=== PATIENT | male | born 1975 | race Caucasian/White ===

== ENCOUNTER 2022-10-01 12:27 | Emergency (ER) | payer MEDICAID ==
[~2022-10-01] VITALS: Ht 160 cm; Wt 84.1 kg
[~2022-10-01 12:27] MED LIST: GEMF600T89 PO; PANT-47 PO
[2022-10-01 16:15] LABS: BASOPHILS % (AUTO) 0.6 % (0-1); EOSINOPHILS # (AUTO) 0.2 X10'3 (0-0.9); HEMATOCRIT 38.5 % (42.0-52.0); HEMOGLOBIN 12.7 g/dl (14.0-17.9); LYMPHOCYTES # (AUTO) 1.8 X10'3 (1.1-4.8); LYMPHOCYTES % (AUTO) 22.2 % (21-51); MEAN CORPUSCULAR HEMOGLOBIN 28.6 PG (27.0-31.0); MEAN CORPUSCULAR VOLUME 86.6 FL (78-98); MEAN PLATELET VOLUME 6.3 FL (7.4-10.4); MONOCYTES # (AUTO) 1.1 X10'3 (0-0.9); MONOCYTES % (AUTO) 13.3 % (2-12); NEUTROPHILS % (AUTO) 60.9 % (42-75); PLATELET COUNT 322 X10'3 (140-440); RED BLOOD COUNT 4.45 X10'6 (4.70-6.10); RED CELL DISTRIBUTION WIDTH 18.7 % (11.5-14.5); WHITE BLOOD COUNT 8.2 X10'3 (4.5-11.0)
[2022-10-01 16:25] LABS: ALANINE AMINOTRANSFERASE 22 U/L (12-78); ALBUMIN 3.7 G/DL (3.4-5.0); ALBUMIN/GLOBULIN RATIO 0.8 (1.1-1.5); ALKALINE PHOSPHATASE 61 IU/L (46-116); ANION GAP 8 (8-16); ASPARTATE AMINO TRANSFERASE 21 U/L (10-37); BILIRUBIN,TOTAL 0.4 MG/DL (0.1-1.0); BLOOD UREA NITROGEN 12 MG/DL (7-18); BUN/CREATININE RATIO 15.4 (10.0-20.0); CALCIUM 9.3 MG/DL (8.5-10.1); CHLORIDE 101 MMOL/L (99-107); CREATININE 0.78 MG/DL (0.60-1.10); GLUCOSE 106 MG/DL (70-104); LIPASE 66 U/L (73-393); POTASSIUM 4.4 MMOL/L (3.5-5.1); SODIUM 137 MMOL/L (135-145); TOTAL CARBON DIOXIDE 27.6 MMOL/L (24-32); TOTAL PROTEIN 8.2 G/DL (6.4-8.2); eGFR > 90 ML/MIN
[2022-10-01 17:56] LABS: PLATELET ESTIMATE NORMAL
[2022-10-01 17:58] LABS: ANISOCYTOSIS 1+
[2022-10-01 18:31] VITALS: BP 124/76
== END 2022-10-01 18:34 | disposition home or self-care (01) ==
LOC: ER 12:27
DX: L53.8 Other specified erythematous conditions (principal); Z88.0 Allergy status to penicillin; Z79.899 Other long term (current) drug therapy
CPT/HCPCS: 36415; 71045; 80053; 83690; 85008; 85025; 93005; 93971; 99285

== ENCOUNTER 2022-11-17 02:12 | Inpatient (IN) | payer MEDICAID ==
[~2022-11-17] VITALS: Ht 160 cm; Wt 86.4 kg
[2022-11-17] VITALS (14 sets, daily range): BP systolic 89–124; BP diastolic 50–68
[~2022-11-17 02:12] MED LIST changes: +PRED20TA PO
[2022-11-17] MEDS ORDERED: nitroGLYCERIN 0.4mg/hour patch TD ONE (02:35)
[2022-11-17] MEDS ORDERED: normal saline 1000ML IV soln IVB ONE (02:35)
[2022-11-17 03:15] LABS: TOTAL CARBON DIOXIDE 29.3 MMOL/L (24-32)
[2022-11-17 03:38] LABS: ALANINE AMINOTRANSFERASE 28 U/L (12-78); ALBUMIN 3.6 G/DL (3.4-5.0); ALKALINE PHOSPHATASE 87 IU/L (46-116); ANION GAP 6 (8-16); ASPARTATE AMINO TRANSFERASE 17 U/L (10-37); BILIRUBIN,TOTAL 0.2 MG/DL (0.1-1.0); BLOOD UREA NITROGEN 20 MG/DL (7-18); BUN/CREATININE RATIO 25.3 (10.0-20.0); CALCIUM 8.6 MG/DL (8.5-10.1); CHLORIDE 105 MMOL/L (99-107); CREATININE 0.79 MG/DL (0.60-1.10); GLUCOSE 112 MG/DL (70-104); SODIUM 140 MMOL/L (135-145); TOTAL PROTEIN 7.2 G/DL (6.4-8.2); eGFR > 90 ML/MIN
[2022-11-17 03:45] LABS: MAGNESIUM 2.2 MG/DL (1.5-2.4)
[2022-11-17 03:50] LABS: BASOPHILS # (AUTO) 0.1 X10'3 (0-0.2); BASOPHILS % (AUTO) 1.1 % (0-1); EOSINOPHILS # (AUTO) 0.2 X10'3 (0-0.9); EOSINOPHILS % (AUTO) 1.3 % (0-6); HEMATOCRIT 32.7 % (42.0-52.0); HEMOGLOBIN 10.9 g/dl (14.0-17.9); LYMPHOCYTES # (AUTO) 2.4 X10'3 (1.1-4.8); LYMPHOCYTES % (AUTO) 17.5 % (21-51); MEAN CORPUSCULAR HEMOGLOBIN 29.9 PG (27.0-31.0); MEAN CORPUSCULAR HGB CONC 33.2 g/dL (33.0-36.5); MEAN CORPUSCULAR VOLUME 90.1 FL (78-98); MEAN PLATELET VOLUME 6.4 FL (7.4-10.4); NEUTROPHILS # (AUTO) 9.2 X10'3 (1.8-7.7); NEUTROPHILS % (AUTO) 66.1 % (42-75); PLATELET COUNT 348 X10'3 (140-440); RED BLOOD COUNT 3.63 X10'6 (4.70-6.10); RED CELL DISTRIBUTION WIDTH 18.6 % (11.5-14.5); WHITE BLOOD COUNT 13.9 X10'3 (4.5-11.0)
--- NOTE | 2022-11-17 04:40 | NUR ---
NITRO PATCH REMOVED 408. R/T BP 93/62 AND NEW HEADACHE
[2022-11-17] MEDS ORDERED: PREG75CA75 PO (04:50)
[2022-11-17] MEDS ORDERED: ALBU18HF2 IH (04:50)
[2022-11-17] MEDS ORDERED: TIOT18CA3 INH (04:50)
[2022-11-17] MEDS ORDERED: LEVO50TA8 PO (04:50)
[2022-11-17] MEDS ORDERED: magnesium Cl slow-release 64mg tablet PO PRN (04:50)
[2022-11-17] MEDS ORDERED: magnesium hydroxide 30ml (MOM) UD suspension PO PRN (04:50)
[2022-11-17] MEDS ORDERED: ondansetron/PF 4mg/2ml inj IV PRN (04:50)
[2022-11-17] MEDS ORDERED: HYDROcodone/acetaminophen 5mg/325mg tablet PO PRN (04:50)
[2022-11-17] MEDS ORDERED: acetaminophen 325mg tablet PO PRN ×2 (04:50)
[2022-11-17] MEDS ORDERED: potassium Cl 40MEQ/1/2NS 520ml 520 ML IV PRN (04:50)
[2022-11-17] MEDS ORDERED: magnesium 4gm in 100ml NS 100 ML IV PRN (04:50)
[2022-11-17] MEDS ORDERED: ACET325T55 PO (04:50)
[2022-11-17] MEDS ORDERED: TRAZ-251 PO (04:50)
[2022-11-17] MEDS ORDERED: potassium Cl 20 mEq SR tablet PO PRN ×2 (04:50)
[2022-11-17] MEDS ORDERED: mag hydrox/Alum hydrox/simeth 30ml oral suspension PO PRN (04:50)
[2022-11-17] MEDS ORDERED: APIX5TAB3 PO (04:50)
[2022-11-17] MEDS ORDERED: HYDR-3968 PO (04:50)
[2022-11-17] MEDS ORDERED: NICO-631 TOP (04:50)
[2022-11-17] MEDS ORDERED: magnesium 2GM in 50ml NS 50 ML IV PRN (04:50)
[2022-11-17] MEDS ORDERED: morphine 2 MG/ML inj. syringe IV PRN (04:50)
[2022-11-17] MEDS ORDERED: DULO60CA65 PO (04:50)
[2022-11-17] MEDS ORDERED: DAPS100T2 PO (04:50)
--- NOTE | 2022-11-17 04:50 | NUR ---
PT COMPLAINS OF DIAPHORESIS. STAT EKG OBTAINED. AWARE.
[2022-11-17] MEDS ORDERED: NITR0.4T51 SL (04:52)
[2022-11-17] MEDS ORDERED: OMEP40CA21 PO (04:54)
[2022-11-17] MEDS: normal saline 1000ml 1,000 ML IV SCH ×2 (05:05→15:11)
[2022-11-17] MEDS ORDERED: levoFLOXACIN 250mg tablet PO ONE (05:40)
[2022-11-17] MEDS ORDERED: albuterol 2.5 MG/3 ML nebule NEB PRN (05:50)
[2022-11-17] MEDS ORDERED: levoFLOXACIN-Levaquin 500mg/D5 100 ML IV ONE (06:00)
[2022-11-17 06:21] LABS: CHOL/HDL RATIO 5.1 (0.00-4.99); CHOLESTEROL 117 MG/DL (0-200); HDL CHOLESTEROL 23 MG/DL (35-60); LDL CHOLESTEROL 56 MG/DL (50-100); TRIGLYCERIDES 285 MG/DL (20-135)
[2022-11-17] MEDS: docusate sod 100mg capsule PO SCH ×2 (06:29→20:20)
[2022-11-17] MEDS: pantoprazole 40mg Tablet.DR PO SCH ×2 (06:29→08:39)
[2022-11-17] MEDS: levoTHYROXINE 25mcg tablet PO SCH (06:29)
[2022-11-17] MEDS: morphine 2 MG/ML inj. syringe IV PRN (06:35)
[2022-11-17 07:10] LABS: ANISOCYTOSIS 2+; PLATELET ESTIMATE NORMAL; POLYCHROMASIA 1+; ROULEAUX 1+
--- NOTE | 2022-11-17 07:39 | NUR ---
REPORT TAKEN FROM ED RN . pATIENT ARRIVED TO FLOOR WITH NO C/O CP AT THIS TIME. VITALS STABLE. TELEL ON. COMPUTER AIDE IN ROOM . PATIENT ORIENTED TO ROOM AND CALL LIGHT. [facility] NOTIFIED PATIENT HAS ARRIVED TO FLOOR.
[2022-11-17] MEDS ORDERED: DAPSONE 100 MG PO SCH (08:00)
[2022-11-17] MEDS: duloxetine 30mg CAPSULE.DR PO SCH (08:39)
[2022-11-17] MEDS: pregabalin 75mg capsule PO SCH ×2 (08:39→20:20)
[2022-11-17] MEDS: apixaban 5mg tablet PO SCH ×2 (08:40→20:21)
[2022-11-17] MEDS: nicotine 14mg patch - 24hr TD SCH (08:41)
[2022-11-17] MEDS: ipratropium 0.5 MG/2.5ML nebule NEB SCH ×3 (09:00→20:27)
--- NOTE | 2022-11-17 09:18 | NUR ---
patient off floor to stress lab
[2022-11-17 09:27] LABS: D-DIMER 0.56 MG/L FEU (0-0.50)
[2022-11-17] MEDS ORDERED: regadenoson 0.4mg/5ml syringe IV ONE (09:35)
--- NOTE | 2022-11-17 10:50 | NUR ---
PATIENT BACK FROM [facility]UC [facility]
--- NOTE | 2022-11-17 12:00 | NUR ---
Page Sent promotional table spacer PAGER ID: [phone] MESSAGE: [id number] SAI. STRESS TEST RESULT S AVAILABLE IN [employer]. OK TO FEED PATIENT HEART HEALTHY DIET? [email or web address] (108 character message out of a maximum of 240)
--- NOTE | 2022-11-17 12:01 | NUR ---
HOME MEDS TAKEN TO PHARMACY
--- NOTE | 2022-11-17 12:03 | NUR ---
NOTIFIED BY PHARMACY THAT [employer] [facility] HAS BLACK MOLD IN IT AND THEY WILL NOT BE DISTRIBUTING IT
--- NOTE | 2022-11-17 18:00 | NUR ---
Patient in room PCU 3014. I have received report from Helena MEDINA and had the opportunity to ask questions and assume patient care.
--- NOTE | 2022-11-17 18:05 | NUR ---
Problems reprioritized. Patient report given, questions answered & plan of care reviewed with CHET MEDINA. PATIENT RESTING IN BED IN NO ACUTE DISTRESS.
[2022-11-17] MEDS ORDERED: enoxaparin 40mg/0.4ml syringe SQ SCH (20:00)
[2022-11-17] MEDS: HYDROcodone/acetaminophen 10/325mg tab PO PRN (20:21)
[2022-11-17] MEDS: traZODone 50mg tablet PO SCH (20:21)
[2022-11-18] VITALS (7 sets, daily range): BP systolic 90–121; BP diastolic 49–72
[2022-11-18] MEDS: normal saline 1000ml 1,000 ML IV SCH (00:50)
--- NOTE | 2022-11-18 01:46 | NUR ---
patient slept on/off throughout the night. patient was able to walk to bathroom.
[2022-11-18] MEDS: ipratropium 0.5 MG/2.5ML nebule NEB SCH ×3 (07:04→20:45)
[2022-11-18 07:21] LABS: BASOPHILS # (AUTO) 0.1 X10'3 (0-0.2); BASOPHILS % (AUTO) 0.9 % (0-1); EOSINOPHILS # (AUTO) 0.3 X10'3 (0-0.9); HEMATOCRIT 33.5 % (42.0-52.0); HEMOGLOBIN 10.9 g/dl (14.0-17.9); LYMPHOCYTES # (AUTO) 2.5 X10'3 (1.1-4.8); LYMPHOCYTES % (AUTO) 25.5 % (21-51); MEAN CORPUSCULAR HEMOGLOBIN 29.6 PG (27.0-31.0); MEAN CORPUSCULAR HGB CONC 32.6 g/dL (33.0-36.5); MEAN CORPUSCULAR VOLUME 90.6 FL (78-98); MEAN PLATELET VOLUME 6.6 FL (7.4-10.4); MONOCYTES # (AUTO) 1.4 X10'3 (0-0.9); MONOCYTES % (AUTO) 14.3 % (2-12); NEUTROPHILS # (AUTO) 5.4 X10'3 (1.8-7.7); NEUTROPHILS % (AUTO) 56.3 % (42-75); PLATELET COUNT 334 X10'3 (140-440); RED BLOOD COUNT 3.69 X10'6 (4.70-6.10); RED CELL DISTRIBUTION WIDTH 18.6 % (11.5-14.5); WHITE BLOOD COUNT 9.6 X10'3 (4.5-11.0)
[2022-11-18 07:22] LABS: ALANINE AMINOTRANSFERASE 20 U/L (12-78); ALBUMIN 3.1 G/DL (3.4-5.0); ALBUMIN/GLOBULIN RATIO 0.9 (1.1-1.5); ALKALINE PHOSPHATASE 50 IU/L (46-116); ANION GAP 6 (8-16); ASPARTATE AMINO TRANSFERASE 18 U/L (10-37); BILIRUBIN,TOTAL 0.4 MG/DL (0.1-1.0); BLOOD UREA NITROGEN 13 MG/DL (7-18); BUN/CREATININE RATIO 16.3 (10.0-20.0); CALCIUM 8.5 MG/DL (8.5-10.1); CHLORIDE 107 MMOL/L (99-107); GLUCOSE 100 MG/DL (70-104); POTASSIUM 4.3 MMOL/L (3.5-5.1); SODIUM 140 MMOL/L (135-145); TOTAL CARBON DIOXIDE 27.1 MMOL/L (24-32); TOTAL PROTEIN 6.5 G/DL (6.4-8.2); eGFR > 90 ML/MIN
[2022-11-18] MEDS: levoTHYROXINE 25mcg tablet PO SCH (07:52)
[2022-11-18] MEDS: docusate sod 100mg capsule PO SCH ×2 (07:52→20:27)
[2022-11-18] MEDS: duloxetine 30mg CAPSULE.DR PO SCH (07:52)
[2022-11-18] MEDS: pregabalin 75mg capsule PO SCH ×2 (07:52→20:27)
[2022-11-18] MEDS: HYDROcodone/acetaminophen 10/325mg tab PO PRN ×3 (07:53→20:25)
[2022-11-18] MEDS: pantoprazole 40mg Tablet.DR PO SCH (07:53)
[2022-11-18] MEDS: apixaban 5mg tablet PO SCH ×2 (07:53→20:28)
[2022-11-18] MEDS: DAPSONE 100 MG PO SCH (07:54)
[2022-11-18] MEDS: nicotine 14mg patch - 24hr TD SCH (07:55)
--- NOTE | 2022-11-18 09:21 | NUR ---
patient c/o chest pressure following walking. HR 140's . EKG being done . Dr Woodson made aware . will continue to monitor
[2022-11-18] MEDS: morphine 2 MG/ML inj. syringe IV PRN (10:00)
[2022-11-18] MEDS ORDERED: iohexol 350MG/ML 100ml bottle IV ONE (11:24)
[2022-11-18] MEDS: aspirin 81mg tab.chew PO SCH (12:56)
[2022-11-18] MEDS: isosorbide mononitrate 30mg tab.SR.24H PO SCH (12:57)
--- NOTE | 2022-11-18 14:13 | NUR ---
PRESSURE ULCER EDUCATION: DEFINITION: A pressure ulcer is an area of skin that breaks down when you stay in one position too long. The constant pressure against the skin reduces the blood flow to that area and the affected tissue dies. CAUSES: "Being bedridden or in a wheelchair "Fragile skin "Having a chronic condition, such as diabetes or vascular disease "Inability to move certain parts of your body without assistance "Older age "Incontinence of urine or stool SYMPTOMS: "A reddened area that DOES NOT turn white when pressed on - this can be the beginning of a pressure ulcer "A blister, deep sore or a crater - these can be advanced pressure ulcers FIRST AID: "Relieve the pressure on this area "Keep the area clean and dry "Call your primary doctor if you see any of the above symptoms "DO NOT massage the area "DO NOT use a donut shaped or ring shaped pillow- these actually interfere with the blood flow and cause complications PREVENTION: "Check for pressure ulcers everyday "Change position at least every two hours to relieve pressure "Use items that help relieve pressure- pillows, sheepskin, foam padding, and powders. "Keep skin clean and dry "Eat healthy well balanced meals "Exercise daily IF YOU SEE ANY OF THESE SYMPTOMS WHILE IN THE HOSPITAL - TELL YOUR NURSE IMMEDIATELY. IF YOU SEE ANY OF THESE SYMPTOMS WHILE AT HOME OR HAVE ANY QUESTIONS OR CONCERNS ABOUT PRESSURE ULCERS - CALL YOUR PRIMARY DOCTOR IMMEDIATELY. Addendum: 11/18/22 at 1413 by uLpe Kaye RN Amended: Links added.
--- NOTE | 2022-11-18 15:41 | NUR ---
PATIENT C/O CHEST PAIN AGAIN. hr 110. STATE IT CAME AFTER EATING, ALSO THAT HE FELT CONSTIPATED. MOM given and maalox, patient reported relief following admin of maalox . Bayard was given also for pain 02/06. will continue to monitor
--- NOTE | 2022-11-18 18:38 | NUR ---
patient appears stable. report given to Abena MEDINA
[2022-11-18] MEDS: metoprolol tartrate 25mg tablet PO SCH ×2 (20:27→22:31)
[2022-11-18] MEDS: traZODone 50mg tablet PO SCH (20:27)
--- NOTE | 2022-11-18 23:19 | NUR ---
patient complained of having trouble swallowing he did have new medications ordered this am due to complaining of chest pain. dr Smith came to bedside to assess patient. per md hold the metropolol am dose just incase but it is unusual. patient was eating a sandwich and yogart. patient states feeling better.
[2022-11-19] VITALS: BP 104/64
[2022-11-19 03:25] VITALS: BP 97/57
[2022-11-19 06:46] LABS: BASOPHILS # (AUTO) 0.1 X10'3 (0-0.2); BASOPHILS % (AUTO) 0.7 % (0-1); EOSINOPHILS # (AUTO) 0.4 X10'3 (0-0.9); EOSINOPHILS % (AUTO) 4.6 % (0-6); HEMATOCRIT 33.2 % (42.0-52.0); HEMOGLOBIN 10.7 g/dl (14.0-17.9); LYMPHOCYTES # (AUTO) 2.3 X10'3 (1.1-4.8); LYMPHOCYTES % (AUTO) 28.9 % (21-51); MEAN CORPUSCULAR HEMOGLOBIN 29.1 PG (27.0-31.0); MEAN CORPUSCULAR HGB CONC 32.3 g/dL (33.0-36.5); MEAN PLATELET VOLUME 6.6 FL (7.4-10.4); MONOCYTES # (AUTO) 1.2 X10'3 (0-0.9); MONOCYTES % (AUTO) 15.3 % (2-12); NEUTROPHILS % (AUTO) 50.5 % (42-75); PLATELET COUNT 333 X10'3 (140-440); RED BLOOD COUNT 3.69 X10'6 (4.70-6.10); RED CELL DISTRIBUTION WIDTH 18.5 % (11.5-14.5)
[2022-11-19 07:00] LABS: ALANINE AMINOTRANSFERASE 20 U/L (12-78); ALBUMIN/GLOBULIN RATIO 0.8 (1.1-1.5); ALKALINE PHOSPHATASE 50 IU/L (46-116); ANION GAP 4 (8-16); ASPARTATE AMINO TRANSFERASE 15 U/L (10-37); BILIRUBIN,TOTAL 0.3 MG/DL (0.1-1.0); BLOOD UREA NITROGEN 17 MG/DL (7-18); BUN/CREATININE RATIO 17.5 (10.0-20.0); CHLORIDE 103 MMOL/L (99-107); CREATININE 0.97 MG/DL (0.60-1.10); GLUCOSE 108 MG/DL (70-104); POTASSIUM 4.8 MMOL/L (3.5-5.1); SODIUM 137 MMOL/L (135-145); TOTAL CARBON DIOXIDE 30.4 MMOL/L (24-32); TOTAL PROTEIN 6.7 G/DL (6.4-8.2); eGFR 84 ML/MIN
[2022-11-19 07:25] VITALS: BP 106/57
[2022-11-19] MEDS: docusate sod 100mg capsule PO SCH (08:00)
[2022-11-19] MEDS: DAPSONE 100 MG PO SCH (08:00)
[2022-11-19] MEDS ORDERED: atorvastatin 20mg tablet PO SCH (08:00)
[2022-11-19] MEDS: ipratropium 0.5 MG/2.5ML nebule NEB SCH (08:26)
[2022-11-19] MEDS ORDERED: ISOS30TA84 PO (09:28)
[2022-11-19] MEDS ORDERED: ASPI81TA53 PO (09:28)
[2022-11-19] MEDS ORDERED: METO-395 PO (09:28)
[2022-11-19] MEDS ORDERED: ATOR20TA66 PO (09:28)
[2022-11-19] MEDS: apixaban 5mg tablet PO SCH (09:42)
[2022-11-19] MEDS: duloxetine 30mg CAPSULE.DR PO SCH (09:42)
[2022-11-19] MEDS: pregabalin 75mg capsule PO SCH (09:43)
[2022-11-19] MEDS: levoTHYROXINE 25mcg tablet PO SCH (09:43)
[2022-11-19] MEDS: pantoprazole 40mg Tablet.DR PO SCH (09:43)
[2022-11-19] MEDS: aspirin 81mg tab.chew PO SCH (09:43)
[2022-11-19] MEDS: isosorbide mononitrate 30mg tab.SR.24H PO SCH (09:43)
[2022-11-19] MEDS: nicotine 14mg patch - 24hr TD SCH (09:45)
[2022-11-19 11:00] VITALS: BP 100/57
[2022-11-19] MEDS: HYDROcodone/acetaminophen 10/325mg tab PO PRN (12:13)
--- NOTE | 2022-11-19 15:13 | NUR ---
[facility] note, primary nurse stated the pt is leaving at 1430 today, he will require supplies and dressings re-done as he is just out of the shower and his ride is here. Time out, wounds were cleansed well with normal saline, patted dry, honey and alginate applied, covered with kerlix roll and secured with tape. Supplies provided for 2 weeks, to get him through until he can make his appointment with [facility] wound center. I gave him our card and instructed him to call and make an initial appointment cinthia, it may take time to get in to authorize his insurance, ect. I also notified the facilities planner and spoke to September in out-pt wound center. The patient is seen at a wound clinic up in [place] but they only provide dressing changes. He stated he would really like to come here and furthermore he would benefit from being seen in our wound clinic. He was packed up and escorted out via WC with supplies in hand.
--- NOTE | 2022-11-19 15:53 | NUR ---
Pt stable for discharge per Dr. Woodson. All discharge instructions reviewed with patient and all questions answered, pt verbalized understanding. New medications e-scripted to pharmacy in [place]. PIV discontinued, cannula intact. Tele discontinued. Wound care pictures taken before discharge. All belongings collected and sent with patient. Wheeled to lobby via nursing staff and picked up by spouse.
== END 2022-11-19 14:35 | disposition home or self-care (01) | DRG 198 ==
LOC: ER 02:12 → ED HOLD 04:50 → UNDOADMIN 04:50 → ED HOLD 04:54 → EDBEDREQ 05:43 → ED HOLD 07:25 → PCU 3S 07:25
PROVIDERS: ADMIT Internal Medicine; ATTEND Family Medicine
PROC: 4A02XM4 Measurement of Cardiac Total Activity, External Approach (ICD-10-PCS; principal; 2022-11-17)
PROC: 3E073KZ Introduction of Other Diagnostic Substance into Coronary Artery, Percutaneous Approach (ICD-10-PCS; 2022-11-17)
PROC: B32T1ZZ Computerized Tomography (CT Scan) of Left Pulmonary Artery using Low Osmolar Contrast (ICD-10-PCS; 2022-11-18)
PROC: B3201ZZ Computerized Tomography (CT Scan) of Thoracic Aorta using Low Osmolar Contrast (ICD-10-PCS; 2022-11-18)
PROC: B32S1ZZ Computerized Tomography (CT Scan) of Right Pulmonary Artery using Low Osmolar Contrast (ICD-10-PCS; 2022-11-18)
DX: I20.9 Angina pectoris, unspecified (principal); S81.801A Unspecified open wound, right lower leg, initial encounter; S81.802A Unspecified open wound, left lower leg, initial encounter; J44.9 Chronic obstructive pulmonary disease, unspecified; R00.0 Tachycardia, unspecified; X58.XXXA Exposure to other specified factors, initial encounter; Z83.3 Family history of diabetes mellitus; Z86.718 Personal history of other venous thrombosis and embolism; Z87.891 Personal history of nicotine dependence; Z88.0 Allergy status to penicillin; Z90.49 Acquired absence of other specified parts of digestive tract; Z79.899 Other long term (current) drug therapy; Y93.89 Activity, other specified; Y92.89 Other specified places as the place of occurrence of the external cause; Y99.8 Other external cause status; Z79.01 Long term (current) use of anticoagulants
CPT/HCPCS: 36415; 71045; 71275; 78452; 80053; 80061; 83605; 83735; 83880; 84145; 84443; 84484; 85008; 85025; 85379; 85610; 87040; 87081; 93005; 93017; 93306; 94640; 94760; 97161; 97530; 99285; A4615; A4649; A6196; A6223; A6260; A6446; A6449; A9500; G0378; J1956; J2270; J2405; J2785; J3490; J7030; Q9967

== ENCOUNTER 2023-05-06 15:31 | Inpatient (IN) | payer MEDICAID ==
[~2023-05-06] VITALS: Ht 160 cm; Wt 99.9 kg
[~2023-05-06 15:31] MED LIST changes: +ALBU18HF2 IH; +APIX5TAB3 PO; +DAPS100T2 PO; +GABA-530 PO; -GEMF600T89 PO; +IBUP-1985 PO; +LEVO50TA8 PO; +METO25TA6 PO; -PRED20TA PO; +TIOT18CA3 INH
[2023-05-06] MEDS ORDERED: aspirin 81mg tab.chew PO ONE (15:55)
[2023-05-06 18:01] LABS: BASOPHILS # (AUTO) 0.1 X10'3 (0-0.2); BASOPHILS % (AUTO) 0.7 % (0-1); EOSINOPHILS # (AUTO) 0.3 X10'3 (0-0.9); EOSINOPHILS % (AUTO) 3.6 % (0-6); HEMATOCRIT 30.3 % (42.0-52.0); HEMOGLOBIN 9.7 g/dl (14.0-17.9); LYMPHOCYTES # (AUTO) 1.6 X10'3 (1.1-4.8); LYMPHOCYTES % (AUTO) 16.6 % (21-51); MEAN CORPUSCULAR HEMOGLOBIN 28.3 PG (27.0-31.0); MEAN CORPUSCULAR VOLUME 88.3 FL (78-98); MEAN PLATELET VOLUME 7.2 FL (7.4-10.4); MONOCYTES # (AUTO) 1.3 X10'3 (0-0.9); MONOCYTES % (AUTO) 13.2 % (2-12); NEUTROPHILS # (AUTO) 6.2 X10'3 (1.8-7.7); NEUTROPHILS % (AUTO) 65.9 % (42-75); PLATELET COUNT 386 X10'3 (140-440); RED BLOOD COUNT 3.43 X10'6 (4.70-6.10); RED CELL DISTRIBUTION WIDTH 19.1 % (11.5-14.5); WHITE BLOOD COUNT 9.4 X10'3 (4.5-11.0)
[2023-05-06 18:23] LABS: ALANINE AMINOTRANSFERASE 35 U/L (12-78); ALBUMIN 3.1 G/DL (3.4-5.0); ALBUMIN/GLOBULIN RATIO 0.8 (1.1-1.5); ALKALINE PHOSPHATASE 76 IU/L (46-116); ANION GAP 6 (8-16); ASPARTATE AMINO TRANSFERASE 20 U/L (10-37); BILIRUBIN,TOTAL 0.4 MG/DL (0.1-1.0); BLOOD UREA NITROGEN 23 MG/DL (7-18); BUN/CREATININE RATIO 25.6 (10.0-20.0); CHLORIDE 102 MMOL/L (99-107); GLUCOSE 122 MG/DL (70-104); MAGNESIUM 1.9 MG/DL (1.5-2.4); POTASSIUM 4.2 MMOL/L (3.5-5.1); SODIUM 138 MMOL/L (135-145); TOTAL CARBON DIOXIDE 29.6 MMOL/L (24-32); TOTAL PROTEIN 7.2 G/DL (6.4-8.2); eCRCL 83 ML/MIN; eGFR > 90 ML/MIN
[2023-05-06] MEDS ORDERED: PERFLUTREN PROTEIN-A MICROSPHR (Optison) 0.22 MG/ML 3ML VIAL IV ONE (18:45)
[2023-05-06] MEDS ORDERED: iohexol 350MG/ML 100ml bottle IV ONE (18:46)
[2023-05-06 19:24] LABS: PLATELET ESTIMATE NORMAL; TOTAL CELLS COUNTED 100
[2023-05-06 19:25] LABS: ANISOCYTOSIS 2+
[2023-05-06 19:27] LABS: POLYCHROMASIA FEW; TEAR DROP CELLS FEW
[2023-05-06] MEDS ORDERED: CefTRIAXone 2gm/D5W 50ml BAG 50 ML IV ONE (20:15)
[2023-05-06] MEDS ORDERED: acetaminophen 325mg tablet PO PRN ×2 (20:20)
[2023-05-06] MEDS ORDERED: potassium Cl 20 mEq SR tablet PO PRN ×2 (20:20)
[2023-05-06] MEDS ORDERED: magnesium Cl slow-release 64mg tablet PO PRN (20:20)
[2023-05-06] MEDS ORDERED: potassium Cl 40MEQ/1/2NS 520ml 520 ML IV PRN (20:20)
[2023-05-06] MEDS ORDERED: magnesium 2GM in 50ml NS 50 ML IV PRN (20:20)
[2023-05-06] MEDS ORDERED: morphine 2 MG/ML inj. syringe IV PRN (20:20)
[2023-05-06] MEDS ORDERED: ondansetron/PF 4mg/2ml inj IV PRN (20:20)
[2023-05-06] MEDS ORDERED: magnesium 4gm in 100ml NS 100 ML IV PRN (20:20)
[2023-05-06] MEDS ORDERED: albuterol 2.5 MG/3 ML nebule NEB PRN (20:25)
[2023-05-06] MEDS: cefepime 2g/NS 100ml ADVANTAGE 100 ML IV SCH (21:25)
[2023-05-06] MEDS: azithromycin/NS 500mg/250ml 250 ML IV SCH (22:32)
[2023-05-07] MEDS: HYDROcodone/acetaminophen 5mg/325mg tablet PO PRN ×2 (02:44→23:55)
[2023-05-07] MEDS ORDERED: azithromycin/NS 500mg/250ml 250 ML IV SCH (08:00)
[2023-05-07] MEDS: cefepime 2g/NS 100ml ADVANTAGE 100 ML IV SCH ×2 (08:16→20:34)
[2023-05-07 08:18] LABS: BASOPHILS % (AUTO) 0.6 % (0-1); EOSINOPHILS # (AUTO) 0.4 X10'3 (0-0.9); EOSINOPHILS % (AUTO) 4.5 % (0-6); HEMATOCRIT 29.8 % (42.0-52.0); HEMOGLOBIN 9.4 g/dl (14.0-17.9); LYMPHOCYTES # (AUTO) 1.5 X10'3 (1.1-4.8); LYMPHOCYTES % (AUTO) 18.5 % (21-51); MEAN CORPUSCULAR HGB CONC 31.6 g/dL (33.0-36.5); MEAN CORPUSCULAR VOLUME 88.8 FL (78-98); MEAN PLATELET VOLUME 6.7 FL (7.4-10.4); MONOCYTES # (AUTO) 1.5 X10'3 (0-0.9); MONOCYTES % (AUTO) 17.6 % (2-12); NEUTROPHILS # (AUTO) 4.9 X10'3 (1.8-7.7); NEUTROPHILS % (AUTO) 58.8 % (42-75); PLATELET COUNT 337 X10'3 (140-440); RED BLOOD COUNT 3.35 X10'6 (4.70-6.10); WHITE BLOOD COUNT 8.3 X10'3 (4.5-11.0)
[2023-05-07 08:37] LABS: TOTAL CELLS COUNTED 100
[2023-05-07 08:38] LABS: ANISOCYTOSIS 2+; PLATELET ESTIMATE NORMAL; POLYCHROMASIA FEW; STOMATOCYTES 1+
[2023-05-07] MEDS: azithromycin/NS 500mg/250ml 250 ML IV SCH (08:55)
[2023-05-07 09:00] LABS: ALANINE AMINOTRANSFERASE 29 U/L (12-78); ALBUMIN 3.1 G/DL (3.4-5.0); ALBUMIN/GLOBULIN RATIO 0.8 (1.1-1.5); ALKALINE PHOSPHATASE 50 IU/L (46-116); ANION GAP 6 (8-16); ASPARTATE AMINO TRANSFERASE 21 U/L (10-37); BILIRUBIN,TOTAL 0.5 MG/DL (0.1-1.0); BLOOD UREA NITROGEN 22 MG/DL (7-18); BUN/CREATININE RATIO 27.8 (10.0-20.0); CALCIUM 9.1 MG/DL (8.5-10.1); CHLORIDE 103 MMOL/L (99-107); CREATININE 0.79 MG/DL (0.60-1.10); GLUCOSE 96 MG/DL (70-104); POTASSIUM 4.3 MMOL/L (3.5-5.1); SODIUM 138 MMOL/L (135-145); TOTAL CARBON DIOXIDE 28.8 MMOL/L (24-32); eCRCL 94 ML/MIN; eGFR > 90 ML/MIN
[2023-05-07] MEDS ORDERED: regadenoson 0.4mg/5ml syringe IV PRN (12:20)
[2023-05-07] MEDS ORDERED: nitroGLYCERIN 0.4mg SUBLingual tab SL PRN ×2 (12:20→16:30)
[2023-05-07] MEDS ORDERED: metoprolol tartrate 1mg/ml inj IV PRN (12:20)
[2023-05-07] MEDS ORDERED: aminophylline 250mg/10ml inj. IV PRN (12:20)
[2023-05-07 19:00] VITALS: BP 113/59; PULSE 109; RESP 18; TEMP 99.5; O2SAT 96
[2023-05-07 20:00] VITALS: RESP 18; O2SAT 96
[2023-05-07] MEDS ORDERED: enoxaparin 40mg/0.4ml syringe SQ SCH (20:00)
[2023-05-07] MEDS: carvedilol 6.25mg tablet PO SCH (20:35)
[2023-05-07] MEDS: apixaban 5mg tablet PO SCH (20:35)
[2023-05-07] MEDS: furosemide 20MG tablet PO SCH (20:35)
[2023-05-07 22:00] VITALS: BP 103/55; PULSE 116; RESP 20; TEMP 98.2; O2SAT 96
[2023-05-08] VITALS (16 sets, daily range): BP systolic 92–121; BP diastolic 49–76; PULSE 85–109; RESP 14–19; TEMP 97.3–98.7; O2SAT 96–99
[2023-05-08] MEDS: cefepime 2g/NS 100ml ADVANTAGE 100 ML IV SCH ×2 (06:55→21:21)
[2023-05-08 08:00] LABS: BASOPHILS # (AUTO) 0.1 X10'3 (0-0.2); BASOPHILS % (AUTO) 0.6 % (0-1); EOSINOPHILS # (AUTO) 0.5 X10'3 (0-0.9); EOSINOPHILS % (AUTO) 5.8 % (0-6); HEMATOCRIT 30.2 % (42.0-52.0); HEMOGLOBIN 9.6 g/dl (14.0-17.9); LYMPHOCYTES # (AUTO) 1.2 X10'3 (1.1-4.8); LYMPHOCYTES % (AUTO) 14.8 % (21-51); MEAN CORPUSCULAR HEMOGLOBIN 27.8 PG (27.0-31.0); MEAN CORPUSCULAR HGB CONC 31.7 g/dL (33.0-36.5); MEAN CORPUSCULAR VOLUME 87.7 FL (78-98); MEAN PLATELET VOLUME 6.9 FL (7.4-10.4); MONOCYTES # (AUTO) 1.1 X10'3 (0-0.9); MONOCYTES % (AUTO) 13.5 % (2-12); NEUTROPHILS # (AUTO) 5.2 X10'3 (1.8-7.7); NEUTROPHILS % (AUTO) 65.3 % (42-75); PLATELET COUNT 361 X10'3 (140-440); RED BLOOD COUNT 3.44 X10'6 (4.70-6.10); RED CELL DISTRIBUTION WIDTH 19.2 % (11.5-14.5)
[2023-05-08] MEDS: azithromycin/NS 500mg/250ml 250 ML IV SCH (08:09)
[2023-05-08 08:15] LABS: ALANINE AMINOTRANSFERASE 31 U/L (12-78); ALBUMIN 3.4 G/DL (3.4-5.0); ALBUMIN/GLOBULIN RATIO 0.8 (1.1-1.5); ALKALINE PHOSPHATASE 57 IU/L (46-116); ANION GAP 6 (8-16); ASPARTATE AMINO TRANSFERASE 21 U/L (10-37); BILIRUBIN,TOTAL 0.6 MG/DL (0.1-1.0); BLOOD UREA NITROGEN 16 MG/DL (7-18); CALCIUM 9.4 MG/DL (8.5-10.1); CHLORIDE 103 MMOL/L (99-107); CHOL/HDL RATIO 3.5 (0.00-4.99); CHOLESTEROL 112 MG/DL (0-200); GLUCOSE 106 MG/DL (70-104); HDL CHOLESTEROL 32 MG/DL (35-60); LDL CHOLESTEROL 62 MG/DL (50-100); POTASSIUM 4.1 MMOL/L (3.5-5.1); SODIUM 138 MMOL/L (135-145); TOTAL CARBON DIOXIDE 28.9 MMOL/L (24-32); TOTAL PROTEIN 7.5 G/DL (6.4-8.2); TRIGLYCERIDES 130 MG/DL (20-135); eCRCL 93 ML/MIN; eGFR > 90 ML/MIN
[2023-05-08 08:25] LABS: HEMOGLOBIN A1C 4.8 % (4.5-6.2)
[2023-05-08] MEDS: furosemide 20MG tablet PO SCH ×2 (10:46→21:21)
[2023-05-08] MEDS: apixaban 5mg tablet PO SCH ×2 (10:46→21:21)
[2023-05-08] MEDS: carvedilol 6.25mg tablet PO SCH ×2 (10:46→21:21)
[2023-05-08] MEDS: aspirin 81mg tab.chew PO SCH (10:47)
[2023-05-08] MEDS: atorvastatin 20mg tablet PO SCH (10:47)
[2023-05-08] MEDS: spironolactone 25 MG tablet PO SCH (10:47)
[2023-05-08] MEDS: HYDROcodone/acetaminophen 5mg/325mg tablet PO PRN ×2 (11:01→21:20)
[2023-05-08] MEDS: potassium Cl 20 mEq SR tablet PO SCH (12:31)
[2023-05-09 02:00] VITALS: BP 118/76; PULSE 83; RESP 14; TEMP 98.1; O2SAT 99
[2023-05-09 06:00] VITALS: BP 135/72; PULSE 87; RESP 18; TEMP 98.4; O2SAT 96
[2023-05-09 07:31] LABS: BASOPHILS # (AUTO) 0.1 X10'3 (0-0.2); BASOPHILS % (AUTO) 0.8 % (0-1); EOSINOPHILS # (AUTO) 0.4 X10'3 (0-0.9); EOSINOPHILS % (AUTO) 5.8 % (0-6); HEMATOCRIT 31.6 % (42.0-52.0); HEMOGLOBIN 10.1 g/dl (14.0-17.9); LYMPHOCYTES # (AUTO) 1.2 X10'3 (1.1-4.8); LYMPHOCYTES % (AUTO) 16.4 % (21-51); MEAN CORPUSCULAR HEMOGLOBIN 28.1 PG (27.0-31.0); MEAN CORPUSCULAR VOLUME 87.6 FL (78-98); MEAN PLATELET VOLUME 6.5 FL (7.4-10.4); MONOCYTES # (AUTO) 1.1 X10'3 (0-0.9); MONOCYTES % (AUTO) 14.9 % (2-12); NEUTROPHILS # (AUTO) 4.7 X10'3 (1.8-7.7); NEUTROPHILS % (AUTO) 62.1 % (42-75); PLATELET COUNT 362 X10'3 (140-440); RED CELL DISTRIBUTION WIDTH 19.2 % (11.5-14.5); WHITE BLOOD COUNT 7.5 X10'3 (4.5-11.0)
[2023-05-09 07:46] LABS: ALANINE AMINOTRANSFERASE 29 U/L (12-78); ALBUMIN 3.5 G/DL (3.4-5.0); ALBUMIN/GLOBULIN RATIO 0.9 (1.1-1.5); ALKALINE PHOSPHATASE 53 IU/L (46-116); ANION GAP 7 (8-16); ASPARTATE AMINO TRANSFERASE 22 U/L (10-37); BILIRUBIN,TOTAL 0.6 MG/DL (0.1-1.0); BLOOD UREA NITROGEN 13 MG/DL (7-18); BUN/CREATININE RATIO 16.3 (10.0-20.0); CALCIUM 9.4 MG/DL (8.5-10.1); CHLORIDE 102 MMOL/L (99-107); GLUCOSE 111 MG/DL (70-104); SODIUM 137 MMOL/L (135-145); TOTAL CARBON DIOXIDE 27.8 MMOL/L (24-32); TOTAL PROTEIN 7.3 G/DL (6.4-8.2); eCRCL 93 ML/MIN; eGFR > 90 ML/MIN
[2023-05-09] MEDS: cefepime 2g/NS 100ml ADVANTAGE 100 ML IV SCH (07:51)
[2023-05-09] MEDS ORDERED: EMPAGLIFLOZIN 10 MG TABLET PO SCH (08:00)
[2023-05-09] MEDS: furosemide 20MG tablet PO SCH (08:00)
[2023-05-09] MEDS: atorvastatin 20mg tablet PO SCH (08:00)
[2023-05-09] MEDS: carvedilol 6.25mg tablet PO SCH (08:00)
[2023-05-09] MEDS: azithromycin/NS 500mg/250ml 250 ML IV SCH (08:00)
[2023-05-09] MEDS: apixaban 5mg tablet PO SCH (08:00)
[2023-05-09] MEDS: aspirin 81mg tab.chew PO SCH (08:30)
[2023-05-09] MEDS: spironolactone 25 MG tablet PO SCH (08:30)
[2023-05-09 08:35] LABS: PLATELET ESTIMATE NORMAL
[2023-05-09 08:37] LABS: ANISOCYTOSIS 2+
[2023-05-09 08:38] LABS: ELLIPTOCYTES FEW
[2023-05-09 11:00] VITALS: BP 117/70; PULSE 107; RESP 19; TEMP 97; O2SAT 97
[2023-05-09] MEDS: potassium Cl 20 mEq SR tablet PO SCH (12:00)
[2023-05-10] MEDS ORDERED: lisinopril 20mg tablet PO SCH (16:00)
== END 2023-05-09 16:00 | DRG 198 ==
LOC: ER 15:31 → ED HOLD 20:23 → PCU 3S 05-07 19:00
PROVIDERS: ADMIT Internal Medicine; ATTEND Family Medicine
PROC: 4A02XM4 Measurement of Cardiac Total Activity, External Approach (ICD-10-PCS; principal; 2023-05-06)
PROC: 3E073KZ Introduction of Other Diagnostic Substance into Coronary Artery, Percutaneous Approach (ICD-10-PCS; 2023-05-06)
PROC: B32T1ZZ Computerized Tomography (CT Scan) of Left Pulmonary Artery using Low Osmolar Contrast (ICD-10-PCS; 2023-05-08)
PROC: B3201ZZ Computerized Tomography (CT Scan) of Thoracic Aorta using Low Osmolar Contrast (ICD-10-PCS; 2023-05-08)
PROC: B32S1ZZ Computerized Tomography (CT Scan) of Right Pulmonary Artery using Low Osmolar Contrast (ICD-10-PCS; 2023-05-08)
DX: I20.9 Angina pectoris, unspecified (principal); I50.31 Acute diastolic (congestive) heart failure; J18.9 Pneumonia, unspecified organism; I11.0 Hypertensive heart disease with heart failure; J44.0 Chronic obstructive pulmonary disease with (acute) lower respiratory infection; E03.9 Hypothyroidism, unspecified; Z20.822 Contact with and (suspected) exposure to COVID-19; Z86.718 Personal history of other venous thrombosis and embolism; Z87.891 Personal history of nicotine dependence; Z90.49 Acquired absence of other specified parts of digestive tract; Z79.01 Long term (current) use of anticoagulants; Z79.899 Other long term (current) drug therapy; Z83.3 Family history of diabetes mellitus
CPT/HCPCS: 36415; 71045; 71275; 78452; 80053; 80061; 83036; 83605; 83735; 83880; 84145; 84484; 85007; 85008; 85025; 87040; 87811; 93017; 93306; 99285; A9500; G0378; J0456; J0692; J2785; J3490; J7040; Q9967

== ENCOUNTER 2023-06-03 01:41 | Emergency (ER) | payer MEDICAID ==
[~2023-06-03] VITALS: Ht 160 cm; Wt 99.0 kg
[2023-06-03 02:02] LABS: BASOPHILS % (AUTO) 0.6 % (0-1); EOSINOPHILS # (AUTO) 0.3 X10'3 (0-0.9); EOSINOPHILS % (AUTO) 4.2 % (0-6); HEMATOCRIT 32.4 % (42.0-52.0); HEMOGLOBIN 10.8 g/dl (14.0-17.9); LYMPHOCYTES # (AUTO) 1.8 X10'3 (1.1-4.8); LYMPHOCYTES % (AUTO) 25.3 % (21-51); MEAN CORPUSCULAR HEMOGLOBIN 28.8 PG (27.0-31.0); MEAN CORPUSCULAR HGB CONC 33.2 g/dL (33.0-36.5); MEAN CORPUSCULAR VOLUME 86.6 FL (78-98); MEAN PLATELET VOLUME 6.5 FL (7.4-10.4); MONOCYTES # (AUTO) 1.4 X10'3 (0-0.9); MONOCYTES % (AUTO) 19.1 % (2-12); NEUTROPHILS # (AUTO) 3.6 X10'3 (1.8-7.7); NEUTROPHILS % (AUTO) 50.8 % (42-75); PLATELET COUNT 214 X10'3 (140-440); RED BLOOD COUNT 3.74 X10'6 (4.70-6.10); RED CELL DISTRIBUTION WIDTH 19.5 % (11.5-14.5); WHITE BLOOD COUNT 7.1 X10'3 (4.5-11.0)
[2023-06-03 02:16] LABS: ALANINE AMINOTRANSFERASE 39 U/L (12-78); ALBUMIN 3.7 G/DL (3.4-5.0); ALBUMIN/GLOBULIN RATIO 0.9 (1.1-1.5); ALKALINE PHOSPHATASE 68 IU/L (46-116); ANION GAP 6 (8-16); ASPARTATE AMINO TRANSFERASE 26 U/L (10-37); BILIRUBIN,TOTAL 0.4 MG/DL (0.1-1.0); BLOOD UREA NITROGEN 24 MG/DL (7-18); BUN/CREATININE RATIO 18.3 (10.0-20.0); CALCIUM 9.1 MG/DL (8.5-10.1); CHLORIDE 100 MMOL/L (99-107); CREATININE 1.31 MG/DL (0.60-1.10); GLUCOSE 117 MG/DL (70-104); POTASSIUM 3.8 MMOL/L (3.5-5.1); SODIUM 135 MMOL/L (135-145); TOTAL CARBON DIOXIDE 29.1 MMOL/L (24-32); TOTAL PROTEIN 7.7 G/DL (6.4-8.2); eCRCL 57 ML/MIN; eGFR 59 ML/MIN
[2023-06-03 02:18] VITALS: TEMP 98.5
[2023-06-03 02:22] LABS: PRO BRAIN NATRIURETIC PEPTIDE 144 PG/ML (0-125)
[2023-06-03] MEDS ORDERED: ASPI-1265 PO (02:39)
[2023-06-03] MEDS ORDERED: CYCL-394 PO (02:47)
[2023-06-03] MEDS ORDERED: CARV6.253 PO (02:47)
[2023-06-03] MEDS ORDERED: OMEP40CA21 PO (02:47)
[2023-06-03] MEDS ORDERED: FURO-150 PO (02:47)
[2023-06-03] MEDS ORDERED: DULO-31 PO (02:47)
[2023-06-03] MEDS ORDERED: EMPA10TA PO (02:47)
[2023-06-03 02:53] LABS: D-DIMER 0.45 MG/L FEU (0-0.50)
[2023-06-03 02:59] LABS: ANISOCYTOSIS 2+; PLATELET ESTIMATE NORMAL; POLYCHROMASIA 1+; STOMATOCYTES FEW; TEAR DROP CELLS 1+; TOTAL CELLS COUNTED 100
[2023-06-03 05:00] VITALS: BP 160/73; PULSE 84; RESP 18; O2SAT 96
== END 2023-06-03 06:40 | disposition home or self-care (01) ==
LOC: ER 01:42
DX: R07.89 Other chest pain (principal); I83.013 Varicose veins of right lower extremity with ulcer of ankle; I83.023 Varicose veins of left lower extremity with ulcer of ankle; I10 Essential (primary) hypertension; J44.9 Chronic obstructive pulmonary disease, unspecified; E03.9 Hypothyroidism, unspecified; Z72.89 Other problems related to lifestyle; Z90.49 Acquired absence of other specified parts of digestive tract; Z79.82 Long term (current) use of aspirin; Z79.899 Other long term (current) drug therapy; Z79.01 Long term (current) use of anticoagulants
CPT/HCPCS: 36415; 71045; 80053; 83880; 84484; 85007; 85025; 85379; 93005; 99285

== ENCOUNTER 2023-06-03 16:26 | Inpatient (IN) | payer MEDICAID ==
[~2023-06-03] VITALS: Ht 160 cm; Wt 96.3 kg
[~2023-06-03 16:26] MED LIST changes: +ASPI-1265 PO; +CARV6.253 PO; +CYCL-394 PO; +DULO-31 PO; +EMPA10TA PO; +FURO-150 PO; +OMEP40CA21 PO
[2023-06-03 17:00] LABS: BASOPHILS % (AUTO) 0.5 % (0-1); EOSINOPHILS # (AUTO) 0.3 X10'3 (0-0.9); EOSINOPHILS % (AUTO) 4.6 % (0-6); HEMOGLOBIN 10.4 g/dl (14.0-17.9); LYMPHOCYTES # (AUTO) 1.7 X10'3 (1.1-4.8); LYMPHOCYTES % (AUTO) 27.2 % (21-51); MEAN CORPUSCULAR HEMOGLOBIN 28.3 PG (27.0-31.0); MEAN CORPUSCULAR HGB CONC 32.6 g/dL (33.0-36.5); MEAN CORPUSCULAR VOLUME 86.8 FL (78-98); MEAN PLATELET VOLUME 6.6 FL (7.4-10.4); MONOCYTES # (AUTO) 1.2 X10'3 (0-0.9); NEUTROPHILS # (AUTO) 3.1 X10'3 (1.8-7.7); NEUTROPHILS % (AUTO) 48.7 % (42-75); PLATELET COUNT 210 X10'3 (140-440); RED BLOOD COUNT 3.68 X10'6 (4.70-6.10); RED CELL DISTRIBUTION WIDTH 19.8 % (11.5-14.5); WHITE BLOOD COUNT 6.3 X10'3 (4.5-11.0)
[2023-06-03 17:11] LABS: ALANINE AMINOTRANSFERASE 39 U/L (12-78); ALBUMIN 3.9 G/DL (3.4-5.0); ALBUMIN/GLOBULIN RATIO 0.9 (1.1-1.5); ALKALINE PHOSPHATASE 66 IU/L (46-116); ANION GAP 7 (8-16); ASPARTATE AMINO TRANSFERASE 25 U/L (10-37); BILIRUBIN,TOTAL 0.4 MG/DL (0.1-1.0); BLOOD UREA NITROGEN 23 MG/DL (7-18); BUN/CREATININE RATIO 23.7 (10.0-20.0); CHLORIDE 101 MMOL/L (99-107); CREATININE 0.97 MG/DL (0.60-1.10); GLUCOSE 103 MG/DL (70-104); POTASSIUM 3.9 MMOL/L (3.5-5.1); SODIUM 136 MMOL/L (135-145); TOTAL CARBON DIOXIDE 28.4 MMOL/L (24-32); TOTAL PROTEIN 8.1 G/DL (6.4-8.2); eGFR 83 ML/MIN
[2023-06-03 17:17] LABS: PRO BRAIN NATRIURETIC PEPTIDE 135 PG/ML (0-125)
[2023-06-03] MEDS ORDERED: magnesium Cl slow-release 64mg tablet PO PRN (18:10)
[2023-06-03] MEDS ORDERED: magnesium hydroxide 30ml (MOM) UD suspension PO PRN (18:10)
[2023-06-03] MEDS ORDERED: acetaminophen 325mg tablet PO PRN (18:10)
[2023-06-03] MEDS ORDERED: magnesium 4gm in 100ml NS 100 ML IV PRN (18:10)
[2023-06-03] MEDS ORDERED: ondansetron/PF 4mg/2ml inj IV PRN (18:10)
[2023-06-03] MEDS ORDERED: HYDROcodone/acetaminophen 5mg/325mg tablet PO PRN (18:10)
[2023-06-03] MEDS ORDERED: potassium Cl 40MEQ/1/2NS 520ml 520 ML IV PRN (18:10)
[2023-06-03] MEDS ORDERED: potassium Cl 20 mEq SR tablet PO PRN ×2 (18:10)
[2023-06-03] MEDS ORDERED: morphine 2 MG/ML inj. syringe IV PRN (18:10)
[2023-06-03] MEDS ORDERED: mag hydrox/Alum hydrox/simeth 30ml oral suspension PO PRN (18:10)
[2023-06-03] MEDS ORDERED: magnesium 2GM in 50ml NS 50 ML IV PRN (18:10)
[2023-06-03] MEDS ORDERED: HYDROcodone/acetaminophen 10/325mg tab PO PRN (18:10)
[2023-06-03] MEDS ORDERED: aspirin 325mg tablet PO ONE (18:30)
[2023-06-03] MEDS: nitroGLYCERIN 0.1mg/hour patch TD SCH (19:00)
[2023-06-03] MEDS: morphine 2 MG/ML inj. syringe IV PRN (19:26)
[2023-06-03] MEDS: K and/or MAG REPLACEMENT MC SCH (20:00)
[2023-06-03] MEDS: docusate sod 100mg capsule PO SCH (22:15)
[2023-06-03 23:55] VITALS: BP 102/63; PULSE 107; RESP 14; TEMP 100.9; O2SAT 96
[2023-06-04] VITALS (9 sets, daily range): BP systolic 101–128; BP diastolic 62–77; PULSE 94–114; RESP 14–19; TEMP 97.7–98.4; O2SAT 96–98
[2023-06-04] MEDS: morphine 2 MG/ML inj. syringe IV PRN ×3 (00:14→20:46)
[2023-06-04] MEDS: K and/or MAG REPLACEMENT MC SCH ×2 (07:10→20:00)
[2023-06-04 07:53] LABS: CHOL/HDL RATIO 3.1 (0.00-4.99); CHOLESTEROL 100 MG/DL (0-200); HDL CHOLESTEROL 32 MG/DL (35-60); LDL CHOLESTEROL 49 MG/DL (50-100); MAGNESIUM 2.1 MG/DL (1.5-2.4); TRIGLYCERIDES 148 MG/DL (20-135)
[2023-06-04] MEDS: nitroGLYCERIN 0.1mg/hour patch TD SCH ×2 (08:00→17:35)
[2023-06-04] MEDS: docusate sod 100mg capsule PO SCH ×2 (08:00→20:00)
[2023-06-04 10:05] LABS: BASOPHILS # (AUTO) 0.1 X10'3 (0-0.2); BASOPHILS % (AUTO) 0.8 % (0-1); EOSINOPHILS # (AUTO) 0.3 X10'3 (0-0.9); EOSINOPHILS % (AUTO) 3.6 % (0-6); HEMATOCRIT 30.7 % (42.0-52.0); HEMOGLOBIN 10.1 g/dl (14.0-17.9); LYMPHOCYTES # (AUTO) 1.8 X10'3 (1.1-4.8); LYMPHOCYTES % (AUTO) 23.1 % (21-51); MEAN CORPUSCULAR HEMOGLOBIN 28.7 PG (27.0-31.0); MEAN CORPUSCULAR HGB CONC 32.9 g/dL (33.0-36.5); MEAN CORPUSCULAR VOLUME 87.1 FL (78-98); MEAN PLATELET VOLUME 7.1 FL (7.4-10.4); MONOCYTES # (AUTO) 1.4 X10'3 (0-0.9); MONOCYTES % (AUTO) 17.4 % (2-12); NEUTROPHILS # (AUTO) 4.3 X10'3 (1.8-7.7); NEUTROPHILS % (AUTO) 55.1 % (42-75); PLATELET COUNT 215 X10'3 (140-440); RED BLOOD COUNT 3.52 X10'6 (4.70-6.10); RED CELL DISTRIBUTION WIDTH 19.4 % (11.5-14.5); WHITE BLOOD COUNT 7.8 X10'3 (4.5-11.0)
[2023-06-04 10:18] LABS: ALANINE AMINOTRANSFERASE 34 U/L (12-78); ALBUMIN 3.8 G/DL (3.4-5.0); ALKALINE PHOSPHATASE 48 IU/L (46-116); ANION GAP 11 (8-16); ASPARTATE AMINO TRANSFERASE 25 U/L (10-37); BILIRUBIN,TOTAL 0.5 MG/DL (0.1-1.0); BLOOD UREA NITROGEN 25 MG/DL (7-18); BUN/CREATININE RATIO 29.8 (10.0-20.0); CALCIUM 9.1 MG/DL (8.5-10.1); CHLORIDE 104 MMOL/L (99-107); CREATININE 0.84 MG/DL (0.60-1.10); GLUCOSE 106 MG/DL (70-104); SODIUM 138 MMOL/L (135-145); TOTAL CARBON DIOXIDE 23.5 MMOL/L (24-32); TOTAL PROTEIN 7.6 G/DL (6.4-8.2); eCRCL 88 ML/MIN; eGFR > 90 ML/MIN
[2023-06-04 10:47] LABS: ANISOCYTOSIS 2+; PLATELET ESTIMATE NORMAL; POLYCHROMASIA FEW; TEAR DROP CELLS FEW; TOTAL CELLS COUNTED 100
[2023-06-04] MEDS: acetaminophen 325mg tablet PO PRN (13:18)
[2023-06-04] MEDS: furosemide 40mg/4ml inj IV SCH (20:47)
[2023-06-04] MEDS ORDERED: ipratropium/albuterol 3ml nebule NEB PRN (21:25)
[2023-06-04] MEDS ORDERED: albuterol 2.5 MG/3 ML nebule NEB PRN (21:25)
[2023-06-04] MEDS ORDERED: cyclobenzaprine 10mg tablet PO PRN ×2 (22:55→23:20)
[2023-06-05] VITALS (14 sets, daily range): BP systolic 104–147; BP diastolic 56–82; PULSE 90–129; RESP 12–18; TEMP 98.1–98.6; O2SAT 96–100
[2023-06-05] MEDS: acetaminophen 325mg tablet PO PRN (01:04)
[2023-06-05] MEDS: K and/or MAG REPLACEMENT MC SCH (06:45)
[2023-06-05] MEDS ORDERED: iohexol 350 MG/ML 50ML vial IV ONE (07:17)
[2023-06-05] MEDS ORDERED: heparin 1,000unit/ml 10ml vial 10 ML ONE (07:17)
[2023-06-05] MEDS ORDERED: fentaNYL/PF 50MCG/1 ML 2ML syringe ONE (07:17)
[2023-06-05] MEDS ORDERED: verapamil 2.5 mg/ml inj IV ONE (07:17)
[2023-06-05] MEDS ORDERED: LIDOcaine 1% (10mg/ml) 2ml vial ONE (07:17)
[2023-06-05] MEDS ORDERED: midazolam 1 mg/ML 2ml injection ONE (07:17)
[2023-06-05] MEDS ORDERED: iohexol 350MG/ML 100ml bottle IV ONE ×2 (07:18→08:31)
[2023-06-05] MEDS ORDERED: nitroGLYCERIN 500mcg/5mL D5W 5 ML IV ONE (07:18)
[2023-06-05 07:36] LABS: BASOPHILS % (AUTO) 0.4 % (0-1); EOSINOPHILS # (AUTO) 0.3 X10'3 (0-0.9); EOSINOPHILS % (AUTO) 4.9 % (0-6); HEMOGLOBIN 10.2 g/dl (14.0-17.9); LYMPHOCYTES # (AUTO) 1.6 X10'3 (1.1-4.8); LYMPHOCYTES % (AUTO) 27.2 % (21-51); MEAN CORPUSCULAR HEMOGLOBIN 28.3 PG (27.0-31.0); MEAN CORPUSCULAR HGB CONC 32.9 g/dL (33.0-36.5); MEAN CORPUSCULAR VOLUME 86.1 FL (78-98); MEAN PLATELET VOLUME 6.5 FL (7.4-10.4); MONOCYTES # (AUTO) 1.1 X10'3 (0-0.9); MONOCYTES % (AUTO) 18.9 % (2-12); NEUTROPHILS # (AUTO) 2.9 X10'3 (1.8-7.7); NEUTROPHILS % (AUTO) 48.6 % (42-75); PLATELET COUNT 212 X10'3 (140-440); RED CELL DISTRIBUTION WIDTH 19.1 % (11.5-14.5)
[2023-06-05] MEDS: docusate sod 100mg capsule PO SCH (08:00)
[2023-06-05] MEDS: furosemide 40mg/4ml inj IV SCH (08:00)
[2023-06-05] MEDS: nitroGLYCERIN 0.1mg/hour patch TD SCH (08:00)
[2023-06-05] MEDS ORDERED: LIDOcaine 1% (10mg/ml)w/preservative inj. 20ml MDV ONE (08:07)
[2023-06-05] MEDS ORDERED: furosemide 40mg/4ml inj ONE (08:52)
[2023-06-05] MEDS ORDERED: non-formulary drug (Albuterol Sulfate (Ventolin Hfa) 2 PUFFS) IH PRN (09:25)
[2023-06-05] MEDS ORDERED: non-formulary drug (Ibuprofen 200 MG) PO PRN (09:25)
[2023-06-05 09:33] LABS: ALANINE AMINOTRANSFERASE 29 U/L (12-78); ALBUMIN 3.7 G/DL (3.4-5.0); ALBUMIN/GLOBULIN RATIO 0.9 (1.1-1.5); ALKALINE PHOSPHATASE 50 IU/L (46-116); ANION GAP 10 (8-16); ASPARTATE AMINO TRANSFERASE 22 U/L (10-37); BILIRUBIN,TOTAL 0.5 MG/DL (0.1-1.0); BLOOD UREA NITROGEN 19 MG/DL (7-18); BUN/CREATININE RATIO 24.1 (10.0-20.0); CHLORIDE 101 MMOL/L (99-107); CREATININE 0.79 MG/DL (0.60-1.10); GLUCOSE 110 MG/DL (70-104); MAGNESIUM 2.2 MG/DL (1.5-2.4); POTASSIUM 3.7 MMOL/L (3.5-5.1); SODIUM 136 MMOL/L (135-145); TOTAL CARBON DIOXIDE 25.1 MMOL/L (24-32); TOTAL PROTEIN 7.7 G/DL (6.4-8.2); eCRCL 94 ML/MIN; eGFR > 90 ML/MIN
[2023-06-05 09:44] LABS: THYROID STIMULATING HORMONE 2.32 ulU/ml (0.34-4.50)
[2023-06-05] MEDS ORDERED: ACET120S35 RC (16:06)
[2023-06-05] MEDS ORDERED: apixaban 5mg tablet PO SCH (20:00)
[2023-06-05] MEDS ORDERED: carvedilol 6.25mg tablet PO SCH (20:00)
[2023-06-05] MEDS ORDERED: gabapentin 100mg capsule PO SCH (20:00)
[2023-06-05] MEDS ORDERED: cyclobenzaprine 10mg tablet PO SCH (21:00)
[2023-06-06] MEDS ORDERED: levoTHYROXINE 25mcg tablet PO SCH (07:00)
[2023-06-06] MEDS ORDERED: aspirin 81mg tab.chew PO SCH (08:00)
[2023-06-06] MEDS ORDERED: ipratropium 0.5 MG/2.5ML nebule NEB SCH (08:00)
[2023-06-06] MEDS ORDERED: non-formulary drug (Omeprazole (Prilosec) 1 CAP) PO SCH (08:00)
[2023-06-06] MEDS ORDERED: duloxetine 30mg CAPSULE.DR PO SCH (08:00)
[2023-06-06] MEDS ORDERED: EMPAGLIFLOZIN 10 MG TABLET PO SCH (08:00)
[2023-06-06] MEDS ORDERED: pantoprazole 40mg Tablet.DR PO SCH (08:00)
[2023-06-06] MEDS ORDERED: DAPSONE 100 MG PO SCH (08:00)
[2023-06-06] MEDS ORDERED: furosemide 20MG tablet PO SCH (08:00)
[2023-06-06] MEDS ORDERED: metoprolol tartrate 25mg tablet PO SCH (08:00)
== END 2023-06-05 18:30 | DRG 192 ==
LOC: ER 16:27 → ED HOLD 18:09 → PCU 3S 22:50
PROVIDERS: ADMIT Internal Medicine; ATTEND Internal Medicine
PROC: 4A023N7 Measurement of Cardiac Sampling and Pressure, Left Heart, Percutaneous Approach (ICD-10-PCS; principal; 2023-06-05)
PROC: B2111ZZ Fluoroscopy of Multiple Coronary Arteries using Low Osmolar Contrast (ICD-10-PCS; 2023-06-05)
PROC: B2151ZZ Fluoroscopy of Left Heart using Low Osmolar Contrast (ICD-10-PCS; 2023-06-05)
DX: R07.89 Other chest pain (principal); I11.0 Hypertensive heart disease with heart failure; I50.32 Chronic diastolic (congestive) heart failure; I82.509 Chronic embolism and thrombosis of unspecified deep veins of unspecified lower extremity; I20.0 Unstable angina; E03.9 Hypothyroidism, unspecified; E66.9 Obesity, unspecified; L03.115 Cellulitis of right lower limb; I87.8 Other specified disorders of veins; L03.116 Cellulitis of left lower limb; L97.929 Non-pressure chronic ulcer of unspecified part of left lower leg with unspecified severity; L97.919 Non-pressure chronic ulcer of unspecified part of right lower leg with unspecified severity; J44.9 Chronic obstructive pulmonary disease, unspecified; Z82.49 Family history of ischemic heart disease and other diseases of the circulatory system; Z90.49 Acquired absence of other specified parts of digestive tract; Z83.3 Family history of diabetes mellitus; Z79.899 Other long term (current) drug therapy; Z79.82 Long term (current) use of aspirin; Z87.891 Personal history of nicotine dependence; Z68.37 Body mass index [BMI] 37.0-37.9, adult; Z79.01 Long term (current) use of anticoagulants
CPT/HCPCS: 36415; 71045; 76937; 80053; 80061; 83735; 83880; 84443; 84484; 85007; 85025; 87081; 93005; 93458; 94760; 99152; 99153; 99285; A4649; A6196; A6213; A6223; A6250; A6258; A6402; A6446; A6449; C1751; G0378; J1644; J1940; J2250; J2270; J3010; J3490; J7030; Q9967

== ENCOUNTER 2023-08-05 16:16 | Inpatient (IN) | payer MEDICAID ==
[~2023-08-05] VITALS: Ht 160 cm; Wt 93.2 kg
[2023-08-05 17:55] LABS: BASOPHILS % (AUTO) 0.4 % (0-1); EOSINOPHILS # (AUTO) 0.1 X10'3 (0-0.9); EOSINOPHILS % (AUTO) 1.2 % (0-6); HEMATOCRIT 31.8 % (42.0-52.0); HEMOGLOBIN 9.9 g/dl (14.0-17.9); LYMPHOCYTES # (AUTO) 1.6 X10'3 (1.1-4.8); LYMPHOCYTES % (AUTO) 13.8 % (21-51); MEAN CORPUSCULAR HEMOGLOBIN 25.4 PG (27.0-31.0); MEAN CORPUSCULAR HGB CONC 31.3 g/dL (33.0-36.5); MEAN CORPUSCULAR VOLUME 81.3 FL (78-98); MEAN PLATELET VOLUME 6.4 FL (7.4-10.4); MONOCYTES # (AUTO) 1.5 X10'3 (0-0.9); MONOCYTES % (AUTO) 12.6 % (2-12); NEUTROPHILS # (AUTO) 8.3 X10'3 (1.8-7.7); PLATELET COUNT 363 X10'3 (140-440); RED BLOOD COUNT 3.91 X10'6 (4.70-6.10); RED CELL DISTRIBUTION WIDTH 21.4 % (11.5-14.5); WHITE BLOOD COUNT 11.5 X10'3 (4.5-11.0)
[2023-08-05 18:07] LABS: ALBUMIN 3.5 G/DL (3.4-5.0); ANION GAP 10 (8-16); BLOOD UREA NITROGEN 10 MG/DL (7-18); BUN/CREATININE RATIO 13.9 (10.0-20.0); CHLORIDE 102 MMOL/L (99-107); CREATININE 0.72 MG/DL (0.60-1.10); GLUCOSE 105 MG/DL (70-104); MAGNESIUM 2.4 MG/DL (1.5-2.4); POTASSIUM 4.1 MMOL/L (3.5-5.1); SODIUM 137 MMOL/L (135-145); TOTAL CARBON DIOXIDE 24.8 MMOL/L (24-32); eCRCL 103 ML/MIN; eGFR > 90 ML/MIN
[2023-08-05 18:40] LABS: ANISOCYTOSIS 3+; PLATELET ESTIMATE NORMAL; POLYCHROMASIA FEW; STOMATOCYTES 1+
[2023-08-05] MEDS: morphine 4 MG/ML inj SYRINge IV ONE (19:22)
[2023-08-05] MEDS: normal saline 1000ml 1,000 ML IV ONE (19:26)
[2023-08-05] MEDS: vancomycin/NS 1 GM ADD-VANTAGE 250 ML IV ONE (19:32)
[2023-08-05] MEDS: cefepime 2g/NS 100ml ADVANTAGE 100 ML IV ONE (20:54)
[2023-08-05] MEDS: piperacillin/tazo 4.5gm/100ml 100 ML IV SCH (21:09)
[2023-08-05] MEDS ORDERED: SILD50TA PO (21:44)
[2023-08-05] MEDS ORDERED: POTA-205 PO (21:44)
[2023-08-05] MEDS ORDERED: HYDR-3965 PO (21:44)
[2023-08-05] MEDS ORDERED: ATOR10TA PO (21:44)
[2023-08-05] MEDS ORDERED: magnesium Cl slow-release 64mg tablet PO PRN (22:20)
[2023-08-05] MEDS ORDERED: potassium Cl 20 mEq SR tablet PO PRN ×2 (22:20)
[2023-08-05] MEDS ORDERED: magnesium hydroxide 30ml (MOM) UD suspension PO PRN (22:20)
[2023-08-05] MEDS ORDERED: magnesium 2GM in 50ml NS 50 ML IV PRN (22:20)
[2023-08-05] MEDS ORDERED: mag hydrox/Alum hydrox/simeth 30ml oral suspension PO PRN (22:20)
[2023-08-05] MEDS ORDERED: acetaminophen 325mg tablet PO PRN (22:20)
[2023-08-05] MEDS ORDERED: magnesium 4gm in 100ml NS 100 ML IV PRN (22:20)
[2023-08-05] MEDS ORDERED: potassium Cl 40MEQ/1/2NS 520ml 520 ML IV PRN (22:20)
[2023-08-05] MEDS: morphine 2 MG/ML inj. syringe IV PRN (23:35)
[2023-08-05] MEDS: pantoprazole 40 MG vial IV ONE (23:44)
[2023-08-05] MEDS ORDERED: albuterol 2.5 MG/3 ML nebule NEB PRN (23:55)
[2023-08-06] VITALS (7 sets, daily range): BP systolic 116–138; BP diastolic 68–80; PULSE 86–121; RESP 15–18; TEMP 98.1–99; O2SAT 95–98
[2023-08-06 00:36] LABS: BILIRUBIN,URINE NEGATIVE (Neg); CLARITY,URINE CLEAR (Clear); COLOR,URINE YELLOW (Yellow); GLUCOSE, URINE 250 mg/dl (Neg); KETONES,URINE NEGATIVE (Neg); LEUKOCYTE ESTERASE ,URINE NEGATIVE (Neg); NITRITES, URINE NEGATIVE (Neg); OCCULT BLOOD,URINE MODERATE (Neg); PH,URINE 5.5 (4.8-8.0); PROTEIN,URINE NEGATIVE (Neg); UROBILINOGEN,URINE 0.2 E.U/dL (0.2-1.0)
[2023-08-06 00:44] LABS: UA COLLECTION TYPE CLN CATCH MIDSTREAM
[2023-08-06 00:47] LABS: BACTERIA,URINE NONE SEEN /HPF (Neg); MUCUS STRANDS NONE SEEN /LPF (Neg); SQUAMOUS EPITHELIAL CELL,UR NONE SEEN /LPF (FEW); WBC,URINE 0-4 /HPF (0-4)
[2023-08-06] MEDS: levoTHYROXINE 25mcg tablet PO SCH (07:57)
[2023-08-06] MEDS: carvedilol 6.25mg tablet PO SCH (07:57)
[2023-08-06] MEDS: pantoprazole 40mg Tablet.DR PO SCH (07:57)
[2023-08-06] MEDS: apixaban 5mg tablet PO SCH (07:58)
[2023-08-06] MEDS: EMPAGLIFLOZIN 10 MG TABLET PO SCH (07:58)
[2023-08-06] MEDS: gabapentin 300mg capsule PO SCH (07:59)
[2023-08-06] MEDS: atorvastatin 10mg tablet PO SCH (07:59)
[2023-08-06] MEDS: furosemide 20MG tablet PO SCH (07:59)
[2023-08-06] MEDS: K and/or MAG REPLACEMENT MC SCH (08:00)
[2023-08-06] MEDS ORDERED: cefepime 2g/NS 100ml ADVANTAGE 100 ML IV SCH (08:00)
[2023-08-06 08:31] LABS: BASOPHILS # (AUTO) 0.1 X10'3 (0-0.2); BASOPHILS % (AUTO) 0.6 % (0-1); EOSINOPHILS # (AUTO) 0.2 X10'3 (0-0.9); EOSINOPHILS % (AUTO) 2.2 % (0-6); HEMATOCRIT 29.7 % (42.0-52.0); HEMOGLOBIN 9.3 g/dl (14.0-17.9); LYMPHOCYTES # (AUTO) 1.1 X10'3 (1.1-4.8); LYMPHOCYTES % (AUTO) 12.1 % (21-51); MEAN CORPUSCULAR HEMOGLOBIN 25.9 PG (27.0-31.0); MEAN CORPUSCULAR HGB CONC 31.3 g/dL (33.0-36.5); MEAN CORPUSCULAR VOLUME 82.6 FL (78-98); MEAN PLATELET VOLUME 6.4 FL (7.4-10.4); MONOCYTES # (AUTO) 1.2 X10'3 (0-0.9); NEUTROPHILS # (AUTO) 6.8 X10'3 (1.8-7.7); NEUTROPHILS % (AUTO) 72.1 % (42-75); PLATELET COUNT 332 X10'3 (140-440); RED BLOOD COUNT 3.59 X10'6 (4.70-6.10); RED CELL DISTRIBUTION WIDTH 21.6 % (11.5-14.5); WHITE BLOOD COUNT 9.5 X10'3 (4.5-11.0)
[2023-08-06] MEDS: duloxetine 30mg CAPSULE.DR PO SCH (08:39)
[2023-08-06] MEDS: cefepime 2g/NS 100ml ADVANTAGE 100 ML IV SCH (08:40)
[2023-08-06] MEDS: docusate sod 100mg capsule PO SCH (08:40)
[2023-08-06 09:13] LABS: ANION GAP 11 (8-16); BLOOD UREA NITROGEN 10 MG/DL (7-18); C-REACTIVE PROTEIN 5.68 MG/DL (0.0-0.5); CALCIUM 8.8 MG/DL (8.5-10.1); CHLORIDE 106 MMOL/L (99-107); CREATININE 0.77 MG/DL (0.60-1.10); GLUCOSE 106 MG/DL (70-104); POTASSIUM 4.1 MMOL/L (3.5-5.1); SODIUM 140 MMOL/L (135-145); TOTAL CARBON DIOXIDE 23.4 MMOL/L (24-32); eCRCL 96 ML/MIN; eGFR > 90 ML/MIN
[2023-08-06 09:26] LABS: FERRITIN 40 NG/ML (26-388)
[2023-08-06 09:44] LABS: IRON 23 UG/DL (53-167)
[2023-08-06 13:31] LABS: % IRON SATURATION 6 % (11-46); TOTAL IRON BINDING CAPACITY 405 UG/DL (259-388)
[2023-08-06] MEDS: HYDROcodone/acetaminophen 5mg/325mg tablet PO PRN (19:11)
[2023-08-06] MEDS: cyclobenzaprine 10mg tablet PO SCH (21:28)
[2023-08-07] VITALS (7 sets, daily range): BP systolic 101–122; BP diastolic 54–78; PULSE 86–108; RESP 15–18; TEMP 97.8–98.8; O2SAT 95–99
[2023-08-07 06:56] LABS: BASOPHILS % (AUTO) 0.7 % (0-1); EOSINOPHILS # (AUTO) 0.3 X10'3 (0-0.9); EOSINOPHILS % (AUTO) 4.6 % (0-6); HEMATOCRIT 29.1 % (42.0-52.0); HEMOGLOBIN 9.3 g/dl (14.0-17.9); LYMPHOCYTES # (AUTO) 1.4 X10'3 (1.1-4.8); LYMPHOCYTES % (AUTO) 22.1 % (21-51); MEAN CORPUSCULAR HEMOGLOBIN 26.3 PG (27.0-31.0); MEAN CORPUSCULAR HGB CONC 32.1 g/dL (33.0-36.5); MEAN PLATELET VOLUME 6.5 FL (7.4-10.4); MONOCYTES # (AUTO) 1.3 X10'3 (0-0.9); MONOCYTES % (AUTO) 20.3 % (2-12); NEUTROPHILS # (AUTO) 3.4 X10'3 (1.8-7.7); NEUTROPHILS % (AUTO) 52.3 % (42-75); PLATELET COUNT 307 X10'3 (140-440); RED BLOOD COUNT 3.54 X10'6 (4.70-6.10); RED CELL DISTRIBUTION WIDTH 21.3 % (11.5-14.5); WHITE BLOOD COUNT 6.5 X10'3 (4.5-11.0)
[2023-08-07 07:07] LABS: ALBUMIN 2.9 G/DL (3.4-5.0); BLOOD UREA NITROGEN 15 MG/DL (7-18); BUN/CREATININE RATIO 19.7 (10.0-20.0); CREATININE 0.76 MG/DL (0.60-1.10); GLUCOSE 110 MG/DL (70-104); SODIUM 141 MMOL/L (135-145); eCRCL 98 ML/MIN; eGFR > 90 ML/MIN
[2023-08-07 07:37] LABS: ANION GAP 6 (8-16); CHLORIDE 106 MMOL/L (99-107)
[2023-08-07 09:05] LABS: ANISOCYTOSIS 3+; PLATELET ESTIMATE NORMAL; TOTAL CELLS COUNTED 100
[2023-08-07] MEDS: ceftolozone/tazobactam inj. 1.5 GM in normal saline 100ml IV soln 100 ML IV SCH (16:23)
[2023-08-07] MEDS: ondansetron/PF 4mg/2ml inj IV PRN (23:11)
[2023-08-08] VITALS (7 sets, daily range): BP systolic 106–142; BP diastolic 56–75; PULSE 78–112; RESP 14–17; TEMP 97.4–98.9; O2SAT 93–98
[2023-08-08 06:46] LABS: BASOPHILS % (AUTO) 0.7 % (0-1); EOSINOPHILS # (AUTO) 0.3 X10'3 (0-0.9); EOSINOPHILS % (AUTO) 5.2 % (0-6); HEMATOCRIT 31.1 % (42.0-52.0); HEMOGLOBIN 9.8 g/dl (14.0-17.9); LYMPHOCYTES # (AUTO) 1.7 X10'3 (1.1-4.8); LYMPHOCYTES % (AUTO) 26.8 % (21-51); MEAN CORPUSCULAR HEMOGLOBIN 25.9 PG (27.0-31.0); MEAN CORPUSCULAR HGB CONC 31.4 g/dL (33.0-36.5); MEAN CORPUSCULAR VOLUME 82.4 FL (78-98); MEAN PLATELET VOLUME 6.6 FL (7.4-10.4); MONOCYTES # (AUTO) 1.1 X10'3 (0-0.9); MONOCYTES % (AUTO) 16.6 % (2-12); NEUTROPHILS # (AUTO) 3.3 X10'3 (1.8-7.7); NEUTROPHILS % (AUTO) 50.7 % (42-75); PLATELET COUNT 348 X10'3 (140-440); RED BLOOD COUNT 3.78 X10'6 (4.70-6.10); RED CELL DISTRIBUTION WIDTH 20.8 % (11.5-14.5); WHITE BLOOD COUNT 6.5 X10'3 (4.5-11.0)
[2023-08-08 07:17] LABS: ALBUMIN 3.2 G/DL (3.4-5.0); ANION GAP 9 (8-16); BLOOD UREA NITROGEN 16 MG/DL (7-18); BUN/CREATININE RATIO 18.4 (10.0-20.0); CALCIUM 9.8 MG/DL (8.5-10.1); CHLORIDE 105 MMOL/L (99-107); CREATININE 0.87 MG/DL (0.60-1.10); GLUCOSE 137 MG/DL (70-104); SODIUM 141 MMOL/L (135-145); TOTAL CARBON DIOXIDE 27.3 MMOL/L (24-32); eCRCL 85 ML/MIN; eGFR > 90 ML/MIN
[2023-08-08] MEDS: HYDROcodone/acetaminophen 10/325mg tab PO PRN (20:00)
[2023-08-09 05:00] VITALS: BP 119/79; PULSE 80; RESP 17; TEMP 97.9; O2SAT 94
[2023-08-09 06:28] LABS: BASOPHILS # (AUTO) 0.1 X10'3 (0-0.2); BASOPHILS % (AUTO) 0.8 % (0-1); EOSINOPHILS # (AUTO) 0.3 X10'3 (0-0.9); EOSINOPHILS % (AUTO) 4.8 % (0-6); HEMATOCRIT 30.3 % (42.0-52.0); HEMOGLOBIN 9.6 g/dl (14.0-17.9); LYMPHOCYTES # (AUTO) 1.9 X10'3 (1.1-4.8); LYMPHOCYTES % (AUTO) 29.7 % (21-51); MEAN CORPUSCULAR HEMOGLOBIN 26.2 PG (27.0-31.0); MEAN CORPUSCULAR HGB CONC 31.8 g/dL (33.0-36.5); MEAN CORPUSCULAR VOLUME 82.4 FL (78-98); MEAN PLATELET VOLUME 6.5 FL (7.4-10.4); NEUTROPHILS # (AUTO) 3.2 X10'3 (1.8-7.7); NEUTROPHILS % (AUTO) 49.7 % (42-75); PLATELET COUNT 378 X10'3 (140-440); RED BLOOD COUNT 3.68 X10'6 (4.70-6.10); RED CELL DISTRIBUTION WIDTH 20.9 % (11.5-14.5); WHITE BLOOD COUNT 6.5 X10'3 (4.5-11.0)
[2023-08-09 06:32] LABS: ALBUMIN 3.1 G/DL (3.4-5.0); ANION GAP 4 (8-16); BLOOD UREA NITROGEN 16 MG/DL (7-18); BUN/CREATININE RATIO 21.1 (10.0-20.0); CHLORIDE 103 MMOL/L (99-107); CREATININE 0.76 MG/DL (0.60-1.10); GLUCOSE 105 MG/DL (70-104); SODIUM 137 MMOL/L (135-145); TOTAL CARBON DIOXIDE 30.4 MMOL/L (24-32); eCRCL 98 ML/MIN; eGFR > 90 ML/MIN
[2023-08-09 09:54] VITALS: RESP 16
[2023-08-09 10:00] VITALS: BP 116/67; PULSE 110; RESP 18; TEMP 97.3; O2SAT 96
[2023-08-09 12:00] LABS: HEMOGLOBIN A1C 5.5 % (4.5-6.2)
[2023-08-09] MEDS: normal saline 500ml IV soln 500 ML IV SCH (12:31)
[2023-08-09 18:00] VITALS: BP 122/68; PULSE 69; RESP 17; TEMP 98.6; O2SAT 97
[2023-08-09 20:00] VITALS: RESP 17; O2SAT 94
[2023-08-09 20:03] VITALS: PULSE 100; RESP 16; O2SAT 98
[2023-08-10] VITALS (7 sets, daily range): BP systolic 108–112; BP diastolic 42–67; PULSE 81–111; RESP 14–18; TEMP 97.9–98.1; O2SAT 96–97
[2023-08-10 07:25] LABS: ALBUMIN 3.4 G/DL (3.4-5.0); BASOPHILS # (AUTO) 0.1 X10'3 (0-0.2); BLOOD UREA NITROGEN 22 MG/DL (7-18); BUN/CREATININE RATIO 28.2 (10.0-20.0); CHLORIDE 107 MMOL/L (99-107); CREATININE 0.78 MG/DL (0.60-1.10); EOSINOPHILS # (AUTO) 0.3 X10'3 (0-0.9); EOSINOPHILS % (AUTO) 4.8 % (0-6); GLUCOSE 123 MG/DL (70-104); HEMATOCRIT 30.2 % (42.0-52.0); HEMOGLOBIN 9.8 g/dl (14.0-17.9); LYMPHOCYTES # (AUTO) 2.1 X10'3 (1.1-4.8); LYMPHOCYTES % (AUTO) 32.7 % (21-51); MEAN CORPUSCULAR HEMOGLOBIN 26.5 PG (27.0-31.0); MEAN CORPUSCULAR HGB CONC 32.3 g/dL (33.0-36.5); MEAN CORPUSCULAR VOLUME 82.2 FL (78-98); MEAN PLATELET VOLUME 6.8 FL (7.4-10.4); MONOCYTES # (AUTO) 1.1 X10'3 (0-0.9); MONOCYTES % (AUTO) 16.9 % (2-12); NEUTROPHILS # (AUTO) 2.9 X10'3 (1.8-7.7); NEUTROPHILS % (AUTO) 44.6 % (42-75); PLATELET COUNT 366 X10'3 (140-440); POTASSIUM 4.3 MMOL/L (3.5-5.1); RED BLOOD COUNT 3.68 X10'6 (4.70-6.10); RED CELL DISTRIBUTION WIDTH 20.7 % (11.5-14.5); SODIUM 142 MMOL/L (135-145); WHITE BLOOD COUNT 6.5 X10'3 (4.5-11.0); eCRCL 95 ML/MIN; eGFR > 90 ML/MIN
[2023-08-10 07:57] LABS: ANION GAP 5 (8-16); TOTAL CARBON DIOXIDE 30.2 MMOL/L (24-32)
[2023-08-11 06:00] VITALS: BP 122/67; PULSE 107; RESP 20; TEMP 97.3; O2SAT 97
[2023-08-11 08:00] VITALS: RESP 20; O2SAT 97
[2023-08-11 10:00] VITALS: BP 118/71; PULSE 114; RESP 18; TEMP 98.3; O2SAT 98
[2023-08-11] MEDS: morphine 2 MG/ML inj. syringe IV PRN (12:07)
[2023-08-11 15:45] VITALS: PULSE 99; RESP 17; O2SAT 96
== END 2023-08-11 16:45 | DRG 383 ==
LOC: ER 16:16 → ED HOLD 22:23 → EDBEDREQ 08-06 08:50 → ORTHO 4S 08-06 16:06
PROVIDERS: ADMIT Internal Medicine; ATTEND Internal Medicine
DX: L03.115 Cellulitis of right lower limb (principal); S81.801A Unspecified open wound, right lower leg, initial encounter; I87.2 Venous insufficiency (chronic) (peripheral); D64.9 Anemia, unspecified; E03.9 Hypothyroidism, unspecified; L03.116 Cellulitis of left lower limb; I10 Essential (primary) hypertension; J44.9 Chronic obstructive pulmonary disease, unspecified; E78.5 Hyperlipidemia, unspecified; Z16.24 Resistance to multiple antibiotics; G47.33 Obstructive sleep apnea (adult) (pediatric); S81.802A Unspecified open wound, left lower leg, initial encounter; X58.XXXA Exposure to other specified factors, initial encounter; K21.9 Gastro-esophageal reflux disease without esophagitis; Z90.49 Acquired absence of other specified parts of digestive tract; Z86.718 Personal history of other venous thrombosis and embolism; Z79.01 Long term (current) use of anticoagulants; Z79.899 Other long term (current) drug therapy; Z83.3 Family history of diabetes mellitus; Z87.891 Personal history of nicotine dependence; Y93.89 Activity, other specified; Y92.89 Other specified places as the place of occurrence of the external cause; Y99.8 Other external cause status
CPT/HCPCS: 36415; 71045; 73590; 80048; 81001; 82728; 83036; 83540; 83550; 83605; 83735; 84145; 84466; 85007; 85008; 85025; 85651; 86140; 87040; 93005; 93970; 94760; 99285; A6196; A6250; A6253; A6446; A6449; C9113; G0378; J0692; J0695; J2270; J2405; J2543; J3370; J3490; J7030; J7040

== ENCOUNTER 2023-11-04 04:17 | Inpatient (IN) | payer MEDICAID ==
[~2023-11-04] VITALS: Ht 162.6 cm; Wt 101.0 kg
[~2023-11-04 04:17] MED LIST changes: -ASPI-1265 PO; +ATOR10TA PO; -DAPS100T2 PO; +HYDR-3965 PO; -IBUP-1985 PO; -PANT-47 PO; +POTA-205 PO; +SILD50TA PO
[2023-11-04 05:07] LABS: ALANINE AMINOTRANSFERASE 34 U/L (12-78); ALBUMIN 3.5 G/DL (3.4-5.0); ALBUMIN/GLOBULIN RATIO 0.9 (1.1-1.5); ALKALINE PHOSPHATASE 61 IU/L (46-116); ANION GAP 12 (8-16); ASPARTATE AMINO TRANSFERASE 23 U/L (10-37); BILIRUBIN,TOTAL 0.4 MG/DL (0.1-1.0); BLOOD UREA NITROGEN 25 MG/DL (7-18); BUN/CREATININE RATIO 24.5 (10.0-20.0); CALCIUM 8.2 MG/DL (8.5-10.1); CHLORIDE 104 MMOL/L (99-107); CREATININE 1.02 MG/DL (0.60-1.10); GLUCOSE 266 MG/DL (70-104); POTASSIUM 3.6 MMOL/L (3.5-5.1); SODIUM 138 MMOL/L (135-145); TOTAL CARBON DIOXIDE 21.7 MMOL/L (24-32); TOTAL PROTEIN 7.2 G/DL (6.4-8.2); eCRCL 76 ML/MIN; eGFR 79 ML/MIN
[2023-11-04 05:14] LABS: PRO BRAIN NATRIURETIC PEPTIDE 1947 PG/ML (0-125)
[2023-11-04 06:13] LABS: BASOPHILS # (AUTO) 0.1 X10'3 (0-0.2); LYMPHOCYTES # (AUTO) 2.2 X10'3 (1.1-4.8)
[2023-11-04 06:14] LABS: BASOPHILS % (AUTO) 0.7 % (0-1); EOSINOPHILS # (AUTO) 0.2 X10'3 (0-0.9); EOSINOPHILS % (AUTO) 1.1 % (0-6); HEMOGLOBIN 10.3 g/dl (14.0-17.9); LYMPHOCYTES % (AUTO) 14.7 % (21-51); MEAN PLATELET VOLUME 7.1 FL (7.4-10.4); MONOCYTES # (AUTO) 1.8 X10'3 (0-0.9); MONOCYTES % (AUTO) 11.9 % (2-12); NEUTROPHILS # (AUTO) 10.7 X10'3 (1.8-7.7); NEUTROPHILS % (AUTO) 71.6 % (42-75); PLATELET COUNT 252 X10'3 (140-440); RED BLOOD COUNT 4.48 X10'6 (4.70-6.10); RED CELL DISTRIBUTION WIDTH 22.8 % (11.5-14.5); WHITE BLOOD COUNT 14.9 X10'3 (4.5-11.0)
[2023-11-04 06:38] LABS: HEMATOCRIT 33.8 % (42.0-52.0); MEAN CORPUSCULAR HEMOGLOBIN 23.6 PG (27.0-31.0); MEAN CORPUSCULAR HGB CONC 30.8 g/dL (33.0-36.5); MEAN CORPUSCULAR VOLUME 76.4 FL (78-98)
[2023-11-04 07:29] LABS: ANISOCYTOSIS 3+; MICROCYTOSIS 1+; PLATELET ESTIMATE NORMAL; TOTAL CELLS COUNTED 100
[2023-11-04] MEDS ORDERED: iohexol 350MG/ML 100ml bottle IV ONE (08:12)
[2023-11-04] MEDS ORDERED: heparin 25,000 UNIT/250ml bag 250 ML IV PRN (10:10)
[2023-11-04] MEDS: nitroGLYCERIN 1gm ointment UD TP ONE (10:40)
[2023-11-04] MEDS: aspirin 325mg tablet PO ONE (10:40)
[2023-11-04] MEDS: heparin 25,000 UNIT/250ml bag 250 ML IV PRN (10:59)
[2023-11-04] MEDS: heparin 10,000 units/1 ML INJ IV ONE (11:00)
[2023-11-04] MEDS: MESSAGE TO NURSING IV ONE ×2 (11:01→18:43)
[2023-11-04 11:36] LABS: APTT 26 SECONDS (22-32); INR 1.1 INR; PROTHROMBIN TIME 11.9 SECONDS (9.0-12.0)
[2023-11-04] MEDS ORDERED: ondansetron/PF 4mg/2ml inj IV PRN (13:05)
[2023-11-04] MEDS ORDERED: magnesium 4gm in 100ml NS 100 ML IV PRN (13:05)
[2023-11-04] MEDS ORDERED: magnesium hydroxide 30ml (MOM) UD suspension PO PRN (13:05)
[2023-11-04] MEDS ORDERED: potassium Cl 40MEQ/1/2NS 520ml 520 ML IV PRN (13:05)
[2023-11-04] MEDS ORDERED: mag hydrox/Alum hydrox/simeth 30ml oral suspension PO PRN (13:05)
[2023-11-04] MEDS ORDERED: potassium Cl 20 mEq SR tablet PO PRN ×2 (13:05)
[2023-11-04] MEDS ORDERED: acetaminophen 325mg tablet PO PRN (13:05)
[2023-11-04] MEDS: PERFLUTREN PROTEIN-A MICROSPHR (Optison) 0.22 MG/ML 3ML VIAL IV ONE (13:05)
[2023-11-04] MEDS ORDERED: magnesium 2GM in 50ml NS 50 ML IV PRN (13:05)
[2023-11-04 13:41] LABS: BASOPHILS # (AUTO) 0.1 X10'3 (0-0.2); BASOPHILS % (AUTO) 0.4 % (0-1); EOSINOPHILS # (AUTO) 0.3 X10'3 (0-0.9); EOSINOPHILS % (AUTO) 1.9 % (0-6); HEMATOCRIT 39.9 % (42.0-52.0); HEMOGLOBIN 11.2 g/dl (14.0-17.9); LYMPHOCYTES # (AUTO) 3.4 X10'3 (1.1-4.8); LYMPHOCYTES % (AUTO) 20.9 % (21-51); MEAN CORPUSCULAR HEMOGLOBIN 22.4 PG (27.0-31.0); MEAN CORPUSCULAR VOLUME 79.8 FL (78-98); MEAN PLATELET VOLUME 7.3 FL (7.4-10.4); MONOCYTES # (AUTO) 2.1 X10'3 (0-0.9); MONOCYTES % (AUTO) 12.5 % (2-12); NEUTROPHILS # (AUTO) 10.5 X10'3 (1.8-7.7); NEUTROPHILS % (AUTO) 64.3 % (42-75); PLATELET COUNT 291 X10'3 (140-440); RED CELL DISTRIBUTION WIDTH 22.9 % (11.5-14.5); WHITE BLOOD COUNT 16.4 X10'3 (4.5-11.0)
[2023-11-04] MEDS: HYDROcodone/acetaminophen 10/325mg tab PO ONE (15:16)
[2023-11-04] MEDS: metoprolol tartrate 50mg tablet PO ONE (15:16)
[2023-11-04] MEDS ORDERED: metoprolol tartrate 1mg/ml inj IV PRN (15:55)
[2023-11-04] MEDS ORDERED: nitroGLYCERIN 0.4mg SUBLingual tab SL PRN (15:55)
[2023-11-04 18:00] VITALS: BP 112/59; PULSE 80; RESP 17; TEMP 97.7; O2SAT 99
[2023-11-04] MEDS ORDERED: HYDROcodone/acetaminophen 5mg/325mg tablet PO PRN (19:20)
[2023-11-04] MEDS: normal saline 1000ml 1,000 ML IV SCH (19:20)
[2023-11-04] MEDS: HYDROcodone/acetaminophen 10/325mg tab PO PRN (19:29)
[2023-11-04] MEDS: docusate sod 100mg capsule PO SCH (20:00)
[2023-11-04] MEDS: K and/or MAG REPLACEMENT MC SCH (20:00)
[2023-11-04] MEDS ORDERED: HYDROcodone/acetaminophen 10/325mg tab PO PRN (21:15)
[2023-11-04 22:00] VITALS: BP 110/58; PULSE 91; RESP 16; TEMP 97.8; O2SAT 96
[2023-11-04] MEDS: morphine 2 MG/ML inj. syringe IV ONE (23:32)
[2023-11-05] VITALS (20 sets, daily range): BP systolic 101–144; BP diastolic 50–84; PULSE 74–113; RESP 12–19; TEMP 97–98.7; O2SAT 95–99
[2023-11-05] MEDS: MESSAGE TO NURSING IV ONE ×3 (02:13→15:43)
[2023-11-05 07:03] LABS: BASOPHILS % (AUTO) 0.4 % (0-1); EOSINOPHILS # (AUTO) 0.3 X10'3 (0-0.9); EOSINOPHILS % (AUTO) 2.5 % (0-6); LYMPHOCYTES # (AUTO) 2.1 X10'3 (1.1-4.8); LYMPHOCYTES % (AUTO) 16.7 % (21-51); MEAN PLATELET VOLUME 7.9 FL (7.4-10.4); MONOCYTES # (AUTO) 1.3 X10'3 (0-0.9); MONOCYTES % (AUTO) 10.6 % (2-12); NEUTROPHILS # (AUTO) 8.7 X10'3 (1.8-7.7); NEUTROPHILS % (AUTO) 69.8 % (42-75); PLATELET COUNT 195 X10'3 (140-440); RED BLOOD COUNT 4.87 X10'6 (4.70-6.10); RED CELL DISTRIBUTION WIDTH 22.5 % (11.5-14.5); WHITE BLOOD COUNT 12.5 X10'3 (4.5-11.0)
[2023-11-05 07:23] LABS: ALANINE AMINOTRANSFERASE 39 U/L (12-78); ALBUMIN 3.7 G/DL (3.4-5.0); ALBUMIN/GLOBULIN RATIO 1.1 (1.1-1.5); ALKALINE PHOSPHATASE 39 IU/L (46-116); ANION GAP 5 (8-16); ASPARTATE AMINO TRANSFERASE 30 U/L (10-37); BILIRUBIN,TOTAL 0.7 MG/DL (0.1-1.0); BLOOD UREA NITROGEN 21 MG/DL (7-18); BUN/CREATININE RATIO 26.9 (10.0-20.0); CALCIUM 8.2 MG/DL (8.5-10.1); CHLORIDE 105 MMOL/L (99-107); CREATININE 0.78 MG/DL (0.60-1.10); GLUCOSE 100 MG/DL (70-104); MAGNESIUM 2.4 MG/DL (1.5-2.4); POTASSIUM 3.7 MMOL/L (3.5-5.1); SODIUM 140 MMOL/L (135-145); TOTAL CARBON DIOXIDE 29.7 MMOL/L (24-32); TOTAL PROTEIN 7.2 G/DL (6.4-8.2); eCRCL 99 ML/MIN; eGFR > 90 ML/MIN
[2023-11-05 07:25] LABS: HEMATOCRIT 37.8 % (42.0-52.0); HEMOGLOBIN 11.9 g/dl (14.0-17.9); MEAN CORPUSCULAR HGB CONC 31.5 g/dL (33.0-36.5); MEAN CORPUSCULAR VOLUME 76.1 FL (78-98)
[2023-11-05] MEDS: atorvastatin 20mg tablet PO SCH (08:46)
[2023-11-05] MEDS: regadenoson 0.4mg/5ml syringe IV PRN (11:30)
[2023-11-05] MEDS: aminophylline 250mg/10ml inj. IV PRN (11:56)
[2023-11-05] MEDS ORDERED: iohexol 300mg/ml 100ml inj. ONE (12:22)
[2023-11-05] MEDS: heparin 10,000 units/1 ML INJ IV PRN (15:40)
[2023-11-05] MEDS: apixaban 5mg tablet PO SCH (19:25)
[2023-11-05] MEDS: carvedilol 6.25mg tablet PO SCH (19:25)
[2023-11-05] MEDS: morphine 2 MG/ML inj. syringe IV PRN (19:50)
[2023-11-05] MEDS ORDERED: apixaban 5mg tablet PO SCH (20:00)
[2023-11-05] MEDS ORDERED: carvedilol 6.25mg tablet PO SCH (20:00)
[2023-11-06] VITALS (7 sets, daily range): BP systolic 112–162; BP diastolic 62–85; PULSE 92–133; RESP 15–20; TEMP 97.2–97.8; O2SAT 95–98
[2023-11-06 06:24] LABS: BASOPHILS # (AUTO) 0.1 X10'3 (0-0.2); BASOPHILS % (AUTO) 0.7 % (0-1); EOSINOPHILS # (AUTO) 0.3 X10'3 (0-0.9); EOSINOPHILS % (AUTO) 2.9 % (0-6); LYMPHOCYTES # (AUTO) 1.4 X10'3 (1.1-4.8); LYMPHOCYTES % (AUTO) 13.9 % (21-51); MEAN PLATELET VOLUME 7.1 FL (7.4-10.4); MONOCYTES # (AUTO) 1.2 X10'3 (0-0.9); NEUTROPHILS % (AUTO) 70.5 % (42-75); PLATELET COUNT 202 X10'3 (140-440); RED BLOOD COUNT 4.49 X10'6 (4.70-6.10); RED CELL DISTRIBUTION WIDTH 22.6 % (11.5-14.5); WHITE BLOOD COUNT 9.9 X10'3 (4.5-11.0)
[2023-11-06 06:54] LABS: HEMATOCRIT 34.3 % (42.0-52.0); HEMOGLOBIN 11.2 g/dl (14.0-17.9)
[2023-11-06 06:55] LABS: MEAN CORPUSCULAR HEMOGLOBIN 24.8 PG (27.0-31.0); MEAN CORPUSCULAR HGB CONC 32.6 g/dL (33.0-36.5); MEAN CORPUSCULAR VOLUME 76.1 FL (78-98)
[2023-11-06 07:02] LABS: ALANINE AMINOTRANSFERASE 29 U/L (12-78); ALBUMIN 3.3 G/DL (3.4-5.0); ALBUMIN/GLOBULIN RATIO 0.9 (1.1-1.5); ALKALINE PHOSPHATASE 62 IU/L (46-116); ANION GAP 10 (8-16); BILIRUBIN,TOTAL 0.4 MG/DL (0.1-1.0); BLOOD UREA NITROGEN 13 MG/DL (7-18); BUN/CREATININE RATIO 18.6 (10.0-20.0); CHLORIDE 105 MMOL/L (99-107); MAGNESIUM 2.3 MG/DL (1.5-2.4); SODIUM 135 MMOL/L (135-145); TOTAL CARBON DIOXIDE 20.2 MMOL/L (24-32); eCRCL 110 ML/MIN; eGFR > 90 ML/MIN
[2023-11-06 07:04] LABS: GLUCOSE 204 MG/DL (70-104); POTASSIUM 3.7 MMOL/L (3.5-5.1)
[2023-11-06 07:20] LABS: ASPARTATE AMINO TRANSFERASE 22 U/L (10-37)
[2023-11-06] MEDS: carVEDilol 3.125mg tablet PO ONE (08:10)
[2023-11-06] MEDS: metoprolol tartrate 1mg/ml inj IV ONE (09:18)
[2023-11-06] MEDS ORDERED: ATOR20TA66 PO (14:27)
[2023-11-06] MEDS ORDERED: DIGO250T4 PO (14:27)
[2023-11-06] MEDS ORDERED: CARV6.253 PO (14:27)
[2023-11-06] MEDS: digoxin 250mcg (0.25mg) tablet PO ONE (14:34)
[2023-11-06] MEDS ORDERED: carvedilol 6.25mg tablet PO SCH (20:00)
[2023-11-07] MEDS ORDERED: digoxin 250mcg (0.25mg) tablet PO SCH (08:00)
== END 2023-11-06 19:00 | DRG 201 ==
LOC: ER 04:18 → ED HOLD 13:03 → PCU 3S 17:59
PROVIDERS: ADMIT Family Medicine; ATTEND Family Medicine
PROC: B32T1ZZ Computerized Tomography (CT Scan) of Left Pulmonary Artery using Low Osmolar Contrast (ICD-10-PCS; 2023-11-04)
PROC: B3201ZZ Computerized Tomography (CT Scan) of Thoracic Aorta using Low Osmolar Contrast (ICD-10-PCS; 2023-11-04)
PROC: B32S1ZZ Computerized Tomography (CT Scan) of Right Pulmonary Artery using Low Osmolar Contrast (ICD-10-PCS; 2023-11-04)
PROC: 4A02XM4 Measurement of Cardiac Total Activity, External Approach (ICD-10-PCS; principal; 2023-11-05)
PROC: 3E033HZ Introduction of Radioactive Substance into Peripheral Vein, Percutaneous Approach (ICD-10-PCS; 2023-11-05)
DX: I48.0 Paroxysmal atrial fibrillation (principal); I21.A1 Myocardial infarction type 2; N17.9 Acute kidney failure, unspecified; K52.9 Noninfective gastroenteritis and colitis, unspecified; M19.09 Primary osteoarthritis, other specified site; J44.9 Chronic obstructive pulmonary disease, unspecified; E03.9 Hypothyroidism, unspecified; E66.9 Obesity, unspecified; I10 Essential (primary) hypertension; E78.5 Hyperlipidemia, unspecified; I25.10 Atherosclerotic heart disease of native coronary artery without angina pectoris; G47.33 Obstructive sleep apnea (adult) (pediatric); I82.503 Chronic embolism and thrombosis of unspecified deep veins of lower extremity, bilateral; I48.92 Unspecified atrial flutter; I83.019 Varicose veins of right lower extremity with ulcer of unspecified site; Z90.49 Acquired absence of other specified parts of digestive tract; Z79.01 Long term (current) use of anticoagulants; Z79.84 Long term (current) use of oral hypoglycemic drugs; Z79.899 Other long term (current) drug therapy; Z82.49 Family history of ischemic heart disease and other diseases of the circulatory system; Z83.3 Family history of diabetes mellitus; Z87.891 Personal history of nicotine dependence; Z68.38 Body mass index [BMI] 38.0-38.9, adult
CPT/HCPCS: 36415; 71045; 71275; 74177; 78452; 80053; 83735; 83880; 84484; 85007; 85025; 85379; 85610; 85730; 87081; 93005; 93017; 93306; 99291; 99292; A4649; A6196; A6213; A6223; A6446; A6449; A9500; G0378; J0280; J1644; J2270; J2785; J3490; J7030; Q9967

== ENCOUNTER 2024-07-05 21:46 | Inpatient (IN) | payer MEDICAID ==
[~2024-07-05] VITALS: Ht 160 cm; Wt 97.6 kg
[~2024-07-05 21:46] MED LIST changes: -ATOR10TA PO; +ATOR20TA66 PO; +DIGO250T4 PO; -FURO-150 PO; -METO25TA6 PO; -POTA-205 PO
[2024-07-05 22:25] LABS: BASOPHILS # (AUTO) 0.1 X10'3 (0-0.2); BASOPHILS % (AUTO) 0.6 % (0-1); EOSINOPHILS # (AUTO) 0.2 X10'3 (0-0.9); EOSINOPHILS % (AUTO) 2.9 % (0-6); HEMATOCRIT 40.6 % (42.0-52.0); HEMOGLOBIN 13.4 g/dl (14.0-17.9); LYMPHOCYTES # (AUTO) 1.7 X10'3 (1.1-4.8); LYMPHOCYTES % (AUTO) 20.7 % (21-51); MEAN CORPUSCULAR HEMOGLOBIN 29.1 PG (27.0-31.0); MEAN CORPUSCULAR VOLUME 88.3 FL (78-98); MEAN PLATELET VOLUME 6.5 FL (7.4-10.4); MONOCYTES # (AUTO) 1.6 X10'3 (0-0.9); MONOCYTES % (AUTO) 19.3 % (2-12); NEUTROPHILS # (AUTO) 4.6 X10'3 (1.8-7.7); NEUTROPHILS % (AUTO) 56.5 % (42-75); PLATELET COUNT 261 X10'3 (140-440); RED CELL DISTRIBUTION WIDTH 19.9 % (11.5-14.5); WHITE BLOOD COUNT 8.2 X10'3 (4.5-11.0)
[2024-07-05] MEDS: ondansetron/PF 4mg/2ml inj IV ONE (22:30)
[2024-07-05] MEDS: morphine 4 MG/ML inj SYRINge IV ONE (22:30)
[2024-07-05 22:38] LABS: ALANINE AMINOTRANSFERASE 14 U/L (12-78); ALBUMIN 3.7 G/DL (3.4-5.0); ALBUMIN/GLOBULIN RATIO 0.9 (1.1-1.5); ALKALINE PHOSPHATASE 61 IU/L (46-116); ANION GAP 7 (8-16); ASPARTATE AMINO TRANSFERASE 15 U/L (10-37); BILIRUBIN,TOTAL 0.4 MG/DL (0.1-1.0); BLOOD UREA NITROGEN 14 MG/DL (7-18); BUN/CREATININE RATIO 15.6 (10.0-20.0); CALCIUM 8.7 MG/DL (8.5-10.1); CHLORIDE 103 MMOL/L (99-107); GLUCOSE 115 MG/DL (70-104); POTASSIUM 4.5 MMOL/L (3.5-5.1); SODIUM 138 MMOL/L (135-145); TOTAL CARBON DIOXIDE 27.6 MMOL/L (24-32); TOTAL PROTEIN 7.7 G/DL (6.4-8.2); eCRCL 82 ML/MIN; eGFR 90 ML/MIN
[2024-07-05 22:45] LABS: TOTAL CELLS COUNTED 100
[2024-07-05 22:46] LABS: ANISOCYTOSIS 1+; PLATELET ESTIMATE NORMAL; POLYCHROMASIA FEW
[2024-07-05 22:49] LABS: PRO BRAIN NATRIURETIC PEPTIDE 431 PG/ML (0-125)
[2024-07-05] MEDS: mag hydrox/Alum hydrox/simeth 30ml oral suspension PO ONE (23:24)
[2024-07-05] MEDS: famotidine/PF 10 mg/ml inj IV ONE (23:24)
[2024-07-05] MEDS: acetaminophen 325mg tablet PO ONE (23:25)
[2024-07-05] MEDS: ketorolac trometh 15mg/ml vial 15 MG/ML ML IV ONE (23:25)
[2024-07-06] MEDS ORDERED: vancomycin inj 1,000 MG in normal saline 250ml IV soln 250 ML IV STA (02:31)
[2024-07-06] MEDS: piperacillin/tazo 3.375gm/50ml 50 ML IV ONE (02:41)
[2024-07-06] MEDS ORDERED: HYDR-3972 PO (02:50)
[2024-07-06] MEDS ORDERED: ATOR10TA70 PO (02:52)
[2024-07-06] MEDS ORDERED: CARV-50 PO (02:52)
[2024-07-06] MEDS ORDERED: DIGO125T2 PO (02:52)
[2024-07-06] MEDS: vancomycin/NS 1 GM ADD-VANTAGE 250 ML IV STA (03:15)
[2024-07-06] MEDS ORDERED: morphine 2 MG/ML inj. syringe IV PRN (04:05)
[2024-07-06] MEDS ORDERED: potassium Cl 20 mEq SR tablet PO PRN ×2 (04:05)
[2024-07-06] MEDS ORDERED: potassium Cl 40MEQ/1/2NS 520ml 520 ML IV PRN (04:05)
[2024-07-06] MEDS ORDERED: ondansetron/PF 4mg/2ml inj IV PRN (04:05)
[2024-07-06] MEDS ORDERED: acetaminophen 325mg tablet PO PRN (04:05)
[2024-07-06] MEDS ORDERED: magnesium Cl slow-release 64mg tablet PO PRN (04:05)
[2024-07-06] MEDS ORDERED: magnesium sulf-water 2g/50mL 50 ML IV PRN (04:05)
[2024-07-06] MEDS ORDERED: mag hydrox/Alum hydrox/simeth 30ml oral suspension PO PRN (04:05)
[2024-07-06] MEDS ORDERED: magnesium sulf-water 4G/100mL 100 ML IV PRN (04:05)
[2024-07-06] MEDS ORDERED: magnesium hydroxide 30ml (MOM) UD suspension PO PRN (04:05)
[2024-07-06] MEDS ORDERED: albuterol 2.5 MG/3 ML nebule NEB PRN (04:55)
[2024-07-06] MEDS: aspirin 325mg tablet PO ONE (05:09)
[2024-07-06] MEDS: normal saline 1000ml 1,000 ML IV SCH (05:10)
[2024-07-06] MEDS: morphine 2 MG/ML inj. syringe IV PRN (05:10)
[2024-07-06 07:46] LABS: C-REACTIVE PROTEIN 0.47 MG/DL (0.0-0.5); MAGNESIUM 2.3 MG/DL (1.5-2.4); POTASSIUM 4.3 MMOL/L (3.5-5.1)
[2024-07-06] MEDS: docusate sod 100mg capsule PO SCH (08:00)
[2024-07-06] MEDS ORDERED: atorvastatin 20mg tablet PO SCH (08:00)
[2024-07-06] MEDS ORDERED: digoxin 250mcg (0.25mg) tablet PO SCH (08:00)
[2024-07-06] MEDS ORDERED: heparin, porcine 5000 units/ml vial SQ SCH (08:00)
[2024-07-06] MEDS: carvedilol 6.25mg tablet PO SCH (08:00)
[2024-07-06] MEDS: K and/or MAG REPLACEMENT MC SCH (08:00)
[2024-07-06] MEDS ORDERED: aminophylline 500mg/20ml vial IV PRN (08:15)
[2024-07-06] MEDS ORDERED: metoprolol tartrate 1mg/ml inj IV PRN (08:15)
[2024-07-06] MEDS ORDERED: regadenoson 0.4mg/5ml syringe IV PRN (08:15)
[2024-07-06] MEDS ORDERED: nitroGLYCERIN 0.4mg SUBLingual tab SL PRN (08:15)
[2024-07-06] MEDS: nitroGLYCERIN 0.4mg/hour patch TD SCH (08:26)
[2024-07-06] MEDS: duloxetine 30mg CAPSULE.DR PO SCH (08:27)
[2024-07-06] MEDS: levoTHYROXINE 25mcg tablet PO SCH (08:27)
[2024-07-06] MEDS: gabapentin 300mg capsule PO SCH (08:28)
[2024-07-06] MEDS: pantoprazole 40mg Tablet.DR PO SCH (08:29)
[2024-07-06] MEDS: atorvastatin 10mg tablet PO SCH (08:29)
[2024-07-06] MEDS: carVEDilol 12.5mg tablet PO SCH (08:30)
[2024-07-06] MEDS: HYDROcodone/acetaminophen 10/325mg tab PO SCH (08:31)
[2024-07-06] MEDS: EMPAGLIFLOZIN 10 MG TABLET PO SCH (08:32)
[2024-07-06] MEDS: digoxin 125mcg (0.125mg) tablet PO SCH (08:32)
[2024-07-06] MEDS: apixaban 5mg tablet PO SCH (08:32)
[2024-07-06] MEDS: CEFEPIME 2gm in D5W 50mL 50 ML IV SCH (09:37)
[2024-07-06 17:31] VITALS: BP 99/66; PULSE 99; RESP 12; TEMP 99; O2SAT 96
[2024-07-06] MEDS: cyclobenzaprine 10mg tablet PO SCH (20:11)
[2024-07-06 22:00] VITALS: BP 98/58; PULSE 95; RESP 16; TEMP 98; O2SAT 92
[2024-07-07] VITALS (12 sets, daily range): BP systolic 96–134; BP diastolic 47–73; PULSE 89–116; RESP 14–18; TEMP 97.9–99.1; O2SAT 94–99
[2024-07-07 06:32] LABS: BASOPHILS % (AUTO) 0.4 % (0-1); EOSINOPHILS # (AUTO) 0.3 X10'3 (0-0.9); EOSINOPHILS % (AUTO) 3.1 % (0-6); HEMATOCRIT 36.8 % (42.0-52.0); HEMOGLOBIN 12.1 g/dl (14.0-17.9); LYMPHOCYTES # (AUTO) 0.7 X10'3 (1.1-4.8); MEAN CORPUSCULAR HEMOGLOBIN 29.5 PG (27.0-31.0); MEAN CORPUSCULAR VOLUME 89.4 FL (78-98); MONOCYTES # (AUTO) 1.6 X10'3 (0-0.9); MONOCYTES % (AUTO) 16.6 % (2-12); NEUTROPHILS # (AUTO) 6.9 X10'3 (1.8-7.7); NEUTROPHILS % (AUTO) 72.9 % (42-75); PLATELET COUNT 248 X10'3 (140-440); RED BLOOD COUNT 4.11 X10'6 (4.70-6.10); RED CELL DISTRIBUTION WIDTH 19.5 % (11.5-14.5); WHITE BLOOD COUNT 9.5 X10'3 (4.5-11.0)
[2024-07-07 06:40] LABS: ALANINE AMINOTRANSFERASE 23 U/L (12-78); ALBUMIN 3.4 G/DL (3.4-5.0); ALBUMIN/GLOBULIN RATIO 0.9 (1.1-1.5); ALKALINE PHOSPHATASE 61 IU/L (46-116); ANION GAP 8 (8-16); ASPARTATE AMINO TRANSFERASE 20 U/L (10-37); BILIRUBIN,TOTAL 0.5 MG/DL (0.1-1.0); BLOOD UREA NITROGEN 20 MG/DL (7-18); BUN/CREATININE RATIO 20.4 (10.0-20.0); CALCIUM 9.1 MG/DL (8.5-10.1); CHLORIDE 105 MMOL/L (99-107); CREATININE 0.98 MG/DL (0.60-1.10); GLUCOSE 114 MG/DL (70-104); MAGNESIUM 2.3 MG/DL (1.5-2.4); POTASSIUM 4.7 MMOL/L (3.5-5.1); SODIUM 140 MMOL/L (135-145); TOTAL CARBON DIOXIDE 27.4 MMOL/L (24-32); TOTAL PROTEIN 7.4 G/DL (6.4-8.2); eCRCL 75 ML/MIN; eGFR 82 ML/MIN
[2024-07-07] MEDS: regadenoson 0.4mg/5ml syringe IV ONE (11:59)
[2024-07-07] MEDS: vancomycin/NS 1 GM ADD-VANTAGE 250 ML IV SCH (16:32)
[2024-07-08 06:00] VITALS: BP 105/66; PULSE 79; RESP 13; TEMP 97.9; O2SAT 96
[2024-07-08 07:08] VITALS: PULSE 79
[2024-07-08 07:27] LABS: ALANINE AMINOTRANSFERASE 20 U/L (12-78); ALBUMIN 3.3 G/DL (3.4-5.0); ALBUMIN/GLOBULIN RATIO 0.8 (1.1-1.5); ALKALINE PHOSPHATASE 52 IU/L (46-116); ANION GAP 9 (8-16); ASPARTATE AMINO TRANSFERASE 17 U/L (10-37); BILIRUBIN,TOTAL 0.6 MG/DL (0.1-1.0); BLOOD UREA NITROGEN 16 MG/DL (7-18); BUN/CREATININE RATIO 20.5 (10.0-20.0); CALCIUM 8.7 MG/DL (8.5-10.1); CHLORIDE 104 MMOL/L (99-107); CREATININE 0.78 MG/DL (0.60-1.10); GLUCOSE 93 MG/DL (70-104); MAGNESIUM 2.2 MG/DL (1.5-2.4); POTASSIUM 4.3 MMOL/L (3.5-5.1); SODIUM 138 MMOL/L (135-145); TOTAL CARBON DIOXIDE 24.7 MMOL/L (24-32); TOTAL PROTEIN 7.3 G/DL (6.4-8.2); eCRCL 94 ML/MIN; eGFR > 90 ML/MIN
[2024-07-08 07:45] LABS: BASOPHILS % (AUTO) 0.6 % (0-1); EOSINOPHILS # (AUTO) 0.3 X10'3 (0-0.9); EOSINOPHILS % (AUTO) 5.4 % (0-6); HEMATOCRIT 35.5 % (42.0-52.0); LYMPHOCYTES # (AUTO) 1.1 X10'3 (1.1-4.8); LYMPHOCYTES % (AUTO) 16.9 % (21-51); MEAN CORPUSCULAR HEMOGLOBIN 29.9 PG (27.0-31.0); MEAN CORPUSCULAR HGB CONC 33.7 g/dL (33.0-36.5); MEAN CORPUSCULAR VOLUME 88.8 FL (78-98); MEAN PLATELET VOLUME 7.3 FL (7.4-10.4); MONOCYTES # (AUTO) 1.3 X10'3 (0-0.9); MONOCYTES % (AUTO) 20.5 % (2-12); NEUTROPHILS # (AUTO) 3.6 X10'3 (1.8-7.7); NEUTROPHILS % (AUTO) 56.6 % (42-75); PLATELET COUNT 216 X10'3 (140-440); RED CELL DISTRIBUTION WIDTH 19.9 % (11.5-14.5); WHITE BLOOD COUNT 6.4 X10'3 (4.5-11.0)
[2024-07-08 08:00] VITALS: RESP 14; O2SAT 96
[2024-07-08] MEDS ORDERED: CIPR-259 PO (11:41)
[2024-07-08] MEDS ORDERED: LINE600T14 PO (11:41)
[2024-07-08 13:36] VITALS: RESP 14
[2024-07-08] MEDS ORDERED: VANCOMYCIN LEVEL IV ONE (15:30)
[2024-07-08] MEDS ORDERED: VANCOMYCIN 1GM 200ML H20 (PEG) 200 ML IV SCH (16:00)
[2024-07-08] MEDS ORDERED: PANT40TA54 PO (18:10)
== END 2024-07-08 15:40 | disposition home or self-care (01) | DRG 383 ==
LOC: ER 21:47 → ED HOLD 07-06 04:23 → ORTHO 4S 07-06 17:19
PROVIDERS: ADMIT Internal Medicine Sleep Medicine; ATTEND Internal Medicine
PROC: 4A02XM4 Measurement of Cardiac Total Activity, External Approach (ICD-10-PCS; principal; 2024-07-07)
PROC: 3E033HZ Introduction of Radioactive Substance into Peripheral Vein, Percutaneous Approach (ICD-10-PCS; 2024-07-07)
DX: L03.115 Cellulitis of right lower limb (principal); I50.30 Unspecified diastolic (congestive) heart failure; I11.0 Hypertensive heart disease with heart failure; L97.818 Non-pressure chronic ulcer of other part of right lower leg with other specified severity; I87.2 Venous insufficiency (chronic) (peripheral); E03.9 Hypothyroidism, unspecified; R07.89 Other chest pain; L97.828 Non-pressure chronic ulcer of other part of left lower leg with other specified severity; I25.10 Atherosclerotic heart disease of native coronary artery without angina pectoris; K21.9 Gastro-esophageal reflux disease without esophagitis; L03.116 Cellulitis of left lower limb; Z16.24 Resistance to multiple antibiotics; E78.5 Hyperlipidemia, unspecified; I48.91 Unspecified atrial fibrillation; J44.9 Chronic obstructive pulmonary disease, unspecified; Z86.718 Personal history of other venous thrombosis and embolism; Z90.49 Acquired absence of other specified parts of digestive tract; Z79.899 Other long term (current) drug therapy
CPT/HCPCS: 36415; 71045; 78452; 80053; 83605; 83735; 83880; 84132; 84145; 84484; 85007; 85025; 85651; 86140; 87040; 87070; 87081; 93005; 93017; 93306; 97110; 97161; 97530; 99285; A4615; A6196; A6213; A6253; A6446; A6449; A9500; G0378; J0692; J1885; J2270; J2405; J2543; J2785; J3370; J3490; J7030

== ENCOUNTER 2024-08-24 15:18 | Inpatient (IN) | payer MEDICAID ==
[~2024-08-24] VITALS: Ht 160 cm; Wt 102.0 kg
[~2024-08-24 15:18] MED LIST changes: +ATOR10TA70 PO; +CARV-50 PO; -CARV6.253 PO; +DIGO125T2 PO; -HYDR-3965 PO; +HYDR-3972 PO; +LINE600T14 PO; -SILD50TA PO
[2024-08-24 15:46] LABS: BASOPHILS % (AUTO) 0.3 % (0-1); EOSINOPHILS # (AUTO) 0.2 X10'3 (0-0.9); EOSINOPHILS % (AUTO) 1.6 % (0-6); HEMATOCRIT 40.3 % (42.0-52.0); LYMPHOCYTES # (AUTO) 1.7 X10'3 (1.1-4.8); MEAN CORPUSCULAR HEMOGLOBIN 28.9 PG (27.0-31.0); MEAN CORPUSCULAR HGB CONC 32.3 g/dL (33.0-36.5); MEAN CORPUSCULAR VOLUME 89.6 FL (78-98); MEAN PLATELET VOLUME 6.1 FL (7.4-10.4); MONOCYTES # (AUTO) 1.4 X10'3 (0-0.9); MONOCYTES % (AUTO) 13.8 % (2-12); NEUTROPHILS # (AUTO) 6.9 X10'3 (1.8-7.7); NEUTROPHILS % (AUTO) 67.3 % (42-75); PLATELET COUNT 332 X10'3 (140-440); RED CELL DISTRIBUTION WIDTH 17.7 % (11.5-14.5); WHITE BLOOD COUNT 10.2 X10'3 (4.5-11.0)
[2024-08-24] MEDS: normal saline 1000ML IV soln IVB ONE (16:33)
[2024-08-24] MEDS: MEROPENEM 1GM/NACL 50ML IVPB 50 ML IV SCH (17:10)
[2024-08-24 17:13] LABS: ALANINE AMINOTRANSFERASE 26 U/L (12-78); ALBUMIN 3.7 G/DL (3.4-5.0); ALBUMIN/GLOBULIN RATIO 0.7 (1.1-1.5); ALKALINE PHOSPHATASE 63 IU/L (46-116); ANION GAP 9 (8-16); ASPARTATE AMINO TRANSFERASE 17 U/L (10-37); BILIRUBIN,TOTAL 0.5 MG/DL (0.1-1.0); BLOOD UREA NITROGEN 9 MG/DL (7-18); BUN/CREATININE RATIO 12.7 (10.0-20.0); CALCIUM 9.1 MG/DL (8.5-10.1); CHLORIDE 101 MMOL/L (99-107); CREATININE 0.71 MG/DL (0.60-1.10); GLUCOSE 93 MG/DL (70-104); SODIUM 139 MMOL/L (135-145); TOTAL PROTEIN 8.7 G/DL (6.4-8.2); eCRCL 104 ML/MIN; eGFR > 90 ML/MIN
[2024-08-24] MEDS: HYDROmorphone 1 mg/ml syringe IV ONE (17:13)
[2024-08-24] MEDS ORDERED: potassium Cl 20 mEq SR tablet PO PRN ×2 (17:30)
[2024-08-24] MEDS ORDERED: acetaminophen 325mg tablet PO PRN ×2 (17:30)
[2024-08-24] MEDS ORDERED: morphine 2 MG/ML inj. syringe IV PRN ×2 (17:30)
[2024-08-24] MEDS ORDERED: magnesium sulf-water 4G/100mL 100 ML IV PRN (17:30)
[2024-08-24] MEDS ORDERED: magnesium sulf-water 2g/50mL 50 ML IV PRN (17:30)
[2024-08-24] MEDS ORDERED: potassium Cl 40MEQ/1/2NS 520ml 520 ML IV PRN (17:30)
[2024-08-24] MEDS ORDERED: ondansetron/PF 4mg/2ml inj IV PRN (17:30)
[2024-08-24] MEDS ORDERED: magnesium hydroxide 30ml (MOM) UD suspension PO PRN (17:30)
[2024-08-24] MEDS ORDERED: mag hydrox/Alum hydrox/simeth 30ml oral suspension PO PRN (17:30)
[2024-08-24] MEDS ORDERED: magnesium Cl slow-release 64mg tablet PO PRN (17:30)
[2024-08-24] MEDS ORDERED: LEVO75TA7 PO (17:39)
[2024-08-24] MEDS ORDERED: APIX5TAB3 PO (17:39)
[2024-08-24] MEDS ORDERED: ATOR20TA PO (17:39)
[2024-08-24] MEDS ORDERED: OXYC1TAB17 PO (17:39)
[2024-08-24] MEDS ORDERED: GABA300C PO (17:39)
[2024-08-24] MEDS: vancomycin/NS 1 GM ADD-VANTAGE 250 ML X 1 DOSE IV ONE (17:56)
[2024-08-24] MEDS: HYDROmorphone inj. 0.5 MG/0.5 ML DISP.SYRIN IV PRN ×2 (17:56→22:42)
[2024-08-24] MEDS: duloxetine 30mg CAPSULE.DR PO SCH (18:40)
[2024-08-24 19:06] LABS: D-DIMER 0.54 MG/L FEU (0-0.50)
[2024-08-24] MEDS: levoTHYROXINE 75mcg tablet PO SCH (19:06)
[2024-08-24] MEDS ORDERED: ipratropium/albuterol 3ml nebule NEB PRN (19:10)
[2024-08-24 19:18] VITALS: PULSE 105; RESP 18; O2SAT 98
[2024-08-24 19:50] LABS: THYROID STIMULATING HORMONE 4.18 ulU/ml (0.34-4.50)
[2024-08-24 19:51] LABS: DIGOXIN 0.4 NG/ML (0.9-1.9)
[2024-08-24] MEDS: docusate sod 100mg capsule PO SCH (20:00)
[2024-08-24] MEDS: K and/or MAG REPLACEMENT MC SCH (20:00)
[2024-08-24] MEDS: normal saline 1000ml 1,000 ML IV SCH (20:06)
[2024-08-24] MEDS: cyclobenzaprine 10mg tablet PO SCH (20:16)
[2024-08-24] MEDS: gabapentin 300mg capsule PO SCH (20:16)
[2024-08-24] MEDS: atorvastatin 20mg tablet PO SCH (20:16)
[2024-08-24] MEDS: carVEDilol 12.5mg tablet PO SCH (20:16)
[2024-08-24 21:00] VITALS: BP 136/81; PULSE 92; RESP 16; TEMP 97.2; O2SAT 96
[2024-08-24 21:45] VITALS: RESP 18; O2SAT 96
[2024-08-24] MEDS: digoxin 125mcg (0.125mg) tablet PO SCH (22:40)
[2024-08-25] VITALS (8 sets, daily range): BP systolic 119–129; BP diastolic 63–65; PULSE 76–113; RESP 14–18; TEMP 98.1; O2SAT 97–98
[2024-08-25] MEDS: heparin, porcine 5000 units/ml vial SQ SCH (00:11)
[2024-08-25] MEDS: vancomycin/NS 1 GM ADD-VANTAGE 250 ML IV SCH (02:10)
[2024-08-25] MEDS: HYDROcodone/acetaminophen 10/325mg tab PO PRN (08:40)
[2024-08-25] MEDS: EMPAGLIFLOZIN 10 MG TABLET PO SCH (08:41)
[2024-08-25] MEDS: ipratropium 0.5 MG/2.5ML nebule IH SCH (08:52)
[2024-08-25 09:48] LABS: BASOPHILS % (AUTO) 0.4 % (0-1); EOSINOPHILS # (AUTO) 0.2 X10'3 (0-0.9); EOSINOPHILS % (AUTO) 2.3 % (0-6); HEMATOCRIT 40.9 % (42.0-52.0); HEMOGLOBIN 13.2 g/dl (14.0-17.9); LYMPHOCYTES # (AUTO) 1.4 X10'3 (1.1-4.8); LYMPHOCYTES % (AUTO) 16.8 % (21-51); MEAN CORPUSCULAR HGB CONC 32.4 g/dL (33.0-36.5); MEAN CORPUSCULAR VOLUME 89.6 FL (78-98); MEAN PLATELET VOLUME 6.4 FL (7.4-10.4); MONOCYTES # (AUTO) 0.8 X10'3 (0-0.9); MONOCYTES % (AUTO) 9.4 % (2-12); NEUTROPHILS # (AUTO) 5.9 X10'3 (1.8-7.7); NEUTROPHILS % (AUTO) 71.1 % (42-75); PLATELET COUNT 323 X10'3 (140-440); RED BLOOD COUNT 4.56 X10'6 (4.70-6.10); RED CELL DISTRIBUTION WIDTH 17.6 % (11.5-14.5); WHITE BLOOD COUNT 8.3 X10'3 (4.5-11.0)
[2024-08-25 10:24] LABS: ALANINE AMINOTRANSFERASE 20 U/L (12-78); ALBUMIN 3.1 G/DL (3.4-5.0); ALBUMIN/GLOBULIN RATIO 0.6 (1.1-1.5); ALKALINE PHOSPHATASE 57 IU/L (46-116); ANION GAP 8 (8-16); ASPARTATE AMINO TRANSFERASE 20 U/L (10-37); BILIRUBIN,TOTAL 0.6 MG/DL (0.1-1.0); BLOOD UREA NITROGEN 9 MG/DL (7-18); BUN/CREATININE RATIO 11.5 (10.0-20.0); CALCIUM 9.1 MG/DL (8.5-10.1); CHLORIDE 104 MMOL/L (99-107); CREATININE 0.78 MG/DL (0.60-1.10); GLUCOSE 114 MG/DL (70-104); MAGNESIUM 1.9 MG/DL (1.5-2.4); POTASSIUM 3.9 MMOL/L (3.5-5.1); SODIUM 138 MMOL/L (135-145); TOTAL CARBON DIOXIDE 26.3 MMOL/L (24-32); TOTAL PROTEIN 8.1 G/DL (6.4-8.2); eCRCL 94 ML/MIN; eGFR > 90 ML/MIN
[2024-08-25] MEDS: morphine 2 MG/ML inj. syringe IV PRN (10:36)
[2024-08-25] MEDS: VANCOMYCIN LEVEL IV ONE (17:30)
[2024-08-25] MEDS: pantoprazole 40 MG vial IV SCH (22:11)
[2024-08-26] VITALS (9 sets, daily range): BP systolic 117–141; BP diastolic 61–72; PULSE 84–113; RESP 14–18; TEMP 97.1–98.4; O2SAT 96–99
[2024-08-26 06:12] LABS: BASOPHILS # (AUTO) 0.1 X10'3 (0-0.2); EOSINOPHILS # (AUTO) 0.3 X10'3 (0-0.9); EOSINOPHILS % (AUTO) 3.7 % (0-6); HEMATOCRIT 36.9 % (42.0-52.0); HEMOGLOBIN 12.1 g/dl (14.0-17.9); LYMPHOCYTES # (AUTO) 1.7 X10'3 (1.1-4.8); MEAN CORPUSCULAR HEMOGLOBIN 29.4 PG (27.0-31.0); MEAN CORPUSCULAR HGB CONC 32.9 g/dL (33.0-36.5); MEAN CORPUSCULAR VOLUME 89.3 FL (78-98); MEAN PLATELET VOLUME 6.7 FL (7.4-10.4); MONOCYTES # (AUTO) 1.1 X10'3 (0-0.9); MONOCYTES % (AUTO) 14.3 % (2-12); NEUTROPHILS # (AUTO) 4.4 X10'3 (1.8-7.7); PLATELET COUNT 288 X10'3 (140-440); RED BLOOD COUNT 4.13 X10'6 (4.70-6.10); RED CELL DISTRIBUTION WIDTH 17.6 % (11.5-14.5); WHITE BLOOD COUNT 7.6 X10'3 (4.5-11.0)
[2024-08-26 06:41] LABS: ALANINE AMINOTRANSFERASE 22 U/L (12-78); ALBUMIN 2.9 G/DL (3.4-5.0); ALBUMIN/GLOBULIN RATIO 0.6 (1.1-1.5); ALKALINE PHOSPHATASE 59 IU/L (46-116); ANION GAP 5 (8-16); ASPARTATE AMINO TRANSFERASE 14 U/L (10-37); BILIRUBIN,TOTAL 0.4 MG/DL (0.1-1.0); BLOOD UREA NITROGEN 12 MG/DL (7-18); BUN/CREATININE RATIO 23.1 (10.0-20.0); CALCIUM 9.1 MG/DL (8.5-10.1); CHLORIDE 106 MMOL/L (99-107); CREATININE 0.52 MG/DL (0.60-1.10); GLUCOSE 102 MG/DL (70-104); SODIUM 139 MMOL/L (135-145); TOTAL CARBON DIOXIDE 27.6 MMOL/L (24-32); TOTAL PROTEIN 7.4 G/DL (6.4-8.2); eCRCL 141 ML/MIN; eGFR > 90 ML/MIN
[2024-08-26] MEDS: VANCOMYCIN LEVEL IV ONE (09:30)
[2024-08-26] MEDS: VANCOMYCIN/WATER FOR INJ (PEG) 1.25GM/250 ML IVPB IV SCH (11:43)
[2024-08-26] MEDS: JUVEN Shake w/Arg/Glut/Ca2+Bmb (Juven 19.3gm) pkt 240ml PO SCH (17:30)
[2024-08-27] VITALS (8 sets, daily range): BP systolic 101–140; BP diastolic 61–73; PULSE 70–101; RESP 16–19; TEMP 97–98.2; O2SAT 96–98
[2024-08-27 06:42] LABS: BASOPHILS # (AUTO) 0.1 X10'3 (0-0.2); BASOPHILS % (AUTO) 0.9 % (0-1); EOSINOPHILS # (AUTO) 0.3 X10'3 (0-0.9); EOSINOPHILS % (AUTO) 3.8 % (0-6); HEMATOCRIT 38.6 % (42.0-52.0); HEMOGLOBIN 12.9 g/dl (14.0-17.9); LYMPHOCYTES # (AUTO) 2.2 X10'3 (1.1-4.8); LYMPHOCYTES % (AUTO) 27.4 % (21-51); MEAN CORPUSCULAR HEMOGLOBIN 29.9 PG (27.0-31.0); MEAN CORPUSCULAR HGB CONC 33.4 g/dL (33.0-36.5); MEAN CORPUSCULAR VOLUME 89.3 FL (78-98); MEAN PLATELET VOLUME 6.2 FL (7.4-10.4); MONOCYTES # (AUTO) 1.3 X10'3 (0-0.9); MONOCYTES % (AUTO) 15.3 % (2-12); NEUTROPHILS # (AUTO) 4.3 X10'3 (1.8-7.7); NEUTROPHILS % (AUTO) 52.6 % (42-75); PLATELET COUNT 296 X10'3 (140-440); RED BLOOD COUNT 4.32 X10'6 (4.70-6.10); RED CELL DISTRIBUTION WIDTH 17.6 % (11.5-14.5); WHITE BLOOD COUNT 8.2 X10'3 (4.5-11.0)
[2024-08-27 06:54] LABS: ALANINE AMINOTRANSFERASE 24 U/L (12-78); ALBUMIN 3.1 G/DL (3.4-5.0); ALBUMIN/GLOBULIN RATIO 0.7 (1.1-1.5); ALKALINE PHOSPHATASE 51 IU/L (46-116); ANION GAP 5 (8-16); ASPARTATE AMINO TRANSFERASE 11 U/L (10-37); BILIRUBIN,TOTAL 0.4 MG/DL (0.1-1.0); BLOOD UREA NITROGEN 11 MG/DL (7-18); BUN/CREATININE RATIO 17.5 (10.0-20.0); CALCIUM 9.1 MG/DL (8.5-10.1); CHLORIDE 103 MMOL/L (99-107); CREATININE 0.63 MG/DL (0.60-1.10); GLUCOSE 91 MG/DL (70-104); MAGNESIUM 2.1 MG/DL (1.5-2.4); POTASSIUM 4.4 MMOL/L (3.5-5.1); SODIUM 137 MMOL/L (135-145); TOTAL CARBON DIOXIDE 29.4 MMOL/L (24-32); TOTAL PROTEIN 7.6 G/DL (6.4-8.2); eCRCL 117 ML/MIN; eGFR > 90 ML/MIN
[2024-08-27 07:56] LABS: TOTAL CELLS COUNTED 100
[2024-08-27 07:57] LABS: ANISOCYTOSIS 1+; PLATELET ESTIMATE NORMAL
[2024-08-27] MEDS: VANCOMYCIN LEVEL IV ONE (09:30)
[2024-08-27] MEDS: VANCOMYCIN/WATER FOR INJ (PEG) 750MG/150 ML IVPB IV SCH (12:56)
[2024-08-27] MEDS ORDERED: nystatin 15 GM powder TP SCH (20:00)
[2024-08-28] VITALS (14 sets, daily range): BP systolic 104–124; BP diastolic 52–64; PULSE 90–100; RESP 15–18; TEMP 98–98.8; O2SAT 95–99
[2024-08-28 06:17] LABS: BASOPHILS # (AUTO) 0.1 X10'3 (0-0.2); BASOPHILS % (AUTO) 1.1 % (0-1); EOSINOPHILS # (AUTO) 0.4 X10'3 (0-0.9); EOSINOPHILS % (AUTO) 4.6 % (0-6); HEMATOCRIT 38.8 % (42.0-52.0); HEMOGLOBIN 12.6 g/dl (14.0-17.9); LYMPHOCYTES % (AUTO) 25.5 % (21-51); MEAN CORPUSCULAR HGB CONC 32.4 g/dL (33.0-36.5); MEAN CORPUSCULAR VOLUME 89.5 FL (78-98); MEAN PLATELET VOLUME 6.4 FL (7.4-10.4); MONOCYTES # (AUTO) 1.3 X10'3 (0-0.9); MONOCYTES % (AUTO) 16.5 % (2-12); NEUTROPHILS # (AUTO) 4.1 X10'3 (1.8-7.7); NEUTROPHILS % (AUTO) 52.3 % (42-75); PLATELET COUNT 322 X10'3 (140-440); RED BLOOD COUNT 4.33 X10'6 (4.70-6.10); RED CELL DISTRIBUTION WIDTH 17.6 % (11.5-14.5); WHITE BLOOD COUNT 7.8 X10'3 (4.5-11.0)
[2024-08-28 06:53] LABS: ALANINE AMINOTRANSFERASE 34 U/L (12-78); ALBUMIN/GLOBULIN RATIO 0.7 (1.1-1.5); ALKALINE PHOSPHATASE 59 IU/L (46-116); ANION GAP 6 (8-16); ASPARTATE AMINO TRANSFERASE 24 U/L (10-37); BILIRUBIN,TOTAL 0.3 MG/DL (0.1-1.0); BLOOD UREA NITROGEN 14 MG/DL (7-18); BUN/CREATININE RATIO 22.2 (10.0-20.0); CALCIUM 9.2 MG/DL (8.5-10.1); CHLORIDE 103 MMOL/L (99-107); CREATININE 0.63 MG/DL (0.60-1.10); GLUCOSE 103 MG/DL (70-104); MAGNESIUM 2.1 MG/DL (1.5-2.4); POTASSIUM 4.2 MMOL/L (3.5-5.1); SODIUM 137 MMOL/L (135-145); TOTAL CARBON DIOXIDE 27.9 MMOL/L (24-32); TOTAL PROTEIN 7.5 G/DL (6.4-8.2); eCRCL 117 ML/MIN; eGFR > 90 ML/MIN
[2024-08-28 07:51] LABS: HEMOGLOBIN A1C 5.4 % (4.5-6.2)
[2024-08-28] MEDS: pantoprazole 40mg Tablet.DR PO SCH (07:56)
[2024-08-28] MEDS: VANCOMYCIN LEVEL IV ONE (11:21)
[2024-08-28] MEDS: apixaban 5mg tablet PO SCH (20:52)
[2024-08-29] VITALS (9 sets, daily range): BP systolic 102–135; BP diastolic 57–71; PULSE 97–105; RESP 16–18; TEMP 97.8–98.1; O2SAT 97–98
[2024-08-29 05:33] LABS: BASOPHILS # (AUTO) 0.1 X10'3 (0-0.2); BASOPHILS % (AUTO) 0.7 % (0-1); EOSINOPHILS # (AUTO) 0.3 X10'3 (0-0.9); EOSINOPHILS % (AUTO) 3.5 % (0-6); HEMATOCRIT 38.1 % (42.0-52.0); HEMOGLOBIN 12.7 g/dl (14.0-17.9); LYMPHOCYTES # (AUTO) 1.8 X10'3 (1.1-4.8); LYMPHOCYTES % (AUTO) 17.8 % (21-51); MEAN CORPUSCULAR HEMOGLOBIN 29.4 PG (27.0-31.0); MEAN CORPUSCULAR HGB CONC 33.3 g/dL (33.0-36.5); MEAN CORPUSCULAR VOLUME 88.4 FL (78-98); MEAN PLATELET VOLUME 6.5 FL (7.4-10.4); MONOCYTES # (AUTO) 1.3 X10'3 (0-0.9); MONOCYTES % (AUTO) 13.6 % (2-12); NEUTROPHILS # (AUTO) 6.4 X10'3 (1.8-7.7); NEUTROPHILS % (AUTO) 64.4 % (42-75); PLATELET COUNT 325 X10'3 (140-440); RED BLOOD COUNT 4.31 X10'6 (4.70-6.10); WHITE BLOOD COUNT 9.9 X10'3 (4.5-11.0)
[2024-08-29 05:49] LABS: ALANINE AMINOTRANSFERASE 44 U/L (12-78); ALBUMIN 3.1 G/DL (3.4-5.0); ALBUMIN/GLOBULIN RATIO 0.7 (1.1-1.5); ALKALINE PHOSPHATASE 64 IU/L (46-116); ANION GAP 7 (8-16); ASPARTATE AMINO TRANSFERASE 35 U/L (10-37); BILIRUBIN,TOTAL 0.3 MG/DL (0.1-1.0); BLOOD UREA NITROGEN 16 MG/DL (7-18); BUN/CREATININE RATIO 27.6 (10.0-20.0); CALCIUM 8.9 MG/DL (8.5-10.1); CHLORIDE 101 MMOL/L (99-107); CREATININE 0.58 MG/DL (0.60-1.10); GLUCOSE 98 MG/DL (70-104); POTASSIUM 4.4 MMOL/L (3.5-5.1); SODIUM 137 MMOL/L (135-145); TOTAL CARBON DIOXIDE 29.3 MMOL/L (24-32); TOTAL PROTEIN 7.7 G/DL (6.4-8.2); eCRCL 127 ML/MIN; eGFR > 90 ML/MIN
[2024-08-29] MEDS ORDERED: morphine 2 MG/ML inj. syringe IV PRN ×2 (19:20)
[2024-08-29] MEDS: HYDROmorphone 1 mg/ml syringe IV PRN (20:44)
[2024-08-30] VITALS (9 sets, daily range): BP systolic 110–126; BP diastolic 58–71; PULSE 83–105; RESP 12–18; TEMP 97.8–98.6; O2SAT 94–98
[2024-08-30 09:42] LABS: BASOPHILS # (AUTO) 0.1 X10'3 (0-0.2); BASOPHILS % (AUTO) 0.9 % (0-1); EOSINOPHILS # (AUTO) 0.4 X10'3 (0-0.9); EOSINOPHILS % (AUTO) 4.9 % (0-6); HEMOGLOBIN 13.2 g/dl (14.0-17.9); LYMPHOCYTES # (AUTO) 1.8 X10'3 (1.1-4.8); MEAN CORPUSCULAR HEMOGLOBIN 28.7 PG (27.0-31.0); MEAN CORPUSCULAR HGB CONC 32.3 g/dL (33.0-36.5); MEAN PLATELET VOLUME 6.5 FL (7.4-10.4); MONOCYTES # (AUTO) 0.7 X10'3 (0-0.9); NEUTROPHILS # (AUTO) 4.5 X10'3 (1.8-7.7); NEUTROPHILS % (AUTO) 60.2 % (42-75); PLATELET COUNT 304 X10'3 (140-440); RED BLOOD COUNT 4.61 X10'6 (4.70-6.10); RED CELL DISTRIBUTION WIDTH 17.3 % (11.5-14.5); WHITE BLOOD COUNT 7.4 X10'3 (4.5-11.0)
[2024-08-30 09:54] LABS: ALANINE AMINOTRANSFERASE 60 U/L (12-78); ALBUMIN 3.5 G/DL (3.4-5.0); ALBUMIN/GLOBULIN RATIO 0.7 (1.1-1.5); ALKALINE PHOSPHATASE 63 IU/L (46-116); ANION GAP 4 (8-16); ASPARTATE AMINO TRANSFERASE 39 U/L (10-37); BILIRUBIN,TOTAL 0.4 MG/DL (0.1-1.0); BLOOD UREA NITROGEN 15 MG/DL (7-18); BUN/CREATININE RATIO 25.4 (10.0-20.0); CALCIUM 9.2 MG/DL (8.5-10.1); CHLORIDE 101 MMOL/L (99-107); CREATININE 0.59 MG/DL (0.60-1.10); GLUCOSE 113 MG/DL (70-104); POTASSIUM 4.2 MMOL/L (3.5-5.1); SODIUM 136 MMOL/L (135-145); TOTAL PROTEIN 8.3 G/DL (6.4-8.2); eCRCL 125 ML/MIN; eGFR > 90 ML/MIN
[2024-08-30] MEDS: cyclobenzaprine 10mg tablet PO PRN (17:36)
[2024-08-30] MEDS ORDERED: diphenhydrAMINE 25mg capsule PO PRN (22:00)
[2024-08-31] VITALS (10 sets, daily range): BP systolic 105–124; BP diastolic 65–77; PULSE 80–102; RESP 14–20; TEMP 98.1–98.9; O2SAT 96–100
[2024-08-31 08:48] LABS: BASOPHILS # (AUTO) 0.1 X10'3 (0-0.2); BASOPHILS % (AUTO) 0.9 % (0-1); EOSINOPHILS # (AUTO) 0.3 X10'3 (0-0.9); EOSINOPHILS % (AUTO) 3.5 % (0-6); HEMATOCRIT 37.8 % (42.0-52.0); HEMOGLOBIN 12.4 g/dl (14.0-17.9); LYMPHOCYTES # (AUTO) 2.1 X10'3 (1.1-4.8); LYMPHOCYTES % (AUTO) 22.9 % (21-51); MEAN CORPUSCULAR HEMOGLOBIN 29.1 PG (27.0-31.0); MEAN CORPUSCULAR HGB CONC 32.9 g/dL (33.0-36.5); MEAN CORPUSCULAR VOLUME 88.5 FL (78-98); MEAN PLATELET VOLUME 6.1 FL (7.4-10.4); MONOCYTES # (AUTO) 1.3 X10'3 (0-0.9); NEUTROPHILS # (AUTO) 5.3 X10'3 (1.8-7.7); NEUTROPHILS % (AUTO) 58.7 % (42-75); PLATELET COUNT 292 X10'3 (140-440); RED BLOOD COUNT 4.27 X10'6 (4.70-6.10); RED CELL DISTRIBUTION WIDTH 17.6 % (11.5-14.5)
[2024-08-31 09:02] LABS: ALANINE AMINOTRANSFERASE 64 U/L (12-78); ALBUMIN 3.3 G/DL (3.4-5.0); ALBUMIN/GLOBULIN RATIO 0.7 (1.1-1.5); ALKALINE PHOSPHATASE 61 IU/L (46-116); ANION GAP 6 (8-16); ASPARTATE AMINO TRANSFERASE 42 U/L (10-37); BILIRUBIN,TOTAL 0.3 MG/DL (0.1-1.0); BLOOD UREA NITROGEN 13 MG/DL (7-18); BUN/CREATININE RATIO 17.8 (10.0-20.0); CALCIUM 9.1 MG/DL (8.5-10.1); CHLORIDE 101 MMOL/L (99-107); CREATININE 0.73 MG/DL (0.60-1.10); GLUCOSE 95 MG/DL (70-104); POTASSIUM 4.1 MMOL/L (3.5-5.1); SODIUM 137 MMOL/L (135-145); TOTAL CARBON DIOXIDE 29.8 MMOL/L (24-32); TOTAL PROTEIN 7.9 G/DL (6.4-8.2); eCRCL 101 ML/MIN; eGFR > 90 ML/MIN
[2024-08-31] MEDS: MULTIVIT-MIN/FERROUS GLUCONATE 9 MG/15 ML LIQUID PO SCH (14:20)
[2024-09-01] VITALS (12 sets, daily range): BP systolic 104–131; BP diastolic 56–79; PULSE 69–108; RESP 14–19; TEMP 97.5–98.1; O2SAT 94–98
[2024-09-01 05:36] LABS: BASOPHILS # (AUTO) 0.1 X10'3 (0-0.2); EOSINOPHILS # (AUTO) 0.3 X10'3 (0-0.9); EOSINOPHILS % (AUTO) 3.8 % (0-6); HEMATOCRIT 38.1 % (42.0-52.0); HEMOGLOBIN 12.5 g/dl (14.0-17.9); LYMPHOCYTES # (AUTO) 2.4 X10'3 (1.1-4.8); LYMPHOCYTES % (AUTO) 26.7 % (21-51); MEAN CORPUSCULAR HEMOGLOBIN 29.2 PG (27.0-31.0); MEAN CORPUSCULAR HGB CONC 32.7 g/dL (33.0-36.5); MEAN CORPUSCULAR VOLUME 89.3 FL (78-98); MEAN PLATELET VOLUME 6.6 FL (7.4-10.4); MONOCYTES # (AUTO) 1.5 X10'3 (0-0.9); NEUTROPHILS # (AUTO) 4.7 X10'3 (1.8-7.7); NEUTROPHILS % (AUTO) 51.5 % (42-75); PLATELET COUNT 303 X10'3 (140-440); RED BLOOD COUNT 4.27 X10'6 (4.70-6.10); RED CELL DISTRIBUTION WIDTH 17.4 % (11.5-14.5)
[2024-09-01 08:43] LABS: TOTAL CELLS COUNTED 100
[2024-09-01 08:45] LABS: ANISOCYTOSIS 1+; PLATELET ESTIMATE NORMAL
[2024-09-01 08:46] LABS: POLYCHROMASIA FEW; STOMATOCYTES FEW
[2024-09-02] VITALS (10 sets, daily range): BP systolic 110–128; BP diastolic 59–73; PULSE 93–106; RESP 12–20; TEMP 98.1–99; O2SAT 94–99
[2024-09-02 02:09] LABS: BASOPHILS # (AUTO) 0.1 X10'3 (0-0.2); BASOPHILS % (AUTO) 1.3 % (0-1); EOSINOPHILS # (AUTO) 0.3 X10'3 (0-0.9); EOSINOPHILS % (AUTO) 3.5 % (0-6); HEMATOCRIT 37.1 % (42.0-52.0); HEMOGLOBIN 12.5 g/dl (14.0-17.9); LYMPHOCYTES # (AUTO) 2.5 X10'3 (1.1-4.8); LYMPHOCYTES % (AUTO) 26.4 % (21-51); MEAN CORPUSCULAR HEMOGLOBIN 29.9 PG (27.0-31.0); MEAN CORPUSCULAR HGB CONC 33.7 g/dL (33.0-36.5); MEAN CORPUSCULAR VOLUME 88.8 FL (78-98); MEAN PLATELET VOLUME 6.5 FL (7.4-10.4); MONOCYTES # (AUTO) 1.7 X10'3 (0-0.9); MONOCYTES % (AUTO) 17.6 % (2-12); NEUTROPHILS # (AUTO) 4.9 X10'3 (1.8-7.7); NEUTROPHILS % (AUTO) 51.2 % (42-75); PLATELET COUNT 277 X10'3 (140-440); RED BLOOD COUNT 4.18 X10'6 (4.70-6.10); RED CELL DISTRIBUTION WIDTH 17.8 % (11.5-14.5); WHITE BLOOD COUNT 9.6 X10'3 (4.5-11.0)
[2024-09-02] MEDS: VANCOMYCIN LEVEL IV ONE (02:15)
[2024-09-02 02:24] LABS: ALANINE AMINOTRANSFERASE 60 U/L (12-78); ALBUMIN 3.2 G/DL (3.4-5.0); ALBUMIN/GLOBULIN RATIO 0.7 (1.1-1.5); ALKALINE PHOSPHATASE 69 IU/L (46-116); ANION GAP 5 (8-16); ASPARTATE AMINO TRANSFERASE 30 U/L (10-37); BILIRUBIN,TOTAL 0.4 MG/DL (0.1-1.0); BLOOD UREA NITROGEN 19 MG/DL (7-18); BUN/CREATININE RATIO 29.2 (10.0-20.0); CALCIUM 8.9 MG/DL (8.5-10.1); CHLORIDE 104 MMOL/L (99-107); CREATININE 0.65 MG/DL (0.60-1.10); GLUCOSE 105 MG/DL (70-104); POTASSIUM 4.5 MMOL/L (3.5-5.1); SODIUM 138 MMOL/L (135-145); TOTAL PROTEIN 7.6 G/DL (6.4-8.2); eCRCL 113 ML/MIN; eGFR > 90 ML/MIN
[2024-09-03 05:21] LABS: BASOPHILS # (AUTO) 0.1 X10'3 (0-0.2); EOSINOPHILS # (AUTO) 0.3 X10'3 (0-0.9); EOSINOPHILS % (AUTO) 3.5 % (0-6); HEMATOCRIT 38.4 % (42.0-52.0); HEMOGLOBIN 12.5 g/dl (14.0-17.9); LYMPHOCYTES # (AUTO) 2.3 X10'3 (1.1-4.8); LYMPHOCYTES % (AUTO) 25.4 % (21-51); MEAN CORPUSCULAR HEMOGLOBIN 28.8 PG (27.0-31.0); MEAN CORPUSCULAR HGB CONC 32.5 g/dL (33.0-36.5); MEAN CORPUSCULAR VOLUME 88.6 FL (78-98); MEAN PLATELET VOLUME 6.5 FL (7.4-10.4); MONOCYTES # (AUTO) 1.7 X10'3 (0-0.9); MONOCYTES % (AUTO) 18.5 % (2-12); NEUTROPHILS # (AUTO) 4.7 X10'3 (1.8-7.7); NEUTROPHILS % (AUTO) 51.6 % (42-75); PLATELET COUNT 274 X10'3 (140-440); RED BLOOD COUNT 4.33 X10'6 (4.70-6.10); RED CELL DISTRIBUTION WIDTH 17.6 % (11.5-14.5); WHITE BLOOD COUNT 9.1 X10'3 (4.5-11.0)
[2024-09-03 05:39] LABS: ALANINE AMINOTRANSFERASE 58 U/L (12-78); ALBUMIN 3.4 G/DL (3.4-5.0); ALBUMIN/GLOBULIN RATIO 0.8 (1.1-1.5); ALKALINE PHOSPHATASE 71 IU/L (46-116); ANION GAP 4 (8-16); ASPARTATE AMINO TRANSFERASE 21 U/L (10-37); BILIRUBIN,TOTAL 0.4 MG/DL (0.1-1.0); BLOOD UREA NITROGEN 15 MG/DL (7-18); BUN/CREATININE RATIO 25.4 (10.0-20.0); CHLORIDE 103 MMOL/L (99-107); CREATININE 0.59 MG/DL (0.60-1.10); GLUCOSE 99 MG/DL (70-104); POTASSIUM 4.2 MMOL/L (3.5-5.1); SODIUM 139 MMOL/L (135-145); TOTAL CARBON DIOXIDE 32.5 MMOL/L (24-32); TOTAL PROTEIN 7.8 G/DL (6.4-8.2); eCRCL 125 ML/MIN; eGFR > 90 ML/MIN
[2024-09-03 06:00] VITALS: BP 139/75; PULSE 97; RESP 12; TEMP 97.5; O2SAT 99
[2024-09-03 08:17] VITALS: PULSE 91; RESP 18; O2SAT 96
[2024-09-03 08:24] VITALS: PULSE 16
[2024-09-03] MEDS ORDERED: VANCOMYCIN IV SCH (12:18)
[2024-09-03] MEDS ORDERED: WATER IV SCH (12:18)
[2024-09-03] MEDS: VANCOMYCIN 750MG IV in NS 250 ML IV SCH (13:23)
[2024-09-03] MEDS: GADOTERATE MEGLUMINE 7.5 MMOL/15 ML VIAL IV ONE (13:24)
[2024-09-03 14:49] VITALS: PULSE 97; RESP 16; O2SAT 97
[2024-09-03 14:56] VITALS: PULSE 93; RESP 16
[2024-09-03 17:23] VITALS: RESP 18
== END 2024-09-03 17:32 | DRG 383 ==
LOC: ER 15:19 → ED HOLD 17:33 → ORTHO 4S 20:44 → SUR 3N 08-28 16:20
PROVIDERS: ADMIT Family Medicine; ATTEND Family Medicine
PROC: 05HC33Z Insertion of Infusion Device into Left Basilic Vein, Percutaneous Approach (ICD-10-PCS; principal; 2024-08-31)
PROC: B54NZZA Ultrasonography of Left Upper Extremity Veins, Guidance (ICD-10-PCS; 2024-08-31)
DX: L03.115 Cellulitis of right lower limb (principal); I11.0 Hypertensive heart disease with heart failure; I50.32 Chronic diastolic (congestive) heart failure; S81.801A Unspecified open wound, right lower leg, initial encounter; I73.9 Peripheral vascular disease, unspecified; L03.116 Cellulitis of left lower limb; K21.9 Gastro-esophageal reflux disease without esophagitis; I25.118 Atherosclerotic heart disease of native coronary artery with other forms of angina pectoris; S81.802A Unspecified open wound, left lower leg, initial encounter; X58.XXXA Exposure to other specified factors, initial encounter; E03.9 Hypothyroidism, unspecified; G47.33 Obstructive sleep apnea (adult) (pediatric); I48.91 Unspecified atrial fibrillation; J44.9 Chronic obstructive pulmonary disease, unspecified; E66.01 Morbid (severe) obesity due to excess calories; Z79.01 Long term (current) use of anticoagulants; Z79.899 Other long term (current) drug therapy; Z90.49 Acquired absence of other specified parts of digestive tract; Z86.718 Personal history of other venous thrombosis and embolism; Z87.891 Personal history of nicotine dependence; Y93.89 Activity, other specified; Y92.89 Other specified places as the place of occurrence of the external cause; Y99.8 Other external cause status; Z68.39 Body mass index [BMI] 39.0-39.9, adult
CPT/HCPCS: 36410; 36415; 71045; 73720; 74176; 76937; 80053; 80162; 80202; 83036; 83605; 83735; 84145; 84443; 85007; 85025; 85379; 87040; 87081; 93925; 93970; 94640; 94760; 97110; 97530; 99285; A4649; A6196; A6213; A6223; A6250; A6253; A6446; A6449; C1751; G0378; J1171; J1644; J2185; J2270; J2470; J3370; J3372; J7030; J7050

== ENCOUNTER 2025-03-02 21:59 | Inpatient (IN) | payer MEDICAID ==
[~2025-03-02] VITALS: Ht 162.6 cm; Wt 105.2 kg
[~2025-03-02 21:59] MED LIST changes: -ATOR10TA70 PO; +ATOR20TA PO; -ATOR20TA66 PO; -DIGO250T4 PO; -GABA-530 PO; +GABA300C PO; -HYDR-3972 PO; -LEVO50TA8 PO; +LEVO75TA7 PO; -LINE600T14 PO; +OXYC1TAB17 PO
--- NOTE | 2025-03-02 22:23 | Physician Documentation ---
History of Present Illness Chief Complaint: Flank Pain Stated Complaint: ABD PAIN OK to notify your PCP?: Yes Primary Medical Doctor: Dr. Gorman [facility] Source: patient, RN/MD, RN notes reviewed, old records Mode of Arrival: POV Exam Limitations: no limitations HPI Patient is seen today with complaints of right-sided flank pain. Patient does admit to history of kidney stones and states this feels quite similar. Patient states pain started lately couple days ago and became much more intense today. Patient denies any fevers or chills or dysuria but states he has had dark urine possibly blood in his urine last couple of days. Patient also complains of some foot pain bilaterally. He has no other concern or complaint at this time. [facility] BED 13 This patient is a 49 y/o male BIBEMS to ED with chief complaint of abdominal pain and flank pain. Patient reports that his pain is localized to his right abdomen and radiates to his right back, 8/10 in severity, and has been worsening over the past 2-3 days. Patient states that tonight his pain significantly w orsened. He does have a history of kidney stones and states it feels like similar. Patient also complaining of his chronic cellulites, stating it is more painful, however the redness and swelling has not gotten worse. He is taking pain medication for this, and last took 1 of his oxycodone 2 hours ago with no relief of his back pain, abdominal pain, or cellulitis. Patient not followed by a urologist or a PCP. Patient denies any other associated symptoms at this time. Patient denies any other alleviating or exacerbating factors. Medication Reconciliation Allergies: Coded Allergies: No Known Drug Allergies (Verified Allergy, Unknown, 03/02/25) Scheduled Apixaban (Eliquis), 1 TAB PO Q12H, (Reported) Atorvastatin Calcium* (Lipitor*), 1 TAB PO DAILY, (Reported) Carvedilol (Carvedilol), 1 TAB PO BID, (Reported) Digoxin (Digoxin), 1 TAB PO DAILY, (Reported) Duloxetine Hcl* (Cymbalta*), 60 MG PO DAILY, (Reported) Gabapentin (Neurontin), 1 CAP PO BID, (Reported) Levothyroxine Sodium (Levothyroxine Sodium), 1 TAB PO DAILY, (Reported) Oxycodone Hcl/Acetaminophen (Oxycodone-Acetaminophen 10-325), 1 TAB PO BID, (Reported) Tiotropium [place] (Spiriva), 1 CAP INH DAILY, (Reported) Scheduled PRN Albuterol Sulfate (Ventolin Hfa), 18 GM IH Q4H PRN for SOB or wheezing, (Reported) Discontinued Medications Cyclobenzaprine HCl (Cyclobenzaprine HCl), 1 TAB PO HS, (Reported) Discontinued Reason: patient no longer taking Empagliflozin (Jardiance), 1 TAB PO DAILY, (Reported) Discontinued Reason: patient no longer taking Omeprazole (Prilosec), 1 CAP PO DAILY, (Reported) Discontinued Reason: patient no longer taking Past Medical History Past Medical History: *CARDIOVASCULAR*, Atrial Fibrillation, Hypertension, COPD, GI Bleed, Hernia, Kidney Stones, Hypothyroidism, Deep Vein Thrombosis, Cellulitis Past Surgical History: appendectomy, cholecystectomy, orthopedic surgeries, other Other Past Surgical History: varicose vein sx Patient History: Diabetes mellitus in father FATHER FH: heart failure (father) FATHER Smoking Status: Former smoker Alcohol Use: Occasionally Drug Use: none Lives with: Spouse Lives In: Home Occupation: employed Review of Systems All Other Systems at this time: Reviewed and Negative ROS As stated in the HPI above, otherwise all other systems have been reviewed and negative. Physical Exam Vital Signs: RN Vital Signs have been reviewed: Yes, Temperature: 98.8, Source: Oral, Heart Rate: 102, Respiratory Rate: 16, BP: 145/75, Pulse Oximetry: 97, Weight: 105.150 Oxygen Flow Rate: 0 Physical Exam General: The patient is well developed, well nourished, nontoxic appearing and is in no acute distress. Skin: BLE: Patient with bilateral lower extremity erythema and edema with decreased ROM of both ankles, right worse than left. Scabbing of the ankles with chronic skin changes. Otherwise rest of skin pink, warm and dry with no rashes. HEENT: Head was normocephalic and atraumatic. Eyes - pupils equal, round, reactive to light and accommodation. Extraocular movements were intact. Conjunctivae were nonicteric. The mouth and oropharynx were clear with moist mucous membranes. There were no pharyngeal exudates or erythema. Neck: Supple and nontender. There was no jugular venous distention, lymphadenopathy, thyromegaly or masses. Chest: Clear to auscultation bilaterally without wheezes, rales or rhonchi. No accessory muscle use. No dullness to percussion. Heart: Rate regular and rhythmic. S1, S2. No murmurs. Palpation of the chest wall was normal. No rubs or thrills. Abdomen: Soft, nontender and nondistended. Positive bowel sounds. No guarding or rebound. No hepatosplenomegaly or palpable masses. Back: Diffuse tenderness over the right flank. Extremities: (SEE SKIN) No cyanosis or clubbing. The patient moves all extremities. Pulses were equal and symmetric. Neurologic: Motor and sensation grossly intact. A & O x4. Psychologic: The patient was oriented to person, place and time. Progress Progress Note 0317: Paged Hospitalist 0319: Message left with on-call urologist, Dr. Wright 0343: Case discussed with hospitalist who agrees to evaluate patient for admission. Results/Orders Reviewed/noted all lab results: Yes Results/Orders Orders - RAINA RASMUSSEN PAC Ct Abdomen Pelvis (03/02/25 22:18) * Miscellaneous Nursing Orders (03/02/25 22:18) Vital Signs 03/02/25 22:07 Temp 98.8 Pulse 102 Resp 16 B/P (MAP) 145/75 Pulse Ox 97 O2 Flow Rate 0 Re-Evaluation Re-Evaluation : Re-Evaluation Time: 03:08 Re-Evaluation: Worsened Progress Patient states on re-evaluation his pain is starting to become severe again on the right side despite medications. Will notify on-call urologist, Dr. Wright and admit patient. Dr. Wright received a text message at 6:00 a.m.. We responded and was presented the case he will review the studies and evaluate the patient patient continues to have some pain. Patient however was also admitted because he is having skin grafts that seemed to be failing favors chronic skin changes he states they are much more red and developing cellulitis. Antibiotics were admitted he received vancomycin as well as vancomycin. Patient initially received Dilaudid for his pain he was in pretty significant pain and received high dose medications. Later pain returned received Toradol and had some transient improvement pain returned and received another dose of Dilaudid. At that point in time he was then admitted to the hospitalist service for inpatient management both of his chronic renal pain as well as is infectious cellulitic legs bilaterally. Laboratory work was obtained sed rate is normal at 14 CBC also did not show any leukocytosis with a normal WBC of 9.5. Chemistry also showed negative procalcitonin patient's electrolytes were within normal limits magnesium 2.4 C-reactive protein is negative patient's urinalysis showed some hematuria but no signs of infection. Continuous registered nurse cardiac interpretation shows sinus tachycardia heart rate 100, abnormal, my interpretation. Pulse oximetry monitor interpretation shows normal oxygenation 97% room air, normal, my interpretation. EKG/XRAY/CT/US/VASC/MRI Bone/Soft Tissue X-Ray (Ext.) : Interpreted By: both Additional Comment [address] [address] DIAGNOSTIC RADIOLOGY Patient: CHAVEZ GIBBS Medical Record: [id number] [facility] : 1975, Age: 49 Sex: Male Location: ER Patient Status: REG ER Service Date/Time: 03/03/2529 Ordering Physician: YAA MITCHELL MD Exam: ANKLE, COMPLETE(3VW MIN) CLINICAL INDICATION: pain RIGHT TECHNIQUE: DI ANKLE, COMPLETE(3VW MIN) Comparison: MR MRI LOWER EXTREMITY LEFT on DOS: 08/27/24, MR MRI LOWER EXTREMITY RIGHT on DOS: 08/27/24, DI TIB/FIB 2 VWS on DOS: 08/05/23 FINDINGS/IMPRESSION: : There is no evidence of acute fracture or dislocation. Subcutaneous edema in the distal right lower extremity. There are numerous calcifications which appear to be in the skin or superficial soft tissues of the distal right lower extremity. Electronically Signed by:AYO MILLER MD Date & Time: 03/03/25 005 Dictated by: AYO MILLER MD Dictation date and time: 03/03/25 0050 Primary Care Provider: NO PRIMARY CARE PROVIDER cc: YAA MITCHELL MD ~ EDMD DR MITCHELL REVIEWED IMAGING AND AGREES WITH ABOVE FINDINGS CT : Interpreted By: both CT: abdomen/pelvis With Contrast?: No Impression [address] [address] CAT SCAN Patient: CHAVEZ GIBBS Medical Record: [id number] [facility] : 1975, Age: 49 Sex: Male Location: ER Patient Status: [facility] ER Service Date/Time: 03/02/252209 Ordering Physician: RAINA RASMUSSEN PAC Exam: CT ABDOMEN PELVIS CLINICAL HISTORY: right flank pain Renal stone rule out TECHNIQUE: CT of the abdomen and pelvis was performed without IV contrast. This exam was performed according to our departmental dose optimization program. Up-to-date CT equipment and radiation dose reduction techniques are utilized as appropriate. CTDI 34.1 DLP 1844.0 COMPARISON: CT CT ABDOMEN PELVIS on DOS: 11/05/23 FINDINGS: Abdomen/Pelvis: The spleen, pancreas, adrenal glands, left kidney, and prostate gland are grossly remarkable. There is borderline diffuse hepatic steatosis. The gallbladder is absent. There is a 8 mm nonobstructing right renal calculus. The bladder is not well distended and therefore not well evaluated. The abdominal aorta is normal in course and caliber. There are no significant atherosclerotic calcifications. There is no free intraperitoneal air or fluid. There is no enlarged abdominal pelvic lymph node. There is no bowel wall thickening or dilatation. The appendix is absent. Other: The imaged lower thorax is unremarkable. No acute osseous abnormality is evident. Impression: No acute noncontrast CT abnormality of the abdomen / pelvis. Nonobstructing right renal calculus. Cholecystectomy. Appendectomy. Electronically Signed by:WILD RODRIGUEZ MD Date & Time: 03/02/252256 Dictated by: WILD RODRIGUEZ MD Dictation date and time: 03/02/252256 Primary Care Provider: NO PRIMARY CARE PROVIDER cc: RAINA RASMUSSEN PAC ~ EDMD DR MITCHELL REVIEWED IMAGING AND AGREES WITH ABOVE FINDINGS Medical Decision Making Additional info obtained from: old records Differential Dx:Considerations: Include: AAA, Angina/DC, Aortic dissection, Appendicitis, Bowel obstruction, Cholangitis, Cholelithasis, Constipation, Div erticular disease, Esophageal rupture, Esophagitis, Gastritis/PUD, Gastroenteritis, GI hemorrhage, Hernia, Inflammatory BD, Ischemic bowel, Pancreatitis, Urinary tract infection, Urolithiasis, Other Departure Time of Disposition: 03:05 Disposition: ADMITTED INPATIENT Admitted to Inpatient Unit: yes, to hospitalist Admission Level of Care: Med/Surg Impression: Primary Impression: Renal colic on right side Additional Impressions: Right ankle pain Qualified Codes: M25.571 - Pain in right ankle and joints of right foot; G89.29 - Other chronic pain Bilateral cellulitis of lower leg Intractable abdominal pain Condition: Guarded Referrals: KADEN WRIGHT MD Education Educated: Patient Educated regarding: diagnosis Signature Scribe Signature: Scribed for Yaa Mitchell MD by Mckayla Velasquez 03/03/25 00:15 Attestation: The note accurately reflects work and decisions made by me.Yaa Mitchell MD 03/03/25 03:00 RAINA RASMUSSEN PAC Mar 02, 2025 22:23 YAA MITCHELL MD Mar 03, 2025 00:15
[2025-03-02 22:49] LABS: MEAN PLATELET VOLUME 6.5 FL (7.4-10.4); RED CELL DISTRIBUTION WIDTH 20.0 % (11.5-14.5)
--- NOTE | 2025-03-02 22:59 | RADIOLOGY REPORT ---
CLINICAL HISTORY: right flank pain Renal stone rule out TECHNIQUE: CT of the abdomen and pelvis was performed without IV contrast. This exam was performed ac cording to our departmental dose optimization program. Up-to-date CT equipment and radiation dose red uction techniques are utilized as appropriate. CTDI 34.1 DLP 1844.0 COMPARISON: CT CT ABDOMEN PELVIS on DOS: 11/05/23 FINDINGS: Abdomen/Pelvis: The spleen, pancreas, adrenal glands, left kidney, and prostate gland are grossly remarkable. There is borderline diffuse hepatic steatosis. The gallbladder is absent. There is a 8 mm nonobstructing right renal calculus. The bladder is not well distended and therefore not well evaluated. The abdominal aorta is normal in course and caliber. There are no significant atherosclerotic calcifi cations. There is no free intraperitoneal air or fluid. There is no enlarged abdominal pelvic lymph node. There is no bowel wall thickening or dilatation. The appendix is absent. Other: The imaged lower thorax is unremarkable. No acute osseous abnormality is evident. Impression: No acute noncontrast CT abnormality of the abdomen / pelvis. Nonobstructing right renal calculus. Cholecystectomy. Appendectomy.
[2025-03-02 23:08] LABS: CREATININE 0.84 MG/DL (0.60-1.10); PRO BRAIN NATRIURETIC PEPTIDE 423 PG/ML (0-125); TOTAL CARBON DIOXIDE 28.1 MMOL/L (24-32); eCRCL 91 ML/MIN; eGFR > 90 ML/MIN
[2025-03-03] VITALS (8 sets, daily range): BP systolic 113–145; BP diastolic 54–122; PULSE 77–120; RESP 14–24; TEMP 98.2–98.5; O2SAT 96–99
--- NOTE | 2025-03-03 00:40 | ELECTROCARDIOGRAPH REPORT ---
[facility] Test Date: 2025-03-03 Test Time: 00:39:08 Pat Name: CHAVEZ GIBBS Department: EMERGENCY ROOM [id number] Room: Gender: M Pollution Control Engineer: SEDRICK : 1975 Requested By: YAA SHELL Order Number: [id number] Reading MD: Dr. Yaa Shell Measurements Intervals [place] Rate: 84 P: 74 CO: 157 QRS: 110 QRSD: 103 T: 261 QT: 362 QTc: 428 Interpretive Statements Sinus rhythm Probable left atrial enlargement Right axis deviation Abnormal T, consider ischemia, diffuse leads Electronically Signed On 03-03-2025 3:50:[address] Yaa Shell Please click the below link to view image of tracing.
--- NOTE | 2025-03-03 00:52 | RADIOLOGY REPORT ---
CLINICAL INDICATION: pain RIGHT TECHNIQUE: DI ANKLE, COMPLETE(3VW MIN) Comparison: MR MRI LOWER EXTREMITY LEFT on DOS: 08/27/24, MR MRI LOWER EXTREMITY RIGHT on DOS: 08/27/24 , DI TIB/FIB 2 VWS on DOS: 08/05/23 FINDINGS/IMPRESSION: : There is no evidence of acute fracture or dislocation. Subcutaneous edema in the distal right lower extremity. There are numerous calcifications which appear to be in the skin or superficial soft tissues of the d istal right lower extremity.
[2025-03-03 01:24] LABS: LEUKOCYTE ESTERASE ,URINE NEGATIVE (Neg); NITRITES, URINE NEGATIVE (Neg); OCCULT BLOOD,URINE LARGE (Neg); UA COLLECTION TYPE CLN CATCH MIDSTREAM
[2025-03-03 01:40] LABS: AMORPHOUS URATES 4+
[2025-03-03 01:41] LABS: MUCUS STRANDS MODERATE /LPF (Neg); SQUAMOUS EPITHELIAL CELL,UR FEW /LPF (FEW)
[2025-03-03 01:45] LABS: PRO BRAIN NATRIURETIC PEPTIDE 424 PG/ML (0-125)
[2025-03-03] MEDS ORDERED: VANCOMYCIN 1GM 200ML H20 (PEG) 200 ML IV ONE (03:15)
[2025-03-03] MEDS: ketorolac trometh 30MG/ML vial 30 MG/ML VIAL IV ONE (03:46)
[2025-03-03] MEDS: CefTRIAXone/D5W-Rocephin 1gm 50 ML IV ONE (03:49)
--- NOTE | 2025-03-03 04:25 | HISTORY AND PHYSICAL-Residence ---
History & Physical Providers to CC Resident Creating Document: LEXIMARI ANGEL, MONICA ~ History of Present Illness Primary Medical Doctor: Clifford [facility]iker[facility] Reason for Admit\Complaint: right flank pain, cellulitis of lower extremities. History of Present Illness 49-year-old male past medical history of AFib, COPD has presented to the ED with complaints of right flank pain and heaviness in the lower extremities. Patient reports that he has been experiencing right flank pain since 3-4 days, which was progressively increasing, got to a point where he could not bear the pain today. Stabbing type of pain radiating to the right groin, 4/10 in intensity associated with nausea. Patient complains of no vomiting and fever. Patient also complaining of sense of heaviness in his feet most likely from his cellulitis . Patient reports that the issue of cellulitis began four years ago when a small blister was formed and got infected. He also reports of having a skin graft surgery three months ago in his feet for open wounds. Patient denies any complaints of chest pain , shortness of breath, palpitations, headache, abdominal pain, burning micturition, cough, melena. Allergies: Coded Allergies: No Known Drug Allergies (Verified Allergy, Unknown, 03/02/25) Home Medications Home Medications Active Reported Ventolin Hfa (Albuterol Sulfate) 90 Mcg Hfa.aer.ad 18 Gm IH Q4H PRN Spiriva (Tiotropium [place]) 18 Mcg Cap.w.dev 1 Cap INH DAILY Lipitor* (Atorvastatin Calcium) 20 Mg Tablet 1 Tab PO DAILY Eliquis (Apixaban) 5 Mg Tablet 1 Tab PO Q12H Neurontin (Gabapentin) 300 Mg Capsule 1 Cap PO BID Levothyroxine Sodium 75 Mcg Tablet 1 Tab PO DAILY Oxycodone-Acetaminophen 10-325 (Oxycodone Hcl/Acetaminophen) 10 Mg-325 Mg Tablet 1 Tab PO BID Digoxin 125 Mcg (0.125 Mg) Tablet 1 Tab PO DAILY Carvedilol 12.5 Mg Tablet 1 Tab PO BID Cymbalta* (Duloxetine HCl) 30 Mg Capsule. 60 Mg PO DAILY Past Medical History Past Medical History AFib COPD Past Surgical History Surgical History Comment Skin graft for cellulitis of feet Cholecystectomy Appendectomy Family History Family History: Diabetes mellitus in father FATHER FH: heart failure (father) FATHER Past Social History Social History Comment Patient quit smoking two years ago before which he smoked for 20 years one pack per day. Drinks alcohol socially. No illicit drug use. Patient was homeless for a long time but now lives with his mother at home. Currently not employed. Smoking: Quit greater than 1 year Alcohol Use: Occasionally Drug Use: None Lives with: Spouse Lives In: Home Occupation: employed ROS All Other Systems: Reviewed and Negative ROS All Other Systems: Reviewed and Negative Constitutional: Reports: Right lateral foot pain Eyes: Reports: no symptoms reported ENT: Reports: no symptoms reported Respiratory: Reports: No symptoms reported Cardiovascular: Reports: no symptoms reported Gastrointestinal: Reports: no symptoms reported Genitourinary: Reports: Pain in the right flank area radiating to the groin Male Genitalia: Reports: no symptoms reported Neurological: Reports: no symptoms reported Musculoskeletal: Reports: no symptoms reported Integumentary: Reports: no symptoms reported Allergic/Immunologic: Reports: no symptoms reported Hematologic/Lymphatic: Reports: no symptoms reported Endocrine: Reports: no symptoms reported Psychiatric: Reports: no symptoms reported Exam Vitals: Vital Signs Date Time Temp Pulse Resp B/P (MAP) Pulse Ox O2 Delivery O2 Flow Rate FiO2 03/03/25 03:50 98.3 87 15 124/72 (89) 94 0 General: General: Alert, awake, oriented to time, person, place. Not in acute distress HEENT: Conjunctiva pink, Sclera clear, Mucus Membranes moist. Neck: Supple without masses and tenderness. Resp: Normal vesicular breath sounds heard . No wheezing Heart: Regular Rate and rhythm, normal S1 and S2 without murmur, rub or gallop. Abdomen: Soft and mildly tender in the right flank area Extremities: Lower feet swollen and red. well demarcation of cellulitis seen. Skin: Warm and Dry. Abrasions present in Lower feet. Diagnostic Data Last Recorded Lab Results: 03/02/25224003/[id number] Additional Plan Assessment- 49-year-old male has come with chief complaints of right flank pain and pain in the lower feet due to cellulitis. Nonobstructing right renal calculus Right flank pain CT shows 8 mm right renal calculus. Urine analysis-urine occult blood positive. No signs of hydronephrosis. No fever. No signs of SHAUNA. Treating with fluids NS 150mls/hr Started tamsulosin 0.4 mg HS po Consult with Urology in the a.m. Cellulitis of lower feet- WBC not elevated Procal not elevated CRP not elevated Ordered ESR, lactic acid. Follow up Started vancomycin Code Status: Full code DVT prophylaxis: Heparin Analgesia/sedation: Morphine Line/tube: PIV GI prophylaxis: None Nutrition: Regular diet Physical therapy: Yes Prognosis: Guarded Mari Reddijose PGY-1 Plan reviewed with bedside team. Patient seen through remote audiovisual assessment through HIPAA compliant setup. All labs, flowsheets, and images reviewed Cumulative nonprocedural care time spent in directed patient care = 30 min Date of Service: Mar 03, 2025 Billing Provider: ERICA WHEELER MD,MARI, RES Mar 03, 2025 04:25 ERICA WHEELER MD Mar 03, 2025 07:11
[2025-03-03] MEDS: VANCOMYCIN 2GM/400ML H20 (PEG) 400 ML IV ONE ×2 (04:35→04:36)
[2025-03-03] MEDS ORDERED: magnesium hydroxide 30ml (MOM) UD suspension PO PRN (04:45)
[2025-03-03] MEDS ORDERED: magnesium sulf-water 4G/100mL 100 ML IV PRN (04:45)
[2025-03-03] MEDS ORDERED: HYDROcodone/acetaminophen 5mg/325mg tablet PO PRN (04:45)
[2025-03-03] MEDS ORDERED: magnesium Cl slow-release 64mg tablet PO PRN (04:45)
[2025-03-03] MEDS ORDERED: potassium Cl 20 mEq SR tablet PO PRN ×2 (04:45)
[2025-03-03] MEDS ORDERED: magnesium sulf-water 2g/50mL 50 ML IV PRN (04:45)
[2025-03-03] MEDS ORDERED: potassium Cl 40MEQ/1/2NS 520ml 520 ML IV PRN (04:45)
[2025-03-03] MEDS: normal saline 1000ml 1,000 ML IV SCH (06:37)
[2025-03-03] MEDS: K and/or MAG REPLACEMENT MC SCH (08:00)
[2025-03-03] MEDS: heparin, porcine 5000 units/ml vial SQ SCH (08:28)
[2025-03-03] MEDS: docusate sod 100mg capsule PO SCH (08:28)
--- NOTE | 2025-03-03 09:35 | ELECTROCARDIOGRAPH REPORT ---
[facility] Test Date: 2025-03-03 Test Time: 09:34:30 Pat Name: CHAVEZ GIBBS Department: EMERGENCY ROOM Room: ED 13 1 Gender: M Executive Assistant: CLAUDIO : 1975 Requested By: YAA SHELL Order Number: [id number] Reading MD: Measurements Intervals [place] Rate: 109 P: 86 TX: 150 QRS: 113 QRSD: 102 T: -80 QT: 300 QTc: 405 Interpretive Statements Sinus tachycardia Probable left atrial enlargement Right axis deviation Nonspecific T abnormalities, diffuse leads Please click the below link to view image of tracing.
[2025-03-03 10:03] LABS: MEAN PLATELET VOLUME 6.5 FL (7.4-10.4); RED CELL DISTRIBUTION WIDTH 19.5 % (11.5-14.5)
[2025-03-03] MEDS ORDERED: albuterol 2.5 MG/3 ML nebule NEB PRN (10:20)
[2025-03-03] MEDS ORDERED: ipratropium/albuterol 3ml nebule NEB PRN (10:20)
[2025-03-03 10:29] LABS: PRO BRAIN NATRIURETIC PEPTIDE 334 PG/ML (0-125)
[2025-03-03 10:37] LABS: PLATELET ESTIMATE NORMAL
[2025-03-03] MEDS: morphine 4 MG/ML inj SYRINge IV ONE ×2 (10:42→14:51)
[2025-03-03 10:56] LABS: CREATININE 1.04 MG/DL (0.60-1.10); TOTAL CARBON DIOXIDE 23.3 MMOL/L (24-32); eCRCL 74 ML/MIN; eGFR 77 ML/MIN
[2025-03-03] MEDS: ondansetron/PF 4mg/2ml inj IV PRN (12:07)
[2025-03-03] MEDS: digoxin 125mcg (0.125mg) tablet PO SCH (12:14)
[2025-03-03] MEDS: duloxetine 30mg CAPSULE.DR PO SCH (12:15)
[2025-03-03] MEDS: levoTHYROXINE 75mcg tablet PO SCH (12:15)
--- NOTE | 2025-03-03 12:31 | RADIOLOGY REPORT ---
Indication: cp, sob, tachy Technique: CT axial images of the abdomen and pelvis are obtained with intravenous contrast. Coronal and sagittal reformats were obtained. Radiation Dose Information: CTDI volume is 22 mGy. Dose-length product is 882 mGy*cm Comparison: CT CTA CHEST PE on DOS: 11/04/23 FINDINGS: No filling defect within the main left right pulmonary arteries. The trachea is patent. No pneumothorax. No pulmonary airspace consolidation. Heart normal in size. No supraclavicular, axillary lymphadenopathy. Esophageal distention. Esophageal wall thickening. Spleen measures 13 cm AP. Cholecystectomy. Hepatic steatosis. Nonobstructing right renal calculus m easuring 8 mm. No aggressive osseous process. IMPRESSION: No evidence for large pulmonary embolism. Esophageal wall thickening and distention. Recommend GI consultation to evaluate for esophagitis and other etiologies. Splenomegaly. Nonobstructing right renal calculus. Other findings as described.
[2025-03-03 12:35] LABS: CHOL/HDL RATIO 6.6 (0.00-4.99); LDL CHOLESTEROL 83 MG/DL (50-100)
--- NOTE | 2025-03-03 12:39 | RADIOLOGY REPORT ---
CLINICAL INDICATION: Bilateral wounds/ s/p skin grafts. TECHNIQUE: Noncontrast CT of the right and left leg was performed. Sagittal and coronal reformatted i mages are provided. COMPARISON: DI ANKLE, COMPLETE(3VW MIN) on DOS: 03/03/25, MR MRI LOWER EXTREMITY LEFT on DOS: 08/27/24, MR MRI LOWER EXTREMITY RIGHT on DOS: 08/27/24 CT Dose: CTDI volume is 17.8 mGy. Dose-length product is 1719.6 mGy*cm FINDINGS: No fracture or dislocation. No cortical disruption. No periosteal reaction. Bilateral hip joint spac es are maintained. There is subcutaneous edema in the lateral lower leg just below the knee joints bilaterally. There i s also medial subcutaneous edema and left greater than right skin thickening at the level of both ank le joints. No fluid collection. Mildly prominent bilateral inguinal lymph nodes. Bilateral fat containing inguinal hernias. IMPRESSION: 1. Subcutaneous edema in both lower extremities, as described. 2. No acute osseous abnormality. All CT scans at this medical facility are performed using dose modulation techniques as appropriate t o a performed exam including the following: Automated exposure control was utilized; adjustment of th e MA and/or KV according to patient size; and use of iterative reconstruction technique.
[2025-03-03] MEDS ORDERED: vancomycin/NS 1 GM ADD-VANTAGE 250 ML IV SCH (13:00)
[2025-03-03 13:38] LABS: APTT 28 SECONDS (22-32); INR 1.1 INR
[2025-03-03] MEDS: levoFLOXACIN-Levaquin 500mg/D5 100 ML IV SCH (13:42)
[2025-03-03] MEDS: diltiazem 5mg/ml 5ml inj. IV ONE (13:55)
--- NOTE | 2025-03-03 18:15 | CARDIOLOGY REPORT ---
APPROVED REPORT EXAM: Comprehensive 2D, Doppler, and color-flow Echocardiogram. Patient Location: [facility] Blood Pressure: 117/64 mmHg Heart Rate: 122 bpm Indications Abnormal EKG Chest Pain (5/10 - radiating to Left neck and jaw) ProBNP: 334 HX of Atrial Fibrillation Hypertension COPD STRIP POLISHER: Javier Bang MD [facility] ECHO: 07/06/24, [facility], EF: 75-80; m RVE; sev LAE; m TR 2D Dimensions LA Diam4.1 cm IVSd 1.6 (0.7-1.1cm) LVDd 4.2 cm PWd 1.5 (0.7-1.1cm) IVSs 1.8 (0.8-1.2cm) LVDs 2.5 (2.5-4.0cm) PWs 1.5 (0.8-1.2cm) LVOT Diameter 1.88 (1.8-2.4cm) LVEF(%) 70.4 (>50%) Ao Asc Diam.2.55 cm IVC 15.43 mmFS (%) 39.5 % SV 54.3 ml CO 6.6 L/min M-Mode Dimensions Left Atrium(MM) 4.16 (2.5-4.0cm) Aortic Root 2.61 (2.2-3.7cm) Aortic Cusp Exc 1.79 (1.5-2.0cm) MV EPSS 0.1 (<0.5cm) Aortic Valve AoV Peak Hector. 239.0 cm/s AoV VTI 32.0 cm AO Peak GR. 22.8 mmHg AO Mean GR. 12 mmHg LVOT VTI 23.44 cm LVOT Peak Hector. 121.3 cm/s MELYSSA(VTI)/BSA 2.03 cm2/m2 MELYSSA (VTI) 2.03 cm2 Mitral Valve MV E Velocity 56.5 cm/s MV Peak Gr. 6 mmHg MV DECEL TIME 96 ms MV A Velocity 109.7 cm/s MV PHT 56 ms E/A Ratio 0.5 MVA (PHT) 3.93 cm2 MV VQzi448.3 cm/s TDI Lateral E' P. V8.72 cm/s E/Lateral E' 6.5 Tricuspid Valve TR P. Velocity 187 cm/s RAP ESTIMATE 10 mmHg TR Peak Gr. 14 mmHg RVSP 24 mmHg LEFT VENTRICLE Normal LV size with hyperdynamic function. Moderate concentric hypertrophy. Intra-cavitary gradient i s present with resting velocity of 30 mmHg increasing to 55 mmHg. Overall LVEF is 75%. RIGHT VENTRICLE Right ventricle is mildly dilated with adequate function. ATRIA Left atrium is mildly dilated. AORTIC VALVE Trileaflet AV appears mildly sclerotic without stenosis. No insufficiency. MITRAL VALVE Mild mitral annular calcification without stenosis. Trace regurgitation. TRICUSPID VALVE The tricuspid valve is normal in structure with trace regurgitation. PULMONIC VALVE Pulmonic valve is grossly normal in structure with physiologic insufficiency. GREAT VESSELS The aortic root is normal in size. The ascending aorta is normal in size. The IVC is normal in size a nd collapses >50% with inspiration. PERICARDIUM Normal pericardium. No effusion. Other Information Study Quality: Adequate Conclusion Overall LVEF is 75%. Normal LV size with hyperdynamic function. Moderate concentric hypertrophy. Intra-cavitary gradient is present with resting velocity of 30 mmHg increasing to 55 mmHg. Right ventricle is mildly dilated with adequate function. Trileaflet AV appears mildly sclerotic without stenosis. No insufficiency. Mild mitral annular calcification without stenosis. Trace regurgitation. The tricuspid valve is normal in structure with trace regurgitation. Pulmonic valve is grossly normal in structure with physiologic insufficiency. Normal pericardium. No effusion.
[2025-03-03] MEDS ORDERED: morphine 4 MG/ML inj SYRINge IV PRN (19:00)
--- NOTE | 2025-03-03 19:19 | VASCULAR REPORT ---
CLINICAL HISTORY: Bilateral leg swelling, redness, heaviness TECHNIQUE: Color and duplex doppler imaging of the bilateral lower extremity veins was performed. Ves evon compression if possible was also performed. WID: COMPARISON: VASC VL VENOUS on DOS: 08/25/24 FINDINGS: Right Lower Extremity: Right common femoral vein: Normal compressibility and flow. Right femoral vein: Normal compressibility and flow. Right popliteal vein: Normal compressibility and flow. Proximal calf veins are normally compressible. Left Lower Extremity: Left common femoral vein: Normal compressibility and flow. Left femoral vein: Normal compressibility and flow. Left popliteal vein: Normal compressibility and flow. Proximal calf veins are normally compressible. IMPRESSION: 1. NO SONOGRAPHIC EVIDENCE FOR DEEP VENOUS THROMBOSIS IN THE BILATERAL LOWER EXTREMITY VEINS.
[2025-03-03] MEDS: HYDROcodone/acetaminophen 10/325mg tab PO PRN (20:11)
[2025-03-04] VITALS (15 sets, daily range): BP systolic 111–134; BP diastolic 53–77; PULSE 62–107; RESP 14–20; TEMP 97.6–98.4; O2SAT 94–99
[2025-03-04] MEDS ORDERED: VANCOMYCIN LEVEL IV ONE (04:30)
[2025-03-04 06:32] LABS: MEAN PLATELET VOLUME 7.0 FL (7.4-10.4); RED CELL DISTRIBUTION WIDTH 20.0 % (11.5-14.5)
[2025-03-04] MEDS: aspirin 81mg, enteric-coated 1 TAB TABLET.DR PO SCH (08:14)
[2025-03-04 08:42] LABS: EOSINOPHILS % (MANUAL) 8.0 % (0-6); LYMPHOCYTES % (MANUAL) 18.0 % (21-51); MONOCYTES % (MANUAL) 13.0 % (2-12); NEUTROPHILS % (MANUAL) 61.0 % (42-75); PLATELET ESTIMATE NORMAL
[2025-03-04] MEDS ORDERED: albuterol 2.5 MG/3 ML nebule NEB PRN (11:00)
[2025-03-04] MEDS: ipratropium/albuterol 3ml nebule NEB SCH (11:40)
[2025-03-04 11:44] LABS: CREATININE 0.85 MG/DL (0.60-1.10); TOTAL CARBON DIOXIDE 24.5 MMOL/L (24-32); eCRCL 90 ML/MIN; eGFR > 90 ML/MIN
[2025-03-04 13:29] LABS: URINE AMPHETAMINE SCREEN NEGATIVE (Neg); URINE BARBITUATE SCREEN NEGATIVE (Neg); URINE BENZODIAZEPINES SCREEN NEGATIVE (Neg); URINE CANNABINOID SCREEN NEGATIVE (Neg); URINE COCAINE SCREEN NEGATIVE (Neg); URINE METHADONE SCREEN NEGATIVE (Neg); URINE OPIATE SCREEN POSITIVE (Neg); URINE PHENCYCLIDINE SCREEN NEGATIVE (Neg)
--- NOTE | 2025-03-04 14:58 | PROGRESS NOTE- Residence ---
Progress Note - Resident Providers to CC Resident Creating Document: KVNG CASTELLANOS CC: YUKO BELLE MD ~ Antibiotic Timeout Antibiotic Ordered?: Yes Subjective Patient was seen and examined at bedside today. Patient continues to complain of significant right flank pain. He also reports some chest pain. Objective Vital Signs Date Time Temp Pulse Resp B/P (MAP) Pulse Ox O2 Delivery O2 Flow Rate FiO2 03/04/25 12:15 16 03/04/25 11:45 99 Room Air 0.0 03/04/25 11:43 99 21 03/04/25 06:00 97.9 134/77 (96) Result Diagram: 03/04/25 0520 03/04/25 0520 General: awake, alert oriented to place, time, and person HEENT: No pallor present, no icterus, moist mucous membranes Neck: No masses and tenderness Resp: Unlabored. Lungs clear to auscultation bilaterally. Chest: Normal expansion Cardiovascular: Regular Rate and rhythm, normal S1 and S2 without murmur, rub or gallop Abdomen: Soft and significantly tender to superficial palpation in right flank, lumbar spine and left costovertebral fossa are also significantly tender, no organomegaly, no guarding and rigidity, bowel sounds present Neuro: No focal weakness in the upper and lower limb muscles, power of the muscles 5/5 bilateral upper and lower extremities, normal reflexes bilaterally. Cranial nerves intact Extremities: Chronic ectatic changes in lower extremities with some crusting. No cyanosis,clubbing or edema Skin: Warm and Dry. As above Psych: Normal affect Coagulation Studies Laboratory Tests Test 03/03/25 13:10 Prothrombin Time 10.9 SECONDS (9.0-12.0) INR International Normalized Ratio 1.1 INR Activated Partial Thromboplast Time 28 SECONDS (22-32) Coagulation Comments Plan Plan Nonobstructing right renal calculus Right flank pain Possible component of lumbar radiculopathy/neuropathic pain CT shows 8 mm right renal calculus Urine analysis-urine occult blood positive. No signs of hydronephrosis. No fever. No signs of SHAUNA. Will decrease IV fluids to 75 cc/hour Continue tamsulosin 0.4 mg HS po Continue pain management Cellulitis of lower feet Chronic lower extremity wounds Labs are unremarkable On levofloxacin, day 2 Hypothyroidism Continue levothyroxine 75 mcg daily CAD Atrial fibrillation, rate controlled Continue baby aspirin daily Resume apixaban Continue Coreg 12.5 mg daily, digoxin 125 mcg daily COPD, not in exacerbation DuoNebs q.4 PRN Peripheral neuropathy Continue duloxetine, gabapentin Prediabetes A1c 6.0 Continue monitoring blood glucose Hypertriglyceridemia Trig: >400 He may benefit from fibrates Code Status: Full code DVT prophylaxis: Eliquis Analgesia/sedation: Morphine Line/tube: PIV GI prophylaxis: None Nutrition: Regular diet Prognosis: Guarded Disposition: Continue care in ortho floor. Possible discharge tomorrow Kvng Aguayo MD Internal Medicine Resident PGY-2 Date of Service: Mar 04, 2025 Billing Provider: YUKO BELLE MD, LEONARDO LUIS Mar 04, 2025 14:58
--- NOTE | 2025-03-04 16:03 | ELECTROCARDIOGRAPH REPORT ---
[facility] Test Date: 2025-03-04 Test Time: 14:42:53 Pat Name: CHAVEZ GIBBS Department: 3rd FLOOR PCU Room: [place] [address] A Gender: M Pier Hand: CHRISTIAN : 1975 Requested By: YUKO BELLE Order Number: [id number] Reading MD: Dr. SHERRILL Velázquez Measurements Intervals [place] Rate: 92 P: 71 HI: 159 QRS: 113 QRSD: 105 T: -88 QT: 357 QTc: 442 Interpretive Statements Sinus rhythm Right axis deviation Abnormal T, consider ischemia, diffuse leads Electronically Signed On 03-04-2025 17:03:[address] SHERRILL Velázquez Please click the below link to view image of tracing.
[2025-03-04] MEDS: mag hydrox/Alum hydrox/simeth 30ml oral suspension PO PRN (21:56)
[2025-03-05] VITALS (15 sets, daily range): BP systolic 111–123; BP diastolic 68–69; PULSE 80–100; RESP 14–20; TEMP 98.1–98.6; O2SAT 95–99
[2025-03-05 06:02] LABS: MEAN PLATELET VOLUME 7.1 FL (7.4-10.4); RED CELL DISTRIBUTION WIDTH 19.6 % (11.5-14.5)
[2025-03-05 06:27] LABS: CREATININE 0.66 MG/DL (0.60-1.10); TOTAL CARBON DIOXIDE 26.0 MMOL/L (24-32); eCRCL 116 ML/MIN; eGFR > 90 ML/MIN
[2025-03-05 07:09] LABS: BANDS% (MANUAL) 1.0 % (0-10); EOSINOPHILS % (MANUAL) 6.0 % (0-6); LYMPHOCYTES % (MANUAL) 28.0 % (21-51); METAMYLEOCYTES% (MANUAL) 2.0 % (0-0); MONOCYTES % (MANUAL) 12.0 % (2-12); NEUTROPHILS % (MANUAL) 51.0 % (42-75); PLATELET ESTIMATE NORMAL
[2025-03-05] MEDS ORDERED: LACT1CAP26 PO (13:18)
[2025-03-05] MEDS ORDERED: tamsulosin capsule PO (13:18)
[2025-03-05] MEDS ORDERED: ASPI-1071 PO (13:18)
[2025-03-05] MEDS ORDERED: PANT-47 PO (13:18)
[2025-03-05] MEDS ORDERED: LEVO-65 PO (13:18)
[2025-03-05] MEDS ORDERED: ATOR20TA PO (13:18)
--- NOTE | 2025-03-05 19:43 | DISCHARGE SUMMARY-Residence ---
Discharge Summary Providers to CC Resident Creating Document: RED ALEXANDRE RES ~ Discharge Summary Admission Diagnosis: possible cellulitis, flank pain Hospital Course DATE OF ADMISSION: 03/03/2025 DATE OF DISCHARGE: 03/05/2025 As in HPI: 49-year-old male past medical history of AFib, COPD has presented to the ED with complaints of right flank pain and heaviness in the lower extremities. Patient reports that he has been experiencing right flank pain since 3-4 days, which was progressively increasing, got to a point where he could not bear the pain today. Stabbing type of pain radiating to the right groin, 4/10 in intensity associated with nausea. Patient complains of no vomiting and fever. Patient also complaining of sense of heaviness in his feet most likely from his cellulitis . Patient reports that the issue of cellulitis began four years ago when a small blister was formed and got infected. He also reports of having a skin graft surgery three months ago in his feet for open wounds. Patient denies any complaints of chest pain , shortness of breath, palpitations, headache, abdominal pain, burning micturition, cough, melena. During the hospital stay, he was treated for intractable right abdominal and flank pain which was likely due to nonobstructive right renal calculus. He received good IV hydration and pain medications. Urinalysis also showed occult blood. CT showed 8 mm right renal calculus without any signs of hydronephrosis. He was also started on Levaquin for possible bilateral lower extremity cellulitis. Lower extremity CT ruled out any signs of cellulitis. He recently got skin grafts done for his chronic nonhealing wounds about 4-5 months back. Today, his pain is well controlled and stable to be discharged back to home. General: Alert and oriented x 4 HEENT: Normocephalic and atraumatic. Pupils equal round and reactive to light and accommodation. Extraocular movements intact. Oral and nasal mucosa moist Neck: Trachea is in midline. No masses or JVD Lungs: Bilateral normal breath sounds. No crackles, rhonchi or wheezes Heart: Controlled rate rate and irregular rhythm. No rubs or murmurs Abdomen: Soft, nontender and nondistended. Bowel sounds present. Mild bilateral costovertebral angle tenderness which could be from CELL TENDER: No gross sensory or motor abnormalities Extremities: No cyanosis, clubbing or edema. Erythema around bilateral ankles which is chronic with no open wounds but with some crusting Skin: Warm and dry On 03/05/2025, I called his sister-Ms. Florinda Moore at [phone] and asked to check if he has any pain medications left at home as he takes Percocet 10/325 mg b.i.d. at home. I do not have his number on the EMR and so I called his sister. She said she will call me back but I did not get a call back. On 03/06/2025, Nurse Bang got a call from the patient asking for pain medications. Dr. Rivera sent Percocet 10/325 mg q.i.d. p.r.n. for pain-14 tabs. Nurse also mentioned that his tamsulosin could not be called in to the pharmacy as pharmacy was changed yesterday after a transmitted with the medications. So, I sent tamsulosin 0.4 mg p.o. daily-30 tabs for 30 days to pharmacy. I called the sister at the same number and asked her to inform the patient as I do not have the patient's number and nurse Bang who answered the call is done with the shift for the day and is not available in the hospital. Red Alexandre MD Internal Medicine Resident, PGY 3 Discharge Diagnosis\Comment: Right flank pain likely due to Nonobstructive right renal calculus Possible mild bilateral lower extremity cellulitis Chronic lower extremity wounds Hypothyroidism CAD AFib with CVR COPD Peripheral neuropathy Prediabetes Hypertriglyceridemia Operations\Procedures: None Consultants: None Complications: None Condition on DC: Stable New Medications: Lactobacillus Rhamnosus (Culturelle) 10 Billion Cell Capsule 1 CAP PO DAILY for 30 Days, #30 CAP 0 Refills Levofloxacin (Levofloxacin) 500 Mg Tablet 1 TAB PO DAILY for 4 Days, #4 TAB Pantoprazole Sodium (PROTONIX tablet) 40 Mg Tablet.dr 40 MG PO DAILY for 30 Days, #30 TAB.SR Aspirin (Ecotrin*) 81 Mg Tablet.dr 1 TAB PO DAILY for 30 Days, #30 TAB.SR [tamsulosin capsule] () 0.4 MG CAP 0.4 MG PO HS for 30 Days, #30 Changed Medications: Atorvastatin Calcium* (Lipitor*) 20 Mg Tablet 2 TAB PO DAILY for 30 Days, #60 TAB (Changed from: 1 TAB) Continued Medications: Albuterol Sulfate (Ventolin Hfa) 90 Mcg Hfa.aer.ad 18 GM IH Q4H PRN for SOB or wheezing Apixaban (Eliquis) 5 Mg Tablet 1 TAB PO Q12H, TAB 0 Refills Carvedilol (Carvedilol) 12.5 Mg Tablet 1 TAB PO BID Digoxin (Digoxin) 125 Mcg (0.125 Mg) Tablet 1 TAB PO DAILY Duloxetine Hcl* (Cymbalta*) 30 Mg Capsule.dr 60 MG PO DAILY, CAP.SR Gabapentin (Neurontin) 300 Mg Capsule 1 CAP PO BID Levothyroxine Sodium (Levothyroxine Sodium) 75 Mcg Tablet 1 TAB PO DAILY Oxycodone Hcl/Acetaminophen (Oxycodone-Acetaminophen 10-325) 10 Mg-325 Mg Tablet 1 TAB PO BID Tiotropium [place] (Spiriva) 18 Mcg Cap.w.dev 1 CAP INH DAILY, CAP 0 Refills Discharge Summary: As above *Problems/Diagnosis: (1) Right renal stone Total Time Spent on D/C: > 30 Minutes Date of Service: Mar 05, 2025 Billing Provider: YUKO BELLE MD, MANOJNA [facility] Mar 05, 2025 19:38
[2025-03-06] MEDS ORDERED: pantoprazole 40mg Tablet.DR PO SCH (07:30)
[2025-03-06] MEDS ORDERED: OXYC-150 PO (18:27)
[2025-03-06] MEDS ORDERED: TAMS-55 PO (19:05)
== END 2025-03-05 16:25 | disposition home or self-care (01) | DRG 465 ==
LOC: ER 22:00 → ED HOLD 03-03 03:58 → ORTHO 4S 03-03 14:15
PROVIDERS: ADMIT Internal Medicine Critical Care Medicine; ATTEND Family Medicine
PROC: BW211ZZ Computerized Tomography (CT Scan) of Abdomen and Pelvis using Low Osmolar Contrast (ICD-10-PCS; principal; 2025-03-03)
PROC: 5A09357 Assistance with Respiratory Ventilation, Less than 24 Consecutive Hours, Continuous Positive Airway Pressure (ICD-10-PCS; 2025-03-03)
PROC: 5A09357 Assistance with Respiratory Ventilation, Less than 24 Consecutive Hours, Continuous Positive Airway Pressure (ICD-10-PCS; 2025-03-05)
DX: N20.0 Calculus of kidney (principal); E03.9 Hypothyroidism, unspecified; G62.9 Polyneuropathy, unspecified; I48.91 Unspecified atrial fibrillation; E78.1 Pure hyperglyceridemia; G89.29 Other chronic pain; I10 Essential (primary) hypertension; I25.10 Atherosclerotic heart disease of native coronary artery without angina pectoris; R73.03 Prediabetes; J44.9 Chronic obstructive pulmonary disease, unspecified; Z82.49 Family history of ischemic heart disease and other diseases of the circulatory system; Z83.3 Family history of diabetes mellitus; Z87.442 Personal history of urinary calculi; Z87.891 Personal history of nicotine dependence; Z90.49 Acquired absence of other specified parts of digestive tract; Z79.899 Other long term (current) drug therapy
CPT/HCPCS: 36415; 71275; 73610; 73700; 74176; 80048; 80053; 80061; 80162; 80202; 80305; 81001; 83036; 83605; 83690; 83735; 83880; 84132; 84145; 84443; 84484; 84550; 85007; 85008; 85025; 85610; 85651; 85730; 86140; 87081; 93005; 93306; 93970; 94640; 94660; 94760; 97116; 97161; 97530; 99285; G0378; J0696; J1171; J1644; J1885; J1956; J2270; J2405; J2470; J3375; J7030; Q9967

== ENCOUNTER 2025-03-19 15:04 | Emergency (ER) | payer MEDICAID ==
[~2025-03-19] VITALS: Ht 162.6 cm; Wt 97.7 kg
[~2025-03-19 15:04] MED LIST changes: +ASPI-1071 PO; -CYCL-394 PO; -EMPA10TA PO; +LACT1CAP26 PO; -OMEP40CA21 PO; +OXYC-150 PO; +PANT-47 PO; +TAMS-55 PO; +tamsulosin capsule PO
[2025-03-19 15:26] VITALS: TEMP 99.1
[2025-03-19 16:09] LABS: MEAN PLATELET VOLUME 6.7 FL (7.4-10.4); RED CELL DISTRIBUTION WIDTH 19.9 % (11.5-14.5)
--- NOTE | 2025-03-19 16:09 | RADIOLOGY REPORT ---
DI CHEST,SINGLE VIEW, HISTORY: SEPSIS PROTOCOL COMPARISON: CT CTA CHEST PE W/ IV CONTRAST on DOS: 03/03/25, DI CHEST,SINGLE VIEW on DOS: 08/24/24, DI CHEST,SINGLE VIEW on DOS: 07/05/24 CT CTA CHEST PE W/ IV CONTRAST on DOS: 03/03/25, DI CHEST,SINGLE VIEW on DOS: 08/24/24, DI CHEST,SINGLE VIEW on DOS: 07/05/24 TECHNICAL DATA: 1 view of the chest was obtained. FINDINGS: Lines and tubes: None Cardiomediastinal silhouette: normal Pulmonary vasculature: normal Lung expansion: normal Lung airspace: normal Lung interstitium: normal Pleura: normal Pneumothorax: no Bones: Unremarkable Other: no IMPRESSION: No acute intrathoracic abnormality.
[2025-03-19 16:19] LABS: CREATININE 0.79 MG/DL (0.60-1.10); TOTAL CARBON DIOXIDE 29.3 MMOL/L (24-32); eCRCL 96 ML/MIN; eGFR > 90 ML/MIN
[2025-03-19] MEDS ORDERED: DOXY-460 PO (17:03)
--- NOTE | 2025-03-19 17:03 | Physician Documentation ---
History of Present Illness ~ Chief Complaint: Wound Stated Complaint: LEG PAIN SWOLLEN Time Seen by MD: 16:19 Primary Medical Doctor: Dr. Gorman [facility] Source: patient Mode of Arrival: POV Exam Limitations: no limitations HPI Patient presents secondary to increased redness to his lower extremities with subjective fevers. Took Tylenol prior to arrival. Has history of chronic cellulitis to the bilateral lower extremities with wounds. Has recent referral to wound care made by his primary care secondary to his chronic wounds. Tetanus within 5 years?: No Medication Reconciliation Allergies: Coded Allergies: No Known Drug Allergies (Verified Allergy, Unknown, 03/19/25) Scheduled Apixaban (Eliquis), 1 TAB PO Q12H, (Reported) Aspirin (Ecotrin*), 1 TAB PO DAILY Atorvastatin Calcium* (Lipitor*), 2 TAB PO DAILY Carvedilol (Carvedilol), 1 TAB PO BID, (Reported) Digoxin (Digoxin), 1 TAB PO DAILY, (Reported) Doxycycline Monohydrate (Doxycycline Monohydrate), 1 CAP PO Q12H Duloxetine Hcl* (Cymbalta*), 60 MG PO DAILY, (Reported) Gabapentin (Neurontin), 1 CAP PO BID, (Reported) Lactobacillus Rhamnosus (Culturelle), 1 CAP PO DAILY Levothyroxine Sodium (Levothyroxine Sodium), 1 TAB PO DAILY, (Reported) Oxycodone Hcl/Acetaminophen (Oxycodone-Acetaminophen 10-325), 1 TAB PO BID, (Reported) Pantoprazole Sodium (PROTONIX tablet), 40 MG PO DAILY Tamsulosin Hcl* (Flomax*), 1 CAP PO DAILY Tiotropium Costilla (Spiriva), 1 CAP INH DAILY, (Reported) [tamsulosin capsule], 0.4 MG PO HS Scheduled PRN Albuterol Sulfate (Ventolin Hfa), 18 GM IH Q4H PRN for SOB or wheezing, (Reported) Oxycodone HCl/Acetaminophen (Percocet 10-325 mg Tablet), 1 TAB PO QID PRN PRN for pain Past Medical History Past Medical History: *CARDIOVASCULAR*, Atrial Fibrillation, Hypertension, COPD, GI Bleed, Hernia, Kidney Stones, Hypothyroidism, Deep Vein Thrombosis, Cellulitis Past Surgical History: appendectomy, cholecystectomy, orthopedic surgeries, other Other Past Surgical History: varicose vein sx Patient History: Diabetes mellitus in father FATHER FH: heart failure (father) FATHER Alcohol Use: Occasionally Drug Use: none Lives with: Spouse Lives In: Home Occupation: employed Review of Systems ROS Patient complains of erythema and subjective fever. No chest pain or pressure. No dizziness, lightheadedness or syncope. No abdominal pain. No nausea or vomiting. Was asked, but otherwise denies review of systems. Physical Exam Vital Signs: RN Vital Signs have been reviewed: Yes, Temperature: 99.1, Source: Oral, Heart Rate: 96, Respiratory Rate: 20, BP: 133/80, Pulse Oximetry: 98, Weight: 97.700 Pulse Oximetry Reflects: adequate oxygenation Physical Exam General: Awake, alert, oriented. No apparent distress Neck: Supple. Normal range of motion. No JVD Respiratory: Lungs are clear to auscultation bilaterally. No respiratory distress. Chest: Normal shape and size. No accessory muscle use. Cardiovascular: Regular rate and rhythm. S1-S2. No murmur, gallop, rub. Gastrointestinal: Abdomen is soft. Nontender to palpation. Bowel sounds present. Extremities: Lower extremities, bilateral with erythema. There chronic appearing wounds to the medial ankle. There is trace edema. Neurologic: Alert and oriented x4. Nonfocal Psychiatric: Normal mood and affect. Skin: Normal color. Warm and dry. Progress Results/Orders Results/Orders Orders - AMANDA GUERRERO YARD DRIVER Culture Blood (03/19/25 15:31) Chest,Single View (03/19/25 15:31) Monitor (03/19/25 15:31) Oxygen (03/19/25 15:31) Saline Lock (03/19/25 15:31) Completed Orders - AMANDA GUERRERO YARD DRIVER Cbc/Diff (03/19/25 15:31) Chest,Single View (03/19/25 15:31) Procalcitonin (03/19/25 15:31) BMP (03/19/25 15:31) Lacticsepsis (03/19/25 15:31) Doxycycline 100mg Capsule (Vibramycin 10 (03/19/25 17:03) Vital Signs 03/19/25 03/19/25 03/19/25 03/19/25 15:26 16:12 16:33 17:28 Temp 99.1 Pulse 110 96 86 Resp 19 15 20 18 B/P (MAP) 127/77 133/80 (97) 122/73 Pulse Ox 97 98 97 Laboratory Tests Test 03/19/25 15:48 White Blood Count 8.9 Red Blood Count 5.17 Hemoglobin 15.1 Hematocrit 45.5 Mean Corpuscular Volume 88.0 Mean Corpuscular Hemoglobin 29.2 Mean Corpuscular Hemoglobin Concent 33.2 Red Cell Distribution Width 19.9 H Platelet Count 236 Mean Platelet Volume 6.7 L Neutrophils (%) (Auto) 65.9 Lymphocytes (%) (Auto) 17.0 L Monocytes (%) (Auto) 13.3 H Eosinophils (%) (Auto) 3.4 Basophils (%) (Auto) 0.4 Neutrophils # (Auto) 5.9 Lymphocytes # (Auto) 1.5 Monocytes # (Auto) 1.2 H Eosinophils # (Auto) 0.3 Basophils # (Auto) 0.0 CBC Comment Sodium Level 140 Potassium Level 4.2 Chloride Level 101 Carbon Dioxide Level 29.3 Anion Gap 10 Blood Urea Nitrogen 15 Creatinine 0.79 Estimated GFR/1.73 m2 > 90 BUN/Creatinine Ratio 19.0 Glucose Level 106 H Lactic Acid Level 2.2 H Calcium Level 9.6 Albumin 4.1 Procalcitonin < 0.05 Chemistry Comments Microbiology Date/Time Source Procedure Growth Status 03/19/25 15:53 Blood Hand Left Blood Culture - Preliminary NO GROWTH AFTER 1 DAY Resulted Medical Decision Making Findings Meredith's history of diabetes and lower extremity wounds with cellulitis in the past presents secondary to lower extremity erythema, swelling, fevers. Concern for reoccurrence of his cellulitis. The wounds were assess. There is no purulent drainage. There is surrounding erythema and warmth to palpation. Suspect underlying cellulitis. He will given prescription for antibiotics. Follow up with primary care provider instructions provided. May need repeat referral to wound care which he states is pending. Differential Dx:Considerations: Include: Abscess, Cellulitis, Dressing change Departure Time of Disposition: 17:00 Disposition: HOME / SELF CARE / HOMELESS Impression: Primary Impression: Cellulitis Qualified Codes: L03.119 - Cellulitis of unspecified part of limb Condition: Stable Additional Instructions: Laboratory evaluation shaped your white blood cell count was normal. No evidence of systemic infection. Take antibiotics to completion. Follow up with your primary care provider. Recommend follow up with wound care as recommended by your primary care. Take [id number] ibuprofen or Tylenol for minor pain or fever. Return for increased erythema, swelling, or any new or worsening conditions. Referrals: NO PRIMARY CARE PROVIDER (PCP) Prescriptions Doxycycline Monohydrate (Doxycycline Monohydrate) 100 Mg Capsule 1 CAP PO Q12H for 7 Days, #14 CAP Prov: AMANDA GUERRERO NP 03/19/25 Education Educated: Patient Educated regarding: diagnosis, treatment, need for follow up Signature Scribe Signature: No scribe Attestation: The note accurately reflects work and decisions made by me.Amanda Guerrero - JORI 03/20/25 18:46 This note was created with the assistance of voice recognition software whereby errors in grammar, syntax, and/or spelling may have occurred despite active proofreading efforts by the author. Please do not hesitate to contact the provider for clarification or for questions regarding the content of this document. AMANDA GUERRERO NP Mar 19, 2025 17:03
[2025-03-19] MEDS: DOXYCYCLINE 100MG CAPSULE PO STA (17:24)
[2025-03-19 17:28] VITALS: BP 122/73; PULSE 86; RESP 18; O2SAT 97
== END 2025-03-19 17:29 | disposition home or self-care (01) ==
LOC: ER 15:04
DX: L03.116 Cellulitis of left lower limb (principal); L03.115 Cellulitis of right lower limb; I10 Essential (primary) hypertension; E03.9 Hypothyroidism, unspecified; I48.91 Unspecified atrial fibrillation; J44.9 Chronic obstructive pulmonary disease, unspecified; Z86.718 Personal history of other venous thrombosis and embolism; Z87.442 Personal history of urinary calculi; Z90.49 Acquired absence of other specified parts of digestive tract; Z79.82 Long term (current) use of aspirin; Z79.899 Other long term (current) drug therapy; Z72.89 Other problems related to lifestyle
CPT/HCPCS: 36415; 71045; 80048; 83605; 84145; 85025; 87040; 99284; A6222; A6258; A6449

== ENCOUNTER 2025-06-07 10:36 | Emergency (ER) | payer MEDICAID ==
[~2025-06-07] VITALS: Ht 162.6 cm; Wt 102.4 kg
[~2025-06-07 10:36] MED LIST changes: -TAMS-55 PO
[2025-06-07 10:53] VITALS: TEMP 96.9
[2025-06-07 11:42] LABS: LEUKOCYTE ESTERASE ,URINE NEGATIVE (Neg); NITRITES, URINE NEGATIVE (Neg); OCCULT BLOOD,URINE LARGE (Neg)
[2025-06-07 11:47] LABS: UA COLLECTION TYPE CLN CATCH MIDSTREAM
[2025-06-07 11:48] LABS: SQUAMOUS EPITHELIAL CELL,UR FEW /LPF (FEW)
[2025-06-07 13:35] LABS: MEAN PLATELET VOLUME 6.5 FL (7.4-10.4); RED CELL DISTRIBUTION WIDTH 16.3 % (11.5-14.5)
[2025-06-07 13:41] LABS: CREATININE 0.80 MG/DL (0.60-1.10); TOTAL CARBON DIOXIDE 26.8 MMOL/L (24-32); eCRCL 95 ML/MIN; eGFR > 90 ML/MIN
[2025-06-07] MEDS: ondansetron/PF 4mg/2ml inj IV STA (13:51)
[2025-06-07] MEDS: normal saline 1000ml 1,000 ML IV STA (13:52)
[2025-06-07] MEDS: morphine 4 MG/ML inj SYRINge IV STA (13:52)
[2025-06-07 14:07] LABS: EOSINOPHILS % (MANUAL) 3.0 % (0-6); LYMPHOCYTES % (MANUAL) 20.0 % (21-51); MONOCYTES % (MANUAL) 17.0 % (2-12); NEUTROPHILS % (MANUAL) 60.0 % (42-75)
[2025-06-07 14:08] LABS: PLATELET ESTIMATE NORMAL
--- NOTE | 2025-06-07 14:24 | RADIOLOGY REPORT ---
EXAM: CT CT ABDOMEN PELVIS HISTORY: kidney stone Comparison Study: CT CT ABDOMEN PELVIS on DOS: 03/02/25 Exam Date: 06/07/2025 01:56 PM Radiation Dose Information: CT Dose: CTDI volume is 33 mGy. Dose-length product is 1781 mGy*cm TECHNIQUE: Multidetector CT of the abdomen and pelvis was performed. Imaging was performed without IV contrast. Axial, coronal and sagittal multiplanar reformats were obtained from the axial data set by the technologist. FINDINGS: Lack of intravenous contrast compromises evaluation of perfusion and for isodense lesions. Lower chest: Clear. Liver: Unremarkable Biliary system: Surgically absent gallbladder Spleen: Unremarkable Pancreas: Unremarkable. Adrenals: Unremarkable. Kidneys and ureters: No hydronephrosis. Unchanged 9 mm nonobstructing calculus in the right kidney. Bowel: No obstruction. Status post appendectomy. Small hiatal hernia. Bladder: Unremarkable Reproductive organs: No abnormal mass. Lymph nodes: Unremarkable. Peritoneum: Unremarkable Vessels: Patency not evaluated on this noncontrast study. Bones and soft tissue: No aggressive osseous lesion IMPRESSION: No acute CT findings in the abdomen and pelvis.
[2025-06-07] MEDS ORDERED: ketorolac trometh 30MG/ML vial 30 MG/ML VIAL IM STA (15:08)
--- NOTE | 2025-06-07 15:11 | Physician Documentation ---
History of Present Illness ~ Chief Complaint: Flank Pain Stated Complaint: KIDNEY AND TOOTH PAIN Time Seen by MD: 12:29 OK to notify your PCP?: Yes [facility] Source: patient, RN/MD Mode of Arrival: Dropped Off HPI Patient is seen today with complaints of dental pain as well as right-sided flank pain and hematuria. Patient does admit to history of kidney stones states he feels like he is having another one. Patient states he has history of a large kidney stone that they left last time and states he has no history of lithotripsy or surgery or stent placement. Patient states his tooth in the right upper molar is painful and filling fell out and he feels like it is swollen and infected. He has no other concern or complaint at this time. Medication Reconciliation Allergies: Coded Allergies: No Known Drug Allergies (Verified Allergy, Unknown, 06/07/25) Scheduled Amoxicillin Trihydrate (Amoxicillin), 1 TAB PO Q12H Apixaban (Eliquis), 1 TAB PO Q12H, (Reported) Aspirin (Ecotrin*), 1 TAB PO DAILY Atorvastatin Calcium* (Lipitor*), 2 TAB PO DAILY Carvedilol (Carvedilol), 1 TAB PO BID, (Reported) Digoxin (Digoxin), 1 TAB PO DAILY, (Reported) Duloxetine Hcl* (Cymbalta*), 60 MG PO DAILY, (Reported) Gabapentin (Neurontin), 1 CAP PO BID, (Reported) Lactobacillus Rhamnosus (Culturelle), 1 CAP PO DAILY Levothyroxine Sodium (Levothyroxine Sodium), 1 TAB PO DAILY, (Reported) Oxycodone Hcl/Acetaminophen (Oxycodone-Acetaminophen 10-325), 1 TAB PO BID, (Reported) Pantoprazole Sodium (PROTONIX tablet), 40 MG PO DAILY Tiotropium Forrest (Spiriva), 1 CAP INH DAILY, (Reported) [tamsulosin capsule], 0.4 MG PO HS Scheduled PRN Albuterol Sulfate (Ventolin Hfa), 18 GM IH Q4H PRN for SOB or wheezing, (Reported) Hydrocodone Bit/Acetaminophen (Hydrocodone-Apap 10-325 Tablet), 1 TAB PO TID PRN PRN for pain Oxycodone HCl/Acetaminophen (Percocet 10-325 mg Tablet), 1 TAB PO QID PRN PRN for pain Past Medical History Past Medical History: *CARDIOVASCULAR*, Atrial Fibrillation, Hypertension, COPD, GI Bleed, Hernia, Kidney Stones, Hypothyroidism, Deep Vein Thrombosis, Cellulitis Past Surgical History: appendectomy, cholecystectomy, orthopedic surgeries, other Other Past Surgical History: varicose vein sx Patient History: Diabetes mellitus in father FATHER FH: heart failure (father) FATHER Alcohol Use: Occasionally Drug Use: none Lives with: Spouse Lives In: Home Occupation: employed Review of Systems Constitutional: Denies: chills, fever, weakness Eyes: Denies: pain, blurred vision ENT: Denies: ear pain, nose pain, throat pain, mouth pain Respiratory: Denies: cough, shortness of breath Cardiovascular: Denies: chest pain, palpitations Gastrointestinal: Denies: abdominal pain, nausea, vomiting Genitourinary: Denies: burning, dysuria Male Genitalia: Denies: penile discharge, testicular pain Neurological: Denies: headache, dizziness Musculoskeletal: Denies: pain, swelling Integumentary: Denies: rash, lesions Allergic/Immunologic: Denies: hives, itching Hematologic/Lymphatic: Denies: no symptoms reported Psychiatric: Denies: depression, anxiety Physical Exam Vital Signs: Temperature: 96.9, Source: Temporal, Heart Rate: 95, Respiratory Rate: 18, BP: 110/82, Pulse Oximetry: 97, Weight: 102.400 Oxygen Flow Rate: 0 Physical Exam General: Awake and Alert, no acute distress. HEENT: On exam I do not appreciate any periapical abscess or significant swelling. Patient does have missing filling of right upper molar. and a few missing teeth Neck: Supple without masses and tenderness. Resp: Unlabored. Lungs clear to auscultation bilaterally. Heart: Regular Rate and rhythm, normal S1 and S2 without murmur, rub or gallop. Abdomen: Soft and non tender no organomegaly. on exam the patient has no CVA tenderness. Extremities: No cyanosis,clubbing or edema. Skin: Warm and Dry. Progress Results/Orders Results/Orders Orders - RAINA RASMUSSEN PAC Urinalysis, Cult If Indicated (06/07/25 12:36) Saline Lock (06/07/25 ) Ct Abdomen Pelvis (06/07/25 14:00) Completed Orders - RASMUSSEN,RAINA R PAC Normal Saline 1000ml (0.9% Sodium Chlori (06/07/25 13:05) Morphine 4mg/Ml Inj. (Morphine Inj.) (06/07/25 13:05) Ondansetron Inj. (Zofran 4mg/2ml Vial) (06/07/25 13:05) Tamsulosin Capsule (Flomax Capsule) (06/07/25 13:05) Cbc/Diff (06/07/25 13:08) BMP (06/07/25 13:08) Ct Abdomen Pelvis (06/07/25 14:00) Man Diff (06/07/25 13:16) Ketorolac Trometh 30mg/Ml Vial (Toradol (06/07/25 15:46) Medications Received in ER Medications (Trade) Dose Ordered Sig/Jayy Route PRN Reason Start Time Stop Time Status Last Admin Dose Admin Sodium Chloride 1,000 ml @ 1,000 mls/hr ONCE STAT IV 06/07/25 13:05 06/07/25 14:04 DC 06/07/25 13:52 1,000 MLS/HR (morphine inj.) 4 mg ONCE STAT IV 06/07/25 13:05 06/07/25 13:08 DC 06/07/25 13:52 4 MG (Zofran 4mg/2ml vial) 4 mg ONCE STAT IV 06/07/25 13:05 06/07/25 13:08 DC 06/07/25 13:51 4 MG (Flomax capsule) 0.4 mg ONCE STAT PO 06/07/25 13:05 06/07/25 13:08 DC 06/07/25 13:53 0.4 MG (Toradol inj. 30mg/ml) 30 mg ONCE STAT IV 06/07/25 15:46 06/07/25 15:49 DC 06/07/25 15:53 30 MG Vital Signs 06/07/25 06/07/25 06/07/25 06/07/25 10:53 11:35 12:15 13:15 Temp 96.9 Pulse 112 98 95 Resp 20 18 18 B/P (MAP) 155/86 119/80 (93) 110/82 (91) Pulse Ox 97 97 97 O2 Flow Rate 0 0 0 12/9/25 12/9/25 12/9/25 12/9/25 13:52 14:19 15:15 15:53 Pulse 103 100 Resp 18 16 16 18 B/P (MAP) 146/91 (109) 131/83 (99) Pulse Ox 98 98 O2 Flow Rate 0 0 Laboratory Tests Test 06/07/25 10:58 06/07/25 13:16 Urine Specimen Description Cln catch midstream Urine Color Yellow Urine Clarity Cloudy Urine pH 5.5 Urine Specific Hunt[place] >=1.030 Urine Protein 30 H Urine Glucose (UA) Negative Urine Ketones Negative Urine Occult Blood Large H Urine Nitrite Negative Urine Bilirubin Negative Urine Urobilinogen 0.2 Urine Leukocyte Esterase Negative Urine RBC Tntc Urine WBC 0-4 Urine Squamous Epithelial Cells Few Urine Bacteria 2+ Urine Culture Indicated Not ind Volume Urine Centrifuged 10 ml Urine Comment White Blood Count 7.5 Red Blood Count 4.74 Hemoglobin 15.1 Hematocrit 43.5 Mean Corpuscular Volume 91.9 Mean Corpuscular Hemoglobin 31.8 H Mean Corpuscular Hemoglobin Concent 34.6 Red Cell Distribution Width 16.3 H Platelet Count 211 Mean Platelet Volume 6.5 L Neutrophils (%) (Auto) 58.4 Lymphocytes (%) (Auto) 19.7 L Monocytes (%) (Auto) 18.8 H Eosinophils (%) (Auto) 2.7 Basophils (%) (Auto) 0.4 Neutrophils # (Auto) 4.4 Lymphocytes # (Auto) 1.5 Monocytes # (Auto) 1.4 H Eosinophils # (Auto) 0.2 Basophils # (Auto) 0.0 CBC Comment Differential Total Cells Counted 100 Neutrophils % (Manual) 60.0 Lymphocytes % (Manual) 20.0 L Monocytes % (Manual) 17.0 H Eosinophils % (Manual) 3.0 Platelet Estimate Normal Red Blood Cell Morphology Perf Basophilic Stippling Anisocytosis 1+ Sodium Level 141 Potassium Level 4.2 Chloride Level 105 Carbon Dioxide Level 26.8 Anion Gap 9 Blood Urea Nitrogen 13 Creatinine 0.80 Estimated GFR/1.73 m2 > 90 BUN/Creatinine Ratio 16.3 Glucose Level 130 H Calcium Level 9.1 Albumin 4.0 Chemistry Comments EKG/XRAY/CT/US/VASC/MRI CT : Impression CAT SCAN Patient: CHAVEZ GIBBS Medical Record: [id number] [facility] : 1975, Age: 50 Sex: Male Location: ER Patient Status: [facility] ER Service Date/Time: 06/07/251399 Ordering Physician: RAINA RASMUSSEN PAC Exam: CT ABDOMEN PELVIS EXAM: CT CT ABDOMEN PELVIS HISTORY: kidney stone Comparison Study: CT CT ABDOMEN PELVIS on DOS: 03/02/25 Exam Date: 06/07/2025 01:56 PM Radiation Dose Information: CT Dose: CTDI volume is 33 mGy. Dose-length product is 1781 mGy*cm TECHNIQUE: Multidetector CT of the abdomen and pelvis was performed. Imaging was performed without IV contrast. Axial, coronal and sagittal multiplanar reformats were obtained from the axial data set by the technologist. FINDINGS: Lack of intravenous contrast compromises evaluation of perfusion and for isodense lesions. Lower chest: Clear. Liver: Unremarkable Biliary system: Surgically absent gallbladder Spleen: Unremarkable Pancreas: Unremarkable. Adrenals: Unremarkable. Kidneys and ureters: No hydronephrosis. Unchanged 9 mm nonobstructing calculus in the right kidney. Bowel: No obstruction. Status post appendectomy. Small hiatal hernia. Bladder: Unremarkable Reproductive organs: No abnormal mass. Lymph nodes: Unremarkable. Peritoneum: Unremarkable Vessels: Patency not evaluated on this noncontrast study. Bones and soft tissue: No aggressive osseous lesion IMPRESSION: No acute CT findings in the abdomen and pelvis. Electronically Signed by:WILD RODRIGUEZ MD Date & Time: 06/07/25 1421 Dictated by: WILD RODRIGUEZ MD Dictation date and time: 06/07/251399 Primary Care Provider: NO PRIMARY CARE PROVIDER cc: RAINA RASMUSSEN PAC ~ Medical Decision Making Additional information obtaine: N/A Findings Patient is seen today with complaints of dental pain as well as right-sided fl ank pain and hematuria. Patient does admit to history of kidney stones states he feels like he is having another one. Patient states he has history of a large kidney stone that they left last time and states he has no history of lithotripsy or surgery or stent placement. Patient states his tooth in the right upper molar is painful and filling fell out and he feels like it is swo llen and infected. He has no other concern or complaint at this time. Patient did have CT scan that did show a 9 mm nonobstructing kidney stone in the right kidney without any hydronephrosis. CT of abdomen was otherwise unremarkable. Patient was given morphine 4 mg IV, Zofran 4 mg IV, L of normal saline, tamsulosin, and patient was sent home with prescription for amoxicillin and [place] 10/325 mg to be taken as directed. Patient will follow up with primary care for referral to Urology for further eval and treatment of hematuria and kidney stone. Return to ED with any worsening, concerning or changing symptoms. Patient will continue Tylenol and ibuprofen as needed for pain management. Urinary Diff Dx:Considerations: Include: Renal failure, Urolithiasis, Urinary Obstruction, Urethritis, Urinary retention, UTI Genital Diff Dx:Considerations: Unlikely: Abscess, Balanitis, Balanoposthitis, Cellulitis, Epididymitis, Entrapment injury, Saira's gangrene, Foreign body, Facture penis, Hydrocele, Inguinal hernia, Post-op Complication, Paraphimosis, Prostatitis, Priapism, Syphilis, Testicular torsion, Torsion-epididymis, Torsion-appendiceal, Urinary retention, Urethritis, Urethritis-chlamydial, Urethritis-gonococcal, UTI, Other Departure Disposition: 01 HOME / SELF CARE / HOMELESS Impression: Primary Impression: Calculus of kidney Additional Impression: Pain, dental Condition: Improved Discharge Instructions: Kidney Stones Additional Instructions: Patient did have CT scan that did show a 9 mm nonobstructing kidney stone in the right kidney without any hydronephrosis. CT of abdomen was otherwise unremarkable. Patient was given morphine 4 mg IV, Zofran 4 mg IV, L of normal saline, tamsulosin, and patient was sent home with prescription for amoxicillin and [place] 10/325 mg to be taken as directed. Patient will follow up with primary care for referral to Urology for further eval and treatment of hematuria and kidney stone. Return to ED with any worsening, concerning or changing symptoms. Patient will continue Tylenol and ibuprofen as needed for pain ma nagement. Referrals: NO PRIMARY CARE PROVIDER (PCP) Prescriptions Hydrocodone Bit/Acetaminophen (Hydrocodone-Apap 10-325 Tablet) 10mg/325mg Tablet 1 TAB PO TID PRN PRN for pain for 5 Days, #15 TAB Prov: RAINA RASMUSSEN 06/07/25 Amoxicillin Trihydrate (Amoxicillin) 875 Mg Tablet 1 TAB PO Q12H for 10 Days, #20 TAB Prov: RAINA RASMUSSEN 06/07/25 Signature Scribe Signature: No scribe Attestation: No scribe RAINA RASMUSSEN Jun 07, 2025 15:11
[2025-06-07] MEDS ORDERED: HYDR-3973 PO ×2 (15:51→15:56)
[2025-06-07] MEDS ORDERED: AMOX875T10 PO (15:51)
[2025-06-07] MEDS: ketorolac trometh 30MG/ML vial 30 MG/ML VIAL IV STA (15:53)
[2025-06-07 16:05] VITALS: BP 128/80; PULSE 103; RESP 19; O2SAT 97
== END 2025-06-07 16:17 | disposition home or self-care (01) ==
LOC: ER 10:37
DX: N20.0 Calculus of kidney (principal); K08.89 Other specified disorders of teeth and supporting structures; J44.9 Chronic obstructive pulmonary disease, unspecified; I48.91 Unspecified atrial fibrillation; I10 Essential (primary) hypertension; E03.9 Hypothyroidism, unspecified; Z86.718 Personal history of other venous thrombosis and embolism; Z87.442 Personal history of urinary calculi; Z90.49 Acquired absence of other specified parts of digestive tract; Z79.82 Long term (current) use of aspirin; Z79.899 Other long term (current) drug therapy; Z72.89 Other problems related to lifestyle
CPT/HCPCS: 74176; 80048; 81001; 85007; 85025; 96361; 96374; 96375; 99285; J1885; J2270; J2405; J7030

== ENCOUNTER 2025-06-08 16:47 | Emergency (ER) | payer MEDICAID ==
[~2025-06-08] VITALS: Ht 162.6 cm; Wt 101.6 kg
[~2025-06-08 16:47] MED LIST changes: +AMOX875T10 PO; +HYDR-3973 PO
[2025-06-08 16:54] VITALS: BP 142/69; PULSE 111; O2SAT 95
[2025-06-08 18:39] VITALS: RESP 16
[2025-06-08] MEDS: HYDROcodone/acetaminophen 10/325mg tab PO ONE (18:39)
--- NOTE | 2025-06-08 18:44 | Physician Documentation ---
History of Present Illness ~ Chief Complaint: Back Pain Stated Complaint: KIDNEY STONES Time Seen by MD: 18:16 Primary Medical Doctor: Dr. Gorman, [facility] This is a 50-year-old male with a history of kidney stones who presents back to the emergency department with right flank pain after being diagnosed with a 9 mm nonobstructing kidney stone yesterday, patient was unable to pickling grader his prescribed pain medication due to transportation issues however after discussing with patient and nursing staff we will be able to provide a cab ride for the patient and he agrees with plan to be discharged to pickling grader pain medications. Patient reports no other acute symptoms or concerns including no fever. Medication Reconciliation Allergies: Coded Allergies: No Known Drug Allergies (Verified Allergy, Unknown, 06/07/25) Scheduled Amoxicillin Trihydrate (Amoxicillin), 1 TAB PO Q12H Apixaban (Eliquis), 1 TAB PO Q12H, (Reported) Aspirin (Ecotrin*), 1 TAB PO DAILY Atorvastatin Calcium* (Lipitor*), 2 TAB PO DAILY Carvedilol (Carvedilol), 1 TAB PO BID, (Reported) Digoxin (Digoxin), 1 TAB PO DAILY, (Reported) Duloxetine Hcl* (Cymbalta*), 60 MG PO DAILY, (Reported) Gabapentin (Neurontin), 1 CAP PO BID, (Reported) Lactobacillus Rhamnosus (Culturelle), 1 CAP PO DAILY Levothyroxine Sodium (Levothyroxine Sodium), 1 TAB PO DAILY, (Reported) Oxycodone Hcl/Acetaminophen (Oxycodone-Acetaminophen 10-325), 1 TAB PO BID, (Reported) Pantoprazole Sodium (PROTONIX tablet), 40 MG PO DAILY Tiotropium [place] (Spiriva), 1 CAP INH DAILY, (Reported) [tamsulosin capsule], 0.4 MG PO HS Scheduled PRN Albuterol Sulfate (Ventolin Hfa), 18 GM IH Q4H PRN for SOB or wheezing, (Reported) Hydrocodone Bit/Acetaminophen (Hydrocodone-Apap 10-325 Tablet), 1 TAB PO TID PRN PRN for pain Oxycodone HCl/Acetaminophen (Percocet 10-325 mg Tablet), 1 TAB PO QID PRN PRN for pain Past Medical History Past Medical History: *CARDIOVASCULAR*, Atrial Fibrillation, Hypertension, COPD, GI Bleed, Hernia, Kidney Stones, Hypothyroidism, Deep Vein Thrombosis, Cellulitis Past Surgical History: appendectomy, cholecystectomy, orthopedic surgeries, other Other Past Surgical History: varicose vein sx Patient History: Diabetes mellitus in father FATHER FH: heart failure (father) FATHER Alcohol Use: Occasionally Drug Use: none Lives with: Spouse Lives In: Home Occupation: employed Review of Systems ROS As stated above in the HPI, otherwise all systems are reviewed and negative. Physical Exam Physical Exam Vital Signs: Heart Rate: 111, Respiratory Rate: 18, BP: 142/69, Pulse Oximetry: 95, Weight: 101.600 Physical Exam VITALS: Reviewed and as above. GENERAL: Alert, nontoxic appearing, no apparent distress. RESPIRATORY: No increased work of breathing, no respiratory distress, speaking in full clear sentences, clear lung sounds all hood CV: Regular rate and rhythm no murmur BACK: No CVA tenderness GI: Soft, nontender, no rebound, no guarding SKIN: Warm and dry, no abdominal ecchymosis Progress Results/Orders Results/Orders Completed Orders - CHANO LOYA [facility]ER Hydrocodone/Apap 10/325 ([place] 10/325mg (06/08/25 18:25) Vital Signs 06/08/25 06/08/25 06/08/25 16:54 18:39 19:26 Pulse 111 Resp 18 16 B/P (MAP) 142/69 Pulse Ox 95 Medical Decision Making Additional information obtaine: old records Findings This is a 50-year-old male with a history of kidney stones who presented back to the emergency department with right flank pain after being diagnosed with a 9 mm nonobstructing kidney stone yesterday, patient was unable to pickling grader his prescribed pain medication due to transportation issues however after discussing with patient and nursing staff we will be able to provide a cab ride for the patient and he agrees with plan to be discharged to pickling grader pain medications. Patient reports no other acute symptoms or concerns including no fever which is reassuring. Patient is otherwise well-appearing and physical exam benign, patient medicated for pain. Patient provided home care instructions return to care precautions, and follow up instructions including following up with [facility]. Patient verbalized understanding of all discharge instructions. Differential Dx:Considerations: Aortic dissection, Appendicitis, Bowel obstruction, Cholelithiasis, Cholangitis, Musculoskeletal pain, Pancreatitis, Pyelonephritis, Urinary obstruction, Urolithiasis, Renal infarction, Urinary tract infection Departure Time of Disposition: 18:43 Disposition: 01 HOME / SELF CARE / HOMELESS Impression: Primary Impression: Flank pain Qualified Codes: R10.A1 - Flank pain, right side Condition: Improved Discharge Instructions: Kidney Stones, [id number] Additional Instructions: Please follow up with a urologist, you may try contacting the urologist at the number provided though you will likely need a referral through primary care. Please take the medications you were previously prescribed. Please follow up with your primary care provider or the [facility] van in the next few days. Please return to the emergency department for any new or worsening concerning symptoms. Referrals: NO PRIMARY CARE PROVIDER (PCP) DALIA YO MD Education Educated: Patient Educated regarding: diagnosis, treatment, prognosis, need for follow up Signature Scribe Signature: No scribe Attestation: The note accurately reflects work and decisions made by me.IAM Christian 06/09/25 08:52 CHANO LOYA Jun 08, 2025 18:44
== END 2025-06-08 19:27 | disposition home or self-care (01) ==
LOC: ER 16:48
DX: R10.A1 Flank pain, right side (principal); E03.9 Hypothyroidism, unspecified; I10 Essential (primary) hypertension; I48.91 Unspecified atrial fibrillation; J44.9 Chronic obstructive pulmonary disease, unspecified; Z90.49 Acquired absence of other specified parts of digestive tract; Z79.82 Long term (current) use of aspirin
CPT/HCPCS: 99283